=== PATIENT | female | born 1955 | race Caucasian/White ===

== ENCOUNTER 2023-08-09 07:34 | Outpatient (REF) | payer OTHER, SELFPAY ==
--- NOTE | ~2023-08-09 | XR_ITS ---
EXAMINATION: XR HIP, RIGHT CLINICAL INFORMATION: Pain in right hip COMPARISON: None available. TECHNIQUE: AP pelvis and Two views of the right hip. FINDINGS: No fracture. Alignment is anatomic. Hip joint spaces are well maintained. Subchondral sclerosis is seen along the superior-lateral aspect of each acetabulum. The sacroiliac joints and pubic symphysis are normal. Soft tissues are unremarkable. XR/XR hip RT min 2V IMPRESSION: Mild degenerative change of the hips.
== END 2023-08-09 07:35 | disposition home or self-care (01) ==
LOC: HO.HOSX 07:34
PROVIDERS: Visit Provider Physician Assistant
DX: M70.61 Trochanteric bursitis, right hip (principal)
CPT/HCPCS: 20610; 73502; J1010

== ENCOUNTER 2023-08-09 09:36 | Outpatient (AMB) | payer OTHER, SELFPAY ==
--- NOTE | 2023-08-09 09:56 | MHC.OFFVIS ---
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 Patient reports her pain has been present for over a year. She was previously seen at [facility] and had an MRI done of her left pelvis. Currently she is unable to lay on her right side, stating feels like a lump on her hip. Her pain is located in her groin and lower back pain area. States a tenderness on the outside of her hip. No previous tx. Allergies azithromycin Allergy (Unknown, Verified 08/09/23 10:10) redness, sensative clotrimazole Allergy (Unknown, Verified 08/09/23 10:10) sensativity codeine Allergy (Unknown, Verified 08/09/23 10:10) Hives metronidazole Allergy (Unknown, Verified 08/09/23 10:10) sensativity povidone-iodine [Betadine] Allergy (Unknown, Verified 08/09/23 10:10) sensitivity soap [Betadine] Allergy (Unknown, Verified 08/09/23 10:10) sensativity sucralfate [Carafate] Allergy (Unknown, Verified 08/09/23 10:10) sensativity Erythromycin Allergy (Unknown, Uncoded 08/09/23 10:10) Hives sulfa Allergy (Unknown, Uncoded 08/09/23 10:10) Hives HPI HPI 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 She was previously seen at [facility] where an MRI was performed on her left pelvis. She reports she has pain at her groin and lower back region. She also states she has tenderness on the outside of her hip. She notices a lump as well as numbness and tingling with sleeping on her right side. She has not had any physical therapy or treatment for her hip. She does not have a history of diabetes. 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 Review of Systems Const All systems reviewed & are unremarkable except as noted in HPI and below Physical Exam Vital Signs: BMI result Body Mass Index 36.4 Const General: cooperative, healthy appearing, comfortable, no acute distress, well developed and alert Orientation/consciousness: patient oriented x3 HEENT Head: Yes normal to inspection, Yes normocephalic and Yes atraumatic Eyes General: appearance normal, both eyes and all related structures Resp Effort & Inspection: normal respiratory effort and able to speak in complete sentences Cardio Rate: regular rate Peripheral pulses: Peripheral pulses 2+ throughout GI Palpation (GI): Soft to palpation Skin Lesions: no lesions Rashes: no rashes Neuro General: patient oriented x3 Extrem Other: Right hip: Normal to inspection. No pain with ROM of the hip. Pain along the greater trochanter. No pain with hip flexion or abduction. Negative tenderness along the SI joint, Negative SLR. NVI. Office Procedures Joint Injection/Drain Joint Injection/Drain Details: right trochanteric bursa Prep: site was prepped using aseptic technique, ethochloride spray was applied and injection warnings given Injected: 80 mg of, DepoMedrol, with 8 mL of and 1% plain lidocaine Procedure: The patient tolerated the procedure well and there was some relief with the local anesthesia Coding 15243 - Glenohumeral/Tronchanteric Bursa/Intraarticular Procedure code (CPT) selection complete Results Reviewed Results Reviewed: Xrays were obtained in the office today and personally reviewed by me of the right hip show mild oa Assessment & Plan Assessment & Plan (1) Trochanteric bursitis, right hip: Code(s): M70.61 - Trochanteric bursitis, right hip Category: Medical Plan We discussed options today which include steroid injection. They did consent to move forward with the right hip injection, which was tolerated well. I recommended rest, ice and elevation and OTC anti-inflammatories PRN for discomfort. A course of physical therapy was also placed in the office today. If symptoms persist or worsens over the next 6-8 weeks, patient will contact the office, otherwise follow-up as needed. Orders: Orders XR hip RT min 2V Today M25.551 - Pain in right hip PT Evaluation and Treatment Today M70.61 - Trochanteric bursitis, right hip Patient Instructions: Scribed for Ta-Gillian Puente PA-C, by kirti Tam scribe, on 08/09/2023 at 9:45 AM EST.? I, Abena Puente PA-C, have personally reviewed and agree with the information entered by the heather. Coding Level of Care Code New Pt Level 3 (60834) Diagnoses Trochanteric bursitis, right hip M70.61 CPT Codes Coding - Joint 7: 36876 - Glenohumeral/Tronchanteric Bursa/Intraarticular ([id number])
[2023-08-09 10:05] VITALS: BMI 36.4
== END 2023-08-09 10:33 | disposition home or self-care (01) ==
PROVIDERS: PCP Family Medicine; Visit Provider Physician Assistant
DX: M70.61 Trochanteric bursitis, right hip (principal)
CPT/HCPCS: 20610; 99203

== ENCOUNTER 2023-08-27 09:28 | Outpatient (AMB) | payer OTHER, SELFPAY ==
[2023-08-27 09:35] VITALS: BP 113/59; PULSE 73; BMI 36.0
--- NOTE | 2023-08-27 09:35 | A.OFFVIS_ITS ---
Vital Signs 08/27/23 09:35 Height 5 ft 5 in Weight 216 lb 7.903 oz BMI 36.0 BP 113/59 L Blood Pressure Location Lt brachial Position Sitting Pulse 73 Intake Visit Reasons: gastritis Intake Note: Aliyah presents to in office visit as a new patient for gastritis. CC: Per patient she has seen Dr Modi in the past when he use to work at [facility] and underwent colonoscopy with him. Patient c/o a lot of nausea and GERD. Per patient she mostly has mushy stools, c/o LUQ abdominal pain, and LLQ pain. Per patient she can't take PPIs because she is very sensitive to them. 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 Required: No Accompanied by: Self / Same As Patient Allergies erythromycin base Allergy (Severe, Verified 08/27/23 09:43) Hives Sulfa (Sulfonamide Antibiotics) Allergy (Severe, Verified 08/27/23 09:43) Hives azithromycin Allergy (Unknown, Verified 08/27/23 09:35) redness, sensative cephalexin [From Keflex] Allergy (Unknown, Verified 08/27/23 09:35) Unknown clotrimazole Allergy (Unknown, Verified 08/27/23 09:35) sensativity codeine Allergy (Unknown, Verified 08/27/23 09:35) Hives esomeprazole [From Nexium] Allergy (Unknown, Verified 08/27/23 09:35) Unknown levofloxacin [From Levaquin] Allergy (Unknown, Verified 08/27/23 09:35) Unknown metronidazole Allergy (Unknown, Verified 08/27/23 09:35) sensativity omeprazole Allergy (Unknown, Verified 08/27/23 09:35) Unknown povidone-iodine [Betadine] Allergy (Unknown, Verified 08/27/23 09:35) sensitivity rabeprazole [From AcipHex] Allergy (Unknown, Verified 08/27/23 09:35) Unknown soap [Betadine] Allergy (Unknown, Verified 08/27/23 09:35) sensativity sucralfate [Carafate] Allergy (Unknown, Verified 08/27/23 09:35) sensativity tetracycline Allergy (Unknown, Verified 08/27/23 09:35) Unknown HPI HPI gastritis: Details: 67-year-old female here for initial evaluation of ?gastritis. ? she is referred by [facility]. 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 EGD equal focal area of SSBE Cholecystectomy Tubal ligation Tonsillectomy Thyroglossal cyst removal Oophorectomy * ALLERGIES AcipHex - confusion Graham bandage Betadine Keflex - red face Latex Levaquin - night terrors Nexium - depression Septra Zithromax - hives Clotrimazole - hives Codeine - paresthesias Doxycycline - red face Erythromycin - hives Flagyl - neuropathy Omeprazole - arm pain Sulfa - hives Tetracycline - red face * twidox LABS: No labs in our system TODAY'S VISIT She is mostly here just to establish care since her insurance will soon change from [employer] insurance to Medicare. She has GERD and Sjogrens so that makes it worse. She had seen Dr. Modi in the past and she was told there were magnets they could put in my stomach. I advise her that this is a new and specialized procedure that is only done at tertiary centers and she would have to see surgeons at [facility] for this. (she works for [employer]). She says she can not take any H2 or PPI's but she does use TUMS. I suggest that she try baking soda in water. She is trying to eat smaller meals and control her diet. She will get pain in the LUQ and LLQ but she suffers IBS-M. We discuss peppermint tincture or IB Guard. She also will use cheese (WISPS) to bind her up and prunes for loosening my bowels. She admits she does not always drink e nough water. ROV 6 mos. 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 Review of Systems Const Denies fatigue, Denies fever(s), Denies night sweats, Denies poor appetite and Denies weight loss Eyes Details: glasses Reports requires corrective lenses ENT Reports Normal hearing present, Denies dental pain, Denies dysphagia, Denies hearing loss, Denies mouth pain, Denies odynophagia, Denies throat swelling, Denies tongue swelling and Reports other (Dentition adequate) Card Reports no additional complaints Resp Reports no additional complaints GI Details: Denies abdominal pain, Denies melena, Denies bloating, Denies hematochezia, Reports constipation, Denies GI cramping, Denies dysphagia, Denies excessive flatus, Denies early satiety, Reports heartburn, Reports diarrhea, Denies nause a, Denies odynophagia, Denies vomiting and Denies hematemesis Skin/Breast Denies pruritus, Denies lesions, Denies rash and Denies jaundice Neuro Reports Normal hearing present and Denies Abnormal speech present Endo Denies fatigue Aller/Immun Denies throat swelling and Denies tongue swelling Physical Exam Vital Signs: Last Vital Signs Pulse 73 08/27/23 09:35 BP 113/59 L 08/27/23 09:35 BMI result Body Mass Index 36.0 Const General: cooperative, no acute distress, well developed and well groomed Nutritional Appearance: well nourished and obese Orientation/consciousness: oriented to person, oriented to place and oriented to time Limitations: No language barrier HEENT Head: Yes normocephalic and Yes atraumatic Eyes General: appearance normal, both eyes and all related structures Pupils: Equal, round and reactive pupils present Neck Neck: Yes normal visual inspection and Yes no lymphadenopathy Thyroid: Thyroid normal Resp Effort & Inspection: normal respiratory effort and able to speak in complete sentences Auscultation: clear to auscultation bilaterally Cardio Rate: regular rate Rhythm: regular rhythm Heart sounds: Normal, physiologic split S2 sound present Peripheral pulses: radial pulses present and posterior tibial pulses present GI Inspection: No distended, No Abdominal panniculus present and Yes obesity Palpation (GI): Soft to palpation, nontender, no guarding, not rigid and No hepatosplenomegaly present Percussion: Yes normal to percussion Auscultation: normal bowel sounds Rectal Exam - Female: deferred Skin General skin exam: no rashes or lesions noted, turgor normal, skin not dry, no jaundice, No spider nevi and no striae Rashes: no rashes Nails: normal Neuro General: oriented to person, oriented to place and oriented to time Cranial nerves: Yes Equal, round and reactive pupils present and Yes Normal hearing present Speech: No Abnormal speech present Extrem General: Yes normal to inspection, No clubbing, No cyanosis and No edema Psych Appearance: grossly normal and well kempt Mental Status: mental status grossly normal Speech and movement: Normal speech and movement present Affect: normal affect Attitude: cooperative Thought process: Normal thought process present and not confabulating Thought content: Normal thought content present Insight: Good insight present (Psych) Judgement: Good judgement present (Psych) Assessment & Plan Assessment & Plan (1) 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 She has GERD and Sjogrens so that makes it worse. She had seen Dr. Modi in the past and she was told there were magnets they could put in my stomach. I advise her that this is a new and specialized procedure that is only done at tertiary centers and she would have to see surgeons at [facility] for this. (she works for [employer]). She says she can not take any H2 or PPI's but she does use TUMS. I suggest that she try baking soda in water. She is trying to eat smaller meals and control her diet. She will get pain in the LUQ and LLQ but she suffers IBS-M. We discuss peppermint tincture or IB Guard. She also will use cheese (WISPS) to bind her up and prunes for loosening my bowels. She admits she does not always drink en ough water. ROV 6 mos. Coding Level of Care Code New Pt Level 3 (42832) Diagnoses 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 K22.70 Multiple drug allergies Z88.9 GERD (gastroesophageal reflux disease) K21.9
== END 2023-08-27 10:20 | disposition home or self-care (01) ==
PROVIDERS: PCP Family Medicine; Visit Provider Nurse Practitioner
DX: K22.70 Barrett's esophagus without dysplasia (principal); Z88.9 Allergy status to unspecified drugs, medicaments and biological substances; K21.9 Gastro-esophageal reflux disease without esophagitis
CPT/HCPCS: 99203

== ENCOUNTER → 2023-08-27 09:28 | Outpatient (BNVA) | payer OTHER, SELFPAY | PROVIDERS: PCP Family Medicine; Visit Provider Nurse Practitioner ==

== ENCOUNTER 2024-01-20 15:33 | Outpatient (REF) | payer OTHER, SELFPAY | END 2024-01-20 15:34 | disposition home or self-care (01) | LOC: HO.HOSX 15:33 | PROVIDERS: Visit Provider Physician Assistant | DX: Z13.89 Encounter for screening for other disorder (principal) ==

== ENCOUNTER 2024-01-21 09:29 | Outpatient (AMB) | payer OTHER, SELFPAY ==
--- NOTE | 2024-01-21 09:36 | A.OFFVIS_ITS ---
Vital Signs 01/21/24 09:44 Height 5 ft 5 in Weight 216 lb BMI 35.9 Intake Visit Reasons: OV- Right hip pain, last injection 08/09/23 Intake Note: Aliyah a 68 year old female who presents today for a follow up of right hip pain, last injection 08/09/23. Patient reports injection continues to provide her with relief. She has concerns of a lump like feeling on her right hip with laying down. States she does not have much pain. She has concerns of throbbing pain in the posterior aspect of left knee as well as a marble size lump. Her discomfort present over this past weekend. Allergies erythromycin base Allergy (Severe, Verified 01/21/24 09:47) Hives Sulfa (Sulfonamide Antibiotics) Allergy (Severe, Verified 01/21/24 09:47) Hives azithromycin Allergy (Unknown, Verified 01/21/24 09:47) redness, sensative cephalexin [From Keflex] Allergy (Unknown, Verified 01/21/24 09:47) Unknown clotrimazole Allergy (Unknown, Verified 01/21/24 09:47) sensativity codeine Allergy (Unknown, Verified 01/21/24 09:47) Hives esomeprazole [From Nexium] Allergy (Unknown, Verified 01/21/24 09:47) Unknown levofloxacin [From Levaquin] Allergy (Unknown, Verified 01/21/24 09:47) Unknown metronidazole Allergy (Unknown, Verified 01/21/24 09:47) sensativity omeprazole Allergy (Unknown, Verified 01/21/24 09:47) Unknown povidone-iodine [Betadine] Allergy (Unknown, Verified 01/21/24 09:47) sensitivity rabeprazole [From AcipHex] Allergy (Unknown, Verified 01/21/24 09:47) Unknown soap [Betadine] Allergy (Unknown, Verified 01/21/24 09:47) sensativity sucralfate [Carafate] Allergy (Unknown, Verified 01/21/24 09:47) sensativity tetracycline Allergy (Unknown, Verified 01/21/24 09:47) Unknown HPI HPI OV- Right hip pain, last injection 08/09/23: Details: 68-year-old female who returns to the office today for a follow-up of right hip pain. She had her last injection on 08/09/23 that has been providing her relief. She currently states she has mild pain as well as a lump on her right hip with laying down. She also experiences numbness with laying on her right hip. Her pain alleviates with exercising. She also reports she has throbbing pain at the posterior aspect of her left knee as well as a marble sized lump. Her discomfort presented over this past weekend. She also has swelling in her leg. 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 Review of Systems Const All systems reviewed & are unremarkable except as noted in HPI and below Physical Exam Vital Signs: BMI result Body Mass Index 35.9 Const General: cooperative, healthy appearing, comfortable, no acute distress, well developed and alert Orientation/consciousness: patient oriented x3 HEENT Head: Yes normal to inspection, Yes normocephalic and Yes atraumatic Eyes General: appearance normal, both eyes and all related structures Resp Effort & Inspection: normal respiratory effort and able to speak in complete sentences Cardio Rate: regular rate Peripheral pulses: Peripheral pulses 2+ throughout GI Palpation (GI): Soft to palpation Skin Lesions: no lesions Rashes: no rashes Neuro General: patient oriented x3 Extrem Other: Right hip: Normal to inspection. No pain with ROM of the hip. Pain along the greater trochanter. No pain with hip flexion or abduction. Negative tenderness along the SI joint, Negative SLR. NVI. Left knee: Normal to inspection. She does have a marble sized palpable cyst like structure along the posteriomedial aspect of the knee. No tenderness to palpation. This is mobile and reducible___. Calf supple, nontender. NVI. Assessment & Plan Assessment & Plan (1) Trochanteric bursitis, right hip: Code(s): M70.61 - Trochanteric bursitis, right hip Category: Medical Plan She does have physical therapy scheduled for her right hip which she will continue with. I did give her an updated order in the office today. For her left knee, an US of the left knee was ordered to further evaluate the cystic structures. I did explain that this is likely a hardy cyst but we will obtain an US for definitive measures. She is content with this plan and will see me back as needed. Orders: Orders PT Evaluation and Treatment Today M70.61 - Trochanteric bursitis, right hip XR knee RT 3V Today M17.11 - Unilateral primary osteoarthritis, right knee XR knee LT 1V Today M25.562 - Pain in left knee US venous duplex LE LT Today M71.22 - Synovial cyst of popliteal space [Hardy], left knee, R60.9 - Edema, unspecified Patient Instructions: Scribed for Abena Puente PA-C, by Martin Rose nuclear medicine medical director, on 01/21/2024 at 9:30 AM EST.? I, Abena Puente PA-C, have personally reviewed and agree with the information entered by the scribe. Coding Level of Care Code Est Pt Level 3 (80903) Complex EM visit Add On G2211 Diagnoses Trochanteric bursitis, right hip M70.61
[2024-01-21 09:44] VITALS: BMI 35.9
== END 2024-01-21 09:50 | disposition home or self-care (01) ==
PROVIDERS: PCP Family Medicine; Visit Provider Physician Assistant
DX: M70.61 Trochanteric bursitis, right hip (principal)
CPT/HCPCS: 99213

== ENCOUNTER 2024-01-21 12:46 | Outpatient (REF) | payer OTHER, SELFPAY | END 2024-01-21 12:47 | disposition home or self-care (01) | LOC: HO.HOSX 12:46 | PROVIDERS: Visit Provider Physician Assistant | DX: Z13.89 Encounter for screening for other disorder (principal) ==

== ENCOUNTER 2024-02-25 08:48 | Outpatient (AMB) | payer OTHER, SELFPAY ==
[2024-02-25 08:51] VITALS: BP 123/76; PULSE 88; BMI 36.2
--- NOTE | 2024-02-25 08:51 | A.OFFVIS_ITS ---
Vital Signs 02/25/24 08:51 Height 5 ft 5 in Weight 217 lb 13.067 oz BMI 36.2 BP 123/76 Blood Pressure Location Rt brachial Position Sitting Pulse 88 Intake Visit Reasons: 6 month follow up Intake Note: Patient here for 6m follow up Gerd. Reports is due for colonoscopy in 2024. Patient c/o:Had Covid for the first time in January. Reports lt lower abd pain with BM. Would like to know if Benefiber is okay to take. Had EGD at [facility] in December 2022. Was told that no longer has Ventura's. 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 Accompanied by: Self / Same As Patient Allergies erythromycin base Allergy (Severe, Verified 02/25/24 08:59) Hives Sulfa (Sulfonamide Antibiotics) Allergy (Severe, Verified 02/25/24 08:59) Hives azithromycin Allergy (Unknown, Verified 02/25/24 08:59) redness, sensative cephalexin [From Keflex] Allergy (Unknown, Verified 02/25/24 08:59) Unknown clotrimazole Allergy (Unknown, Verified 02/25/24 08:59) sensativity codeine Allergy (Unknown, Verified 02/25/24 08:59) Hives esomeprazole [From Nexium] Allergy (Unknown, Verified 02/25/24 08:59) Unknown levofloxacin [From Levaquin] Allergy (Unknown, Verified 02/25/24 08:59) Unknown metronidazole Allergy (Unknown, Verified 02/25/24 08:59) sensativity omeprazole Allergy (Unknown, Verified 02/25/24 08:59) Unknown povidone-iodine [Betadine] Allergy (Unknown, Verified 02/25/24 08:59) sensitivity rabeprazole [From AcipHex] Allergy (Unknown, Verified 02/25/24 08:59) Unknown soap [Betadine] Allergy (Unknown, Verified 02/25/24 08:59) sensativity sucralfate [Carafate] Allergy (Unknown, Verified 02/25/24 08:59) sensativity tetracycline Allergy (Unknown, Verified 02/25/24 08:59) Unknown HPI HPI 6 month follow up: Details: Assessment & Plan (1) 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 She has GERD and Sjogrens so that makes it worse. She had seen Dr. Modi in the past and she was told there were magnets they could put in my stomach. I advise her that this is a new and specialized procedure that is only done at tertiary centers and she would have to see surgeons at [facility] for this. (she works for [employer]). She says she can not take any H2 or PPI's but she does use TUMS. I suggest that she try baking soda in water. She is trying to eat smaller meals and control her diet. She will get pain in the LUQ and LLQ but she suffers IBS-M. We discuss peppermint tincture or IB Guard. She also will use cheese (WISPS) to bind her up and prunes for loosening my bowels. She admits she does not always drink enough water. ROV 6 mos. TODAY'S VISIT She had COVID for the first time and since her stomach has been generally upset and her bowels very soft and frequent. We discuss a fiber supplement and she is doing pablito. We are limited r/t her multiple medication allergies. She had an EGD in 2022 and she says it was negative for SSBE. I see the report and it is okay. She is due for a colonoscopy. Her last was in 2019 and she has a FHX of crc in her mother and paternal grandfather. Her asthma is well controlled and she denies any cardiac problems. NO prior problems with anesthesia or sedation. No ID problems. She has a FHX of crc as noted and she has had polyps removed. 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 Review of Systems Const Denies fatigue, Denies fever(s), Denies night sweats, Denies poor appetite and Denies weight loss Eyes Details: glasses Reports requires corrective lenses ENT Reports Normal hearing present, Denies dental pain, Denies dysphagia, Denies hearing loss, Denies mouth pain, Denies odynophagia, Denies throat swelling, Denies tongue swelling and Reports other (Dentition adequate) GI Details: Denies abdominal pain, Denies melena, Denies bloating, Denies hematochezia, D enies constipation, Denies GI cramping, Denies dysphagia, Denies excessive flatus, Denies early satiety, Denies heartburn, Denies diarrhea, Denies nausea, Denies odynophagia, Denies vomiting and Denies hematemesis Skin/Breast Denies pruritus, Denies lesions, Denies rash and Denies jaundice Neuro Reports Normal hearing present and Denies Abnormal speech present Endo Denies fatigue Aller/Immun Denies throat swelling and Denies tongue swelling Physical Exam Vital Signs: Last Vital Signs Pulse 88 02/25/24 08:51 BP 123/76 02/25/24 08:51 BMI result Body Mass Index 36.2 Const General: cooperative, no acute distress, well developed and well groomed Nutritional Appearance: well nourished and obese Orientation/consciousness: oriented to person, oriented to place and oriented to time Limitations: No language barrier HEENT Head: Yes normocephalic and Yes atraumatic Eyes General: appearance normal, both eyes and all related structures Pupils: Equal, round and reactive pupils present Neck Neck: Yes normal visual inspection and Yes no lymphadenopathy Thyroid: Thyroid normal Resp Effort & Inspection: normal respiratory effort and able to speak in complete sentences Auscultation: clear to auscultation bilaterally Cardio Rate: regular rate Rhythm: regular rhythm Heart sounds: Normal, physiologic split S2 sound present Peripheral pulses: radial pulses present and posterior tibial pulses present GI Inspection: No distended, Yes Abdominal panniculus present and Yes obesity Palpation (GI): Soft to palpation, nontender, no guarding, not rigid and No hepatosplenomegaly present Percussion: Yes normal to percussion Auscultation: normal bowel sounds Rectal Exam - Female: deferred Skin General skin exam: no rashes or lesions noted, turgor normal, skin not dry, no jaundice, No spider nevi and no striae Rashes: no rashes Nails: normal Neuro General: oriented to person, oriented to place and oriented to time Cranial nerves: Yes Equal, round and reactive pupils present and Yes Normal hearing present Speech: No Abnormal speech present Extrem General: Yes normal to inspection, No clubbing, No cyanosis and No edema Psych Appearance: grossly normal and well kempt Mental Status: mental status grossly normal Speech and movement: Normal speech and movement present Affect: normal affect Attitude: cooperative Thought process: Normal thought process present and not confabulating Thought content: Normal thought content present Insight: Good insight present (Psych) Judgement: Good judgement present (Psych) Assessment & Plan Assessment & Plan (1) 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: Comment: Focal area of 07/2022 scope resolved by 12/2022 scope Code(s): K22.70 - Ventura's esophagus without dysplasia Category: Medical (2) GERD (gastroesophageal reflux disease): Code(s): K21.9 - Gastro-esophageal reflux disease without esophagitis Category: Medical (3) Multiple drug allergies: Code(s): Z88.9 - Allergy status to unspecified drugs, medicaments and biological substances Category: Medical (4) Family history of colon cancer in mother: Code(s): Z80.0 - Family history of malignant neoplasm of digestive organs Category: Medical (5) Pre-op examination: Code(s): Z01.818 - Encounter for other preprocedural examination Category: Medical Plan She had COVID for the first time and since her stomach has been genreally upset and her bowels very soft and frequent. We discuss a fiber supplement and she is doing pablito. We are limited r/t her multiple medication allergies. She had an EGD in 2022 and she says it was negative for SSBE. I see the report and it is okay. She is due for a colonoscopy. Her last was in 2019 and she has a FHX of crc in her mother and paternal grandfather. Her asthma is well controlled and she denies any cardiac problems. NO prior problems with anesthesia or sedation. No ID problems. She has a FHX of crc as noted and she has had polyps removed. 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
--- OUTSIDE RECORDS SUMMARY | 2024-02-25 08:59 | XMS_ITS | Continuity of Care Document ---
Author Organization [facility] Pul[facility] ed[facility] Address [address] [address]- Care Team Providers Care Order Entry Representative Name Role Phone Leonides Lugo MD Primary Care Physician Encounter [facility] Date(s): 01/20/24 - 02/19/24 [facility] [address] [place] [id number] Attending Physician: Gunnar Melgoza Admitting Physician: Gunnar Melgoza Referring Physician: Admtr [id number] Encounter Type: Triage Allergies, Adverse Reactions, Alerts Substance Criticality Severity Reaction Reaction Severity Status codeine crawling feelin g Itching of skin Active tetracycline red face Headache Active sulfa drugs Hives Active Levaquin Night terror 13-MAY-2013 07:24:12<$> Active doxycycline red face Headache Active erythromycin Hives Active azithromycin Vomiting Active omeprazole heart palpitations Active clotrimazole hives Active Keflex Red face 07:18:10<$> Active Septra Red face 07:18:10<$> Active Betadine itch Active Latex unknown Active Other Environmental Allergy 1, 2 Active metroNIDAZOLE neuropathy Motor peripheral neuropathy Active Adhesive Bandage redness to the skin Active NexIUM DEPRESSION Active AcipHex confusion Active SARS-CoV-2 (COVID-19) mRNA-1273 vaccine 3 Moderna Vaccine Rash/Hives Active 1Seasonal allergies 2sensitivity to cleaning supplies 3Moderna Vaccine Immunizations Given and Recorded Vaccine Date Status Refusal Reason influenza virus vaccine, inactivated 12/13/23 Chiki rded influenza virus vaccine, inactivated 12/07/22 Chiki rded influenza virus vaccine, inactivated 12/08/21 Chiki rded influenza virus vaccine, inactivated 01/20/21 Chiki rded influenza virus vaccine, inactivated 12/11/19 Chiki rded influenza virus vaccine, inactivated 1 01/20/18 Re corded influenza virus vaccine, inactivated 12/14/17 Chiki rded influenza virus vaccine, inactivated 2 12/04/16 Gi maia influenza virus vaccine, inactivated 3 12/09/15 Re corded influenza virus vaccine, inactivated 4 12/26/14 Re corded influenza virus vaccine, inactivated 12/22/13 Give n SARS-CoV-2(COVID-19)mRNA-LNP vac([id number]) 12/28/22 Recorded pneumococcal 20-valent conjugate vaccine 5 06/05/22 Given SARS-CoV-2 (COVID-19) mRNA-1273 vaccine 07/04/21 R ecorded SARS-CoV-2 (COVID-19) mRNA-1273 vaccine 01/11/21 R ecorded SARS-CoV-2 (COVID-19) mRNA-1273 vaccine 04/04/20 R ecorded SARS-CoV-2 (COVID-19) mRNA-1273 vaccine 03/07/20 R ecorded SARS-CoV-2 mRNA ([id number]) vax 04/04/20 Recorded Influenza Virus Vaccine (oldterm) 12/06/18 Recorde d tetanus-diphtheria toxoids (Td) 6 10/24/18 Given Zoster Vaccine Live 7 02/08/15 Given tetanus/diphtheria/pertussis, acel(Tdap) 8 03/08/09 Given 1Result Comment: [02/16/2018] done at work 2Result Comment: [12/04/2016] [facility] [id number] 3Result Comment: [04/30/2016] [facility] 4Result Comment: [01/07/2015] Given by employer 5Result Comment: [facility] [id number] 6Result Comment: [facility] [id number] 7Result Comment: [02/08/2015] consent signed. 8Admin Note: done at [facility] services Medications albuterol CFC free 90 mcg/inh inhalation aerosol 2, puffs, Inhalation, 4 times a day, PRN, # 18 Gm, Refills 0, Tot. Refills 0, Maintenance, 07/23/23 7:08:00 AM EDT, Aerosol, Route to Pharmacy Electronically, [id number], [facility], 164, cm, 07/21/23 11:11:00 EDT, Height, 97.7, kg, 12/15/22 14:08:00 EDT, Dry Weight Start Date: 07/23/23 Status: Ordered Quantity: 18.0 Unit: g Repeat number: 1 betamethasone topical dipropionate, augmented 0.05% cream 50 Gm, 0 Refill(s), APPLY A THIN LAYER TO ECZEMA ON TRUNK/EXTREMITIES 2 TIMES A DAY NEEDED. CAN USE FOR 1 TO 2 WEEKS, THEN TAKE 1 WEEK OFF. CAN REPEAT AFTER OFF WEEK., 0 Refills, 01/10/24 1:48:00 PM EST, Partial fill upon patient request if the prescription is for a schedule II opioid drug. Start Date: 01/10/24 Status: Ordered Repeat number: 1 desoximetasone 0.05% topical cream See Instructions, PRN Other, Apply a thin film topically 2 times a day, # 15 Gm, 0 Refills, Maintenance, 10/27/23 1:31:00 PM EDT, Cream, [facility], Partial fill upon patient request if the prescription is for a schedule II opioid drug., Apply a thin film topically 2 times a day,PRN:Other, 164, cm, 10/01/23 8:47:00 EDT, Height, 97.7, kg, 12/15/22 14:08:00 EDT, Dry Weight Start Date: 10/27/23 Status: Ordered Quantity: 15.0 Unit: g Repeat number: 1 Multivitamin 1 tab, By Mouth, Daily in AM, 0 Refills, Maintenance, 05/25/12 9:10:38 AM EDT Start Date: 05/25/12 Status: Ordered Repeat number: 1 mupirocin 2% topical ointment See Instructions, APPLY TOPICALLY TO AFFECTED AREA TWO TIMES A DAY FOR 14 DAYS, # 22 Gm, 0 Refills,Maintenance, 10/28/23 3:21:00 PM EDT, [facility], 14, APPLY TOPICALLY TO AFFECTED AREATWO TIMES A DAY FOR 14 DAYS, 164, cm, 10/01/23 8:47:00 EDT, Height, 97.7, kg, 12/15/22 14:08:00 EDT, Dry Weight Start Date: 10/28/23 Status: Ordered Quantity: 22.0 Unit: g Repeat number: 1 Qvar Redihaler 40 mcg/inh inhalation aerosol 1 puffs, Inhalation, 2 times a day, PRN Wheezing/Shortness of Breath, # 10.6 Gm, 0 Refills, Maintenance, 01/28/24 12:56:00 PM EST, Aerosol, Partial fill upon patient request if the prescription is for a schedule II opioid drug. Start Date: 01/28/24 Status: Ordered Quantity: 10.6 Unit: g Repeat number: 1 sertraline 50 mg oral tablet 1 tablet = 50 mg, By Mouth, Daily, # 90 tablet, 3 Refills, Maintenance, 02/18/24 10:04:00 AM EST, Tablet, [id number], Partial fill upon patient request if the prescription is for a schedule II opioid drug., 164, cm, 02/14/24 13:50:00 EST, Height, 97.7, kg, 12/15/22 14:08:00 EDT, Dry Weight Start Date: 02/18/24 Status: Ordered Quantity: 90.0 Unit: tablet Repeat number: 4 traZODone 100 mg oral tablet 100 mg, 1, tablet, By Mouth, Daily at bedtime, # 90 tablet, Refills 1, Tot. Refills 1, Maintenance,12/13/23 11:14:00 AM EDT, Route to Pharmacy Electronically, [facility], Partial fill upon patient request if the prescription is for a schedule II opioid drug., 164, cm, 12/13/23 10:38:00 EDT, Height, 97.7, kg, 12/15/22 14:08:00 EDT, Dry Weight Start Date: 12/13/23 Status: Ordered Quantity: 90.0 Unit: tablet Repeat number: 2 Vitamin D3 Gummies By Mouth, Daily, 0 Refills, Maintenance, 06/17/23 8:08:00 AM EDT, Partial fill upon patient request if the prescription is for a schedule II opioid drug. Start Date: 06/17/23 Status: Ordered Repeat number: 1 ZyrTEC 10 mg oral tablet 1 tablet = 10 mg, By Mouth, Daily, PRN for allergy symptoms, # 10 tablet, 0 Refills, Maintenance, 01/28/24 12:57:00 PM EST, Tablet, Partial fill upon patient request if the prescription is for a schedule II opioid drug. Start Date: 01/28/24 Status: Ordered Quantity: 10.0 Unit: tablet Repeat number: 1 Problem List Condition Confirmation Course Effective Dates Status Health St atus Informant Ventura's esophagus Confirmed Active Samantha's thyroiditis Confirmed Active Insomnia Confirmed Active Overactive bladder Confirmed Active Severe obesity (BMI 35.0-39.9) with comorbidity Confirmed Active Sjogrens syndrome Confirmed Active Social History Social History Type Response Tobacco Other: quit 1990. To bacco use times per day: Smoked 1 pack per week. Sex Sex Representation Female (finding) Patient Care team information Care Team Personnel Name: Ramya Sweeney NP Position: [facility] PCO Associate Professional Member Role: Lifetime Consulting Provider Address: [address] [place] [address] [address] Telecom: Name: Promise Marcum MD Position: [facility] BRICK BAKER Member Role: Lifetime BRICK BAKER Physician Address: [address] Deportation Officer [place], [place] [address] Telecom: Name: Jeanie Giron MD Position: [facility] BRICK BAKER Member Role: Lifetime BRICK BAKER Physician Address: [address] [facility] Deportation Officer [place] [id number] Telecom: Name: Leonides Lugo MD Position: [facility] Physician - Primary Care Member Role: PCP Address: [address] [place] [address] [address] [place] [address]- Telecom: Care Team Related Persons Name: MARIAM REGAN Insurance Providers Guarantor name: MATIAS REGAN Health Plan Information #: 1 Payer: AMANDA [facility] PPO Member Number: NA Policy Number: NA Group Number: NA
--- OUTSIDE RECORDS SUMMARY | 2024-02-25 08:59 | XMS_ITS | Continuity of Care Document ---
Author Organization [facility] Adult Address [address] [place] [address]- Care Team Providers Care Leather Whitener Name Role Phone Parish HERRERA, Leonieds Primary Care Physician Encounter [facility] Date(s): 12/28/23 - 01/27/[address] [address]- Encounter Type: Triage Allergies, Adverse Reactions, Alerts Substance Criticality Severity Reaction Reaction Severity Status codeine crawling feelin g Itching of skin Active doxycycline red face Headache Active tetracycline red face Headache Active sulfa drugs Hives Active erythromycin Hives Active azithromycin Vomiting Active omeprazole heart palpitations Active clotrimazole hives Active Keflex Red face 07:18:10<$> Active Septra Red face 07:18:10<$> Active Betadine itch Active Levaquin Night terror 13-MAY-2013 07:24:12<$> Active Adhesive Bandage redness to the skin Active Latex unknown Active Other Environmental Allergy 1, 2 Active SARS-CoV-2 (COVID-19) mRNA-1273 vaccine 3 Moderna Vaccine Rash/Hives Active metroNIDAZOLE neuropathy Motor peripheral neuropathy Active NexIUM DEPRESSION Active AcipHex confusion Active 1Seasonal allergies 2sensitivity to cleaning supplies [...] virus vaccine, inactivated 12/22/13 Give n SARS-CoV-2(COVID-19)mRNA-LNP vac(pel653) 12/28/22 Recorded pneumococcal 20-valent conjugate vaccine 5 06/05/22 Given SARS-CoV-2 (COVID-19) mRNA-1273 vaccine 07/04/21 R ecorded SARS-CoV-2 (COVID-19) mRNA-1273 vaccine 01/11/21 R ecorded SARS-CoV-2 (COVID-19) mRNA-1273 vaccine 04/04/20 R ecorded SARS-CoV-2 (COVID-19) mRNA-1273 vaccine 03/07/20 R ecorded SARS-CoV-2 mRNA ([id number]) vax 04/04/20 Recorded Influenza Virus Vaccine (oldterm) 12/06/18 Recorde d tetanus-diphtheria toxoids (Td) 6 10/24/18 Given Zoster Vaccine Live 7 02/08/15 Given tetanus/diphtheria/pertussis, acel(Tdap) 8 03/08/09 Given 1Result Comment: [02/16/2018] done at work 2Result Comment: [12/04/2016] [facility] [id number] 3Result Comment: [04/30/2016] [facility] 4Result Comment: [01/07/2015] Given by employer 5Result Comment: [facility] [id number] 6Result Comment: [facility] [id number] 7Result Comment: [02/08/2015] consent signed. 8Admin Note: done at [facility] services Medications albuterol CFC free 90 mcg/inh inhalation aerosol 2, puffs, Inhalation, 4 times a day, PRN, # 18 Gm, Refills 0, Tot. Refills 0, Maintenance, 07/23/23 7:08:00 AM EDT, Aerosol, Route to Pharmacy Electronically, [id number], [facility], 164, cm, 07/21/23 11:11:00 EDT, [...] Refills, Maintenance, 10/27/23 1:31:00 PM EDT, Cream, [facility], Partial fill upon patient request if [...] Gm, 0 Refills,Maintenance, 10/28/23 3:21:00 PM EDT, [facility], 14, APPLY TOPICALLY TO AFFECTED AREATWO TIMES A DAY FOR 14 DAYS, 164, cm, 10/01/23 8:47:00 EDT, Height, 97.7, kg, 12/15/22 14:08:00 EDT, Dry Weight Start Date: 10/28/23 Status: Ordered Quantity: 22.0 Unit: g Repeat number: 1 traZODone 100 mg oral tablet 100 mg, 1, tablet, By Mouth, Daily at bedtime, # 90 tablet, Refills 1, Tot. Refills 1, Maintenance,12/13/23 11:14:00 AM EDT, Route to Pharmacy Electronically, [facility], Partial fill upon patient request if [...] 06/17/23 Status: Ordered Repeat number: 1 ZyrTEC Hives 1 mg/mL oral syrup 5 mL = 5 mg, By Mouth, Daily in AM, # 450 mL, 0 Refills, Maintenance, 11/21/20 11:12:00 AM EDT, Syrup, Partial fill upon patient request if the prescription is for a schedule II opioid drug. Start Date: 11/21/20 Status: Ordered Quantity: 450.0 Unit: mL Repeat number: 1 Problem List Condition Confirmation [...] Care team information Care Team Personnel Name: Patel BURNETT, Ramya Jensen Position: [facility] PCO Associate Professional Member Role: Lifetime Consulting Provider Address: [address] [place] [id number] Telecom: Name: Promise Marcum MD Position: [facility] TOP INSTALLER MD Member Role: Lifetime TOP INSTALLER Physician Address: [address] [place] [address] [address] [place], [place] [address] Telecom: Name: Mack HERRERA, Jeanie Garcia Position: [facility] TOP INSTALLER MD Member Role: Lifetime TOP INSTALLER Physician Address: [address] [place] [address] [address] [place], [place] [address] Telecom: Name: Leonides Lugo MD Position: [facility] Physician - Primary Care Member Role: PCP Address: [address] [place] [address] Telecom: Care Team Related Persons Name: MARIAM REGAN Insurance Providers Guarantor name: MATIAS REGAN Health Plan Information #: 1 Payer: AMANDA [facility] PPO Member Number: NA Policy Number: NA Group Number: NA
--- OUTSIDE RECORDS SUMMARY | 2024-02-25 09:00 | XMS_ITS | Continuity of Care Document ---
Author Organization [facility] Adult Address [address] [place] [address]- Care Team Providers Care Hotel Houseman Name Role Phone Parish HERRERA, [place]en[place] Primary Care Physician Encounter [facility] Date(s): 01/17/24 - 02/16/[address] [address]- Encounter Type: Triage Allergies, Adverse Reactions, Alerts Substance Criticality Severity Reaction Reaction Severity Status codeine crawling feelin g Itching of skin Active Levaquin Night terror 13-MAY-2013 07:24:12<$> Active doxycycline red face Headache Active tetracycline red face Headache Active sulfa drugs Hives Active erythromycin Hives Active azithromycin Vomiting Active omeprazole heart palpitations Active clotrimazole hives Active Keflex Red face 07:18:10<$> Active Septra Red face 07:18:10<$> Active Betadine itch Active Adhesive Bandage redness to the skin Active Other Environmental Allergy 1, 2 Active Latex unknown Active SARS-CoV-2 (COVID-19) mRNA-1273 vaccine 3 Moderna [...] virus vaccine, inactivated 12/22/13 Give n SARS-CoV-2(COVID-19)mRNA-LNP vac([id number]) 12/28/22 Recorded pneumococcal 20-valent conjugate vaccine 5 06/05/22 Given SARS-CoV-2 (COVID-19) mRNA-1273 vaccine 07/04/21 R ecorded SARS-CoV-2 (COVID-19) mRNA-1273 vaccine 01/11/21 R ecorded SARS-CoV-2 (COVID-19) mRNA-1273 vaccine 04/04/20 R ecorded SARS-CoV-2 (COVID-19) mRNA-1273 vaccine 03/07/20 R ecorded SARS-CoV-2 mRNA (jrkkwrq-zoep-rooka) vax 04/04/20 Recorded Influenza Virus Vaccine (oldterm) 12/06/18 Recorde d tetanus-diphtheria toxoids (Td) 6 10/24/18 Given Zoster Vaccine Live 7 02/08/15 Given tetanus/diphtheria/pertussis, acel(Tdap) 8 03/08/09 Given 1Result Comment: [02/16/2018] done at work 2Result Comment: [12/04/2016] [facility] [id number] 3Result Comment: [04/30/2016] [facility] 4Result Comment: [01/07/2015] Given by employer 5Result Comment: [facility] [id number] 6Result Comment: [facility] [id number] 7Result Comment: [02/08/2015] consent signed. 8Admin Note: done at [facility] services Medications albuterol CFC free 90 mcg/inh inhalation aerosol 2, puffs, Inhalation, 4 times a day, PRN, # 18 Gm, Refills 0, Tot. Refills 0, Maintenance, 07/23/23 7:08:00 AM EDT, Aerosol, Route to Pharmacy Electronically, [id number], [facility], 164, cm, 07/21/23 11:11:00 EDT, [...] Refills, Maintenance, 10/27/23 1:31:00 PM EDT, Cream, [facility], Partial fill upon patient request if [...] Gm, 0 Refills,Maintenance, 10/28/23 3:21:00 PM EDT, [facility], 14, APPLY TOPICALLY TO AFFECTED [...] Quantity: 10.6 Unit: g Repeat number: 1 traZODone 100 mg oral tablet 100 mg, 1, tablet, By Mouth, Daily at bedtime, # 90 tablet, Refills 1, Tot. Refills 1, Maintenance,12/13/23 11:14:00 AM EDT, Route to Pharmacy Electronically, [facility], Partial fill upon patient request [...] Personnel Name: Patel BURNETT, Ramya Jensen Position: [facility] PCO Associate Professional Member Role: [employer] Consult[employer] Provider Address: [address] [place] [address] [place], [place] [address] Telecom: Name: Promise Marcum MD Position: [facility] GEOLOGIC TECHNICIAN MD Member Role: [employer] GEOLOGIC TECHNICIAN Physician Address: [address] [place] [address] Retail Worker [place] [phone] Telecom: Name: Jeanie Giron MD Position: [facility] GEOLOGIC TECHNICIAN MD Member Role: [employer] GEOLOGIC TECHNICIAN Physician Address: [address] [place] [address] [place] [address] [employer] Telecom: Name: Leonides Lugo MD Position: [facility] Physician - Primary Care Member Role: PCP Address: [address] [place] [id number] [place] Telecom: Care Team Related Persons Name: MARIAM REGAN Insurance Providers Guarantor name: MATIAS JASS Health Plan Information #: 1 Payer: AMANDA [facility] PPO Member Number: NA Policy Number: NA Group Number: [id number]
--- OUTSIDE RECORDS SUMMARY | 2024-02-25 09:00 | XMS_ITS | Continuity of Care Document ---
Author Organization [place] - [facility], [facility] Address [address] [place] [address] Care Team Providers Care Livestock Rancher Name Role Phone AMBER DIETRICH Primary Care Provider Assessment Encounter Date Assessment Date Assessment LastModified by Organization Details LastModified Time 01/18/2024 01/18/2024 68-year-old female with a history of Sjogren's presents today for routine assessment. She has a few concerns today. 1. Right-sided ear blockage. Middle ear is well aerated. There is no cerumen. She has had some trouble with her TMJ which can contribute to the sensation of blockage. She reports she had a previous MRI which showed mastoid effusion, but I was able to review the images from 2019 and the mastoid air cells were clear. There was some evidence of fluid in the sphenoid sinus however. She has had regular audiograms. Her last 1 in our office was in 2020 with a high-frequency loss, slightly worse on the left in the high frequencies. She will request that her electric relay tester send her most recent ones here. I did recommend some jaw joint precautions. 2. Salivary swelling. Most recent salivary gland ultrasound was in 2021 and unremarkable. She has since had a thyroid ultrasound which showed stable nodule. The area that she notes along the margin of the mandible on the right is consistent with the margin of the masseter. I do not palpate any abnormal nodule or mass. She should continue dry mouth products. 3. Nasal dryness. There is very mild crusting on exam. I gave her a list of several afkk-nrv-gzjyy er products which she may find helpful. [email or web address] Not available 01/18/2024 12:48:28 Plan of Treatment Reminders Order Date Submit Date Provider Last Modified By Organization Details Last Modified Time Details Appointments Establish ed 15 2024 09:15A M ROSA RODRIGUEZ PA-C Not available Not available Not available Lab None recorded. Referral None recorded. Procedures None recorded. Surgeries None recorded. Imaging None recorded. Medication Orders None recorded. Patient TargetsNo targets recorded. Patient InstructionsNo instructions recorded. Reason for Referral None Reported. Problems Name Problem SNOMED Code Status Onset Date Resolution Date Notes Provider Name and Address Organization Details Recorded Time Otalgia of left ear 0795967840 Active 2016 Otalgia, left ear; Note: Date Diagnosed : 10/15/2016 6:17 PM (H92.02) Not Available [facility] 4 02:35:04 Obstructi ve sleep apnea syndrome 85452183 Active 2016 Obstructi ve sleep apnea (adult) (pediatri c); Note: Date Diagnosed : 10/15/2016 6:08 PM (G47.33) Not Available [facility] 4 02:35:05 Headache 07824201 Active 2018 Facial pain NOS; Note: Date Diagnosed : 10/20/2018 1:50 PM (R51) Not Available [facility] 4 02:35:07 Chronic sialadeni tis 405489863 Active 2015 Chronic sialoaden itis; Note: Date Diagnosed : 08/02/2015 9:06 AM (K11.23) Not Available [facility] 4 02:35:07 Chronic sphenoida l sinusitis 47100111 Active 2019 Chronic sphenoida l sinusitis ; Note: Date Diagnosed : 0 8:39 AM (J32.3) Not Available [facility] 4 02:35:04 Otalgia of right ear 7514301387 Active 2018 Otalgia, right ear; Note: Date Diagnosed : 10/20/2018 1:50 PM (H92.01) Not Available [facility] 4 02:35:14 Bilateral temporoma ndibular joint pain 14934844646 170568 Active 2018 Arthralgi a of bilateral temporoma ndibular joint; Note: Date Diagnosed : 10/20/2018 1:51 PM (M26.623) Not Available [facility] 4 02:35:05 Allergic rhinitis 08662757 Active 2013 Allergic Rhinitis; CMS Risk: moderate risk CMS Treatment : new problem (to examiner) : no additiona l workup planned N ote: Date Diagnosed : 4 10:55 AM (477.9) Not Available [facility] 4 02:35:02 Bilateral tinnitus 40282514163 02 Active 2016 Tinnitus, bilateral ; Note: Date Diagnosed : 10/15/2016 5:23 PM (H93.13) Not Available [facility] 4 02:35:01 Abnormal auditory perceptio n 72379931 Active 2018 Other abnormal auditory perceptio ns, right ear; Note: Date Diagnosed : 10/20/2018 1:51 PM (H93.291) Not Available [facility] 4 02:35:01 Gastroeso phageal reflux disease 194926025 Active 2013 Laryngoph aryngeal reflux; CMS Risk: low risk CMS Treatment : new problem (to examiner) : no additiona l workup planned N ote: Date Diagnosed : 4 10:55 AM (530.81) Not Available [facility] 4 02:35:02 Disturban ce of salivary secretion 83929860 Active 2015 Diseases of the salivary glands: Xerostomi a; Note: Date Diagnosed : 07/06/2014 11:35 AM (527.7) ; Start Date : 5 Disturb ances of salivary secretion ; Note: Date Diagnosed : 08/02/2015 9:06 AM (K11.7) Not Available [facility] 4 02:35:11 Posterior rhinorrhe a 64199007 Active 2018 Postnasal drip; Note: Date Diagnosed : 10/20/2018 1:50 PM (R09.82) Not Available [facility] 4 02:35:09 Disorder of smell 857070260 Active 2017 Other disturban saritha of smell and taste; Note: Date Diagnosed : 12/13/2017 3:41 PM (R43.8) Not Available [facility] 4 02:35:08 Disorder of taste 175051950 Active 2017 Other disturban saritha of smell and taste; Note: Date Diagnosed : 12/13/2017 3:41 PM (R43.8) Not Available [facility] 4 02:35:08 Dizziness and giddiness 885057584 Active 2016 Dizziness and giddiness ; Note: Date Diagnosed : 10/15/2016 3:52 PM (R42) Not Available [facility] 4 02:35:15 Sensorine ural hearing loss of bilateral ears 883201531 Active 2016 Sensorine ural hearing loss, bilateral ; Note: Date Diagnosed : 10/15/2016 6:08 PM (H90.3) Not Available [facility] 4 02:35:02 Dysphonia 48323754 Active 2023 Hoarsenes s; Note: Date Diagnosed : 04/06/2023 12:38 PM (R49.0) Not Available [facility] 4 02:35:02 Disorder of nasal sinus 3529902 Active 2023 Other specified disorders of nose and nasal sinuses; Note: Date Diagnosed : 07/08/2023 3:42 PM (J34.89) Not Available [facility] 4 02:35:13 Disorder of the nose 46634402 Active 2023 Other specified disorders of nose and nasal sinuses; Note: Date Diagnosed : 07/08/2023 3:42 PM (J34.89) Not Available [facility] 4 02:35:13 Chronic perichond ritis of left external ear 87810604898 38896 Active 2023 Chronic perichond ritis of left external ear; Note: Changed from H61.0 to H61.022 ( 4 3:15 PM) , Date Diagnosed : 07/08/2023 3:42 PM (H61.0) Not Available [facility] 4 02:35:14 Problem Notes None recorded. Medical Equipment None Reported. Allergies Allergen ID Allergen Name Allergen Category Reaction Reaction Severity Criticality Documentation Date Start Date Code Code System Note Provider Name and Address Organization Details Recorded Time 02958 codeine phosphate medicatio n other Not available Not available 07/20/2023 2672 RxNorm React ion: unkno wn, unspe cifie d;; Not Available [facility] 4 01:02:07 47440 levofloxa olegario medicatio n other Not available Not available 07/20/2023 77793 RxNorm React ion: unkno wn, unspe cifie d;; Not Available [facility] 4 01:02:09 17810 metronida zole hydrochlo ride medicatio n other Not available Not available 07/20/2023 72291 RxNorm React ion: unkno wn, unspe cifie d;; Not Available [facility] 4 01:02:10 61411 cephalexi n monohydra te medicatio n other Not available Not available 07/20/2023 90663 8 RxNorm React ion: unkno wn, unspe cifie d;; Not Available [facility] 4 01:02:13 99520 erythromy olegario medicatio n other Not available Not available 07/20/2023 4053 RxNorm React ion: unkno wn, unspe cifie d;; Not Available [facility] 4 01:02:14 86526 Medicinal product containin g tetracycl ine structure and acting as antibacte rial agent (product) medicatio n other Not available Not available 07/20/2023 20180 1004 SNOMED React ion: unkno wn, unspe cifie d;; Not Available [facility] 4 01:02:16 48461 Substance with sulfonami de structure and antibacte rial mechanism of action (substanc e) medicatio n other Not available Not available 07/20/2023 67426 8003 SNOMED React ion: unkno wn, unspe cifie d;; Not Available [facility] 4 01:02:18 Medications Name Sig Start Date Stop Date Status Note LastModified by Organization Details LastModified Time quickvue at-home covid-19 t USE DIRECTED active Not Available Not Available No t Available nystatin 100,000 unit/mL oral suspensio n 12/13 completed Medicati on ID: [id number] D uration Value: 14 Brand Name: nystatin Send Method: E-Prescr ibed Sub s Allowed: subs OK Medic ationGen ericName : nystatin Not Available Not Available Not Available desoximet asone 0.25 % topical cream 08/13 completed Medicati on ID: [id number] B rand Name: desoxime tasone S end Method: E-Prescr ibed Sub s Allowed: subs OK Medic ationGen ericName : desoxime tasone Not Available Not Available Not Available desoximet asone 0.05 % topical cream APPLY A THIN FILM TOPICALL Y 2 TIMES A DAY NEEDED active Not Available Not Available No t Available prednison e 20 mg tablet TAKE 1 TABLET BY MOUTH EVERY DAY WITH FOOD OR MILK 01/17 completed Not Available Not Available Not Available betametha sone, augmented 0.05 % topical cream APPLY A THIN LAYER TO ECZEMA ON TRUNK/EX TREMITIE S 2 TIMES A DAY NEEDED. CAN USE FOR 1 TO 2 WEEKS, THEN TAKE 1 WEEK OFF. CAN REPEAT AFTER OFF WEEK. active Not Available Not Available No t Available doxycycli ne monohydra te 100 mg tablet TAKE ONE CAPSULE BY MOUTH TWICE DAILY FOR ONE MONTH. TAKE WITH FOOD AND A FULL GLASS OF WATER. 01/17 completed Not Available Not Available Not Available Prevacid 30 mg capsule,d elayed release 1 capsule by mouth 01/17 completed Medicati on ID: [id number] Du ration Value: 1 Prescri bed By Name: Maude Dubois rd, nd Name: Prevacid Send Method: E-Prescr ibed Sub s Allowed: subs OK Medic ationGen ericName : Prevacid Not Available Not Available Not Available trazodone 100 mg tablet TAKE 1 TABLET BY MOUTH EVERY DAY AT BEDTIME active Not Available Not Available No t Available doxycycli ne monohydra te 100 mg capsule TAKE 1 CAPSULE BY MOUTH TWO TIMES A DAY WITH FOOD AND WATER. (AVOID DAIRY/CA LCIUM/ TAMIN/DO N''T LAY FLAT AFTER TAKING). 01/17 completed Not Available Not Available Not Available metronida zole 0.75 % topical cream APPLY TO WHOLE FACE TWICE DAILY. 01/17 completed Not Available Not Available Not Available mupirocin 2 % topical ointment APPLY TOPICALL Y TO AFFECTED AREA TWO TIMES A DAY FOR 14 DAYS active Not Available Not Available No t Available epinephri ne 0.3 mg/0.3 mL injection , auto-inje ctor active Medicati on ID: [id number] B rand Name: epinephr ine Send Method: E-Prescr ibed Sub s Allowed: subs OK Medic ationGen ericName : epinephr ine Not Available Not Available Not Available estradiol 0.01% (0.1 mg/gram) vaginal cream 08/13 completed Medicati on ID: [id number] B rand Name: estradio l Send Method: E-Prescr ibed Sub s Allowed: subs OK Medic ationGen ericName : estradio l Not Available Not Available Not Available albuterol sulfate HFA 90 mcg/actua tion aerosol inhaler INHALE 2 PUFFS EVERY 4 HOURS NEEDED FOR WHEEZING active Not Available Not Available No t Available Sudafed 01/17 completed Medicati on ID: [id number] B rand Name: sudafed Send Method: E-Prescr ibed Sub s Allowed: subs OK Medic ationGen ericName : sudafed Not Available Not Available Not Available Zyrtec 10 mg capsule 2017 active Medicati on ID: [id number] B rand Name: Zyrtec S end Method: E-Prescr ibed Sub s Allowed: subs OK Medic ationGen ericName : Zyrtec Not Available Not Available Not Available Angely Allergy 60 mg tablet 12/13 completed Medicati on ID: [id number] Br and Name: Angely Allergy Send Method: E-Prescr ibed Sub s Allowed: subs OK Medic ationGen ericName : Angely Allergy Not Available Not Available Not Available ivermecti n 1 % topical cream APPLY ONCE DAILY TO FACE active Not Available Not Available No t Available Qvar RediHaler 80 mcg/actua tion HFA breath activated aerosol INHALE 1 PUFF BY MOUTH TWO TIMES A DAY. RINSE MOUTH AND THROAT AFTER USE. active Not Available Not Available No t Available Vitals Date Recorded Body height Body mass index (BMI) Body weight Provider Name and Address Organization Details Last Updated DateTime 01/18/2024 165.1 cm 35.9 kg/m2 61091.95 g Mary Jane Mccollum [place] - [facility] 01/18/2024 11:03:53 Social History None recorded. Functional Status None recorded. Mental Status None recorded. Family History Nothing Reported Notes:Problems with anesthes ia: Mother. Cancer: Unspecified type of cancer - mother. Ears: Hearing loss after age 20 - sister(s). Cardiovascular: Heart disease in a male, diagnosed at unknown age - father. Heart disease in a female, diagnosed at unknown age - mother. Hypertension - brother(s) and sister(s). Respiratory: Asthma - mother. Neurologic: Stroke - father. Endocrine: Diabetes, age at onset unspecified - brother(s). Medical History No medical history recorded. Gynecological HistoryNo gynecological history recorded. Obstetrics History GPAL:G 0 P 0 0 0 0 Past Encounters Encounter ID Performer Location Encounter Start Date Encounter Closed Date Diagnosis/Indication Diagnosis SNOMED-CT Code Diagnosis ICD10 Code [id number] REGINA BENITEZ MD [facility] on [address] [place] [address] 01/18/2024 10:55:51 01/18/2024 11:21:25 Bilateral temporomandibular joint pain [id number] 5851896 M26.623 Disorder of the nose 894 21513 J34.89 Disturbanc e of salivary secretion 09941585 K11.7 Health Concerns Section Related Observation LastModified by Organization Detai ls LastModified Time None Recorded Concern Status LastModified by Organization Details LastModified Time None Recorded Payers Encounter Date Sequence Insurance Name Policy Number Policy Jenkins Covered Member ID Jenkins Member ID Guarantor Name 01/18/2024 1 [facility] [id number] Aliyah Crenshaw [id number] Aliyah Crenshaw Notes Date Note Type Note Provider Name and Address Organization Details Recorded Time 01/18/2024 text/html 68 yo F presents with the following concerns:1.Some right sided ear blockage, no infection, does have TMJ, needs mouth guard. MRI 2019 with fluid in the sphenoid most recent audio 2020, will request 2. Feels on jaw line a little swelling, seems like enlarging can get jaw pain occasionally Thyroid US in October at [facility]. Stable left lower pole 2.3 cm TI-RADS Category 3 nodule. Follow-up ultrasound in 2 years is recommended per guidelines below.Interval decrease in size of right lower pole 1.0 cm TI-RADS Category 3 nodule versus pseudo-nodule. 3. Chondrodermatitis nodularis helicis, use ergonomic pillow once in awhile PV: 67-year-old female with history of Sjogren's presents today for follow-up. She has a few concerns.Number one. Hoarse voice.Number two. Thyroid nodule. Samantha's. She had a thyroid ultrasound in 2022 showing 2.2 cm her left lower pole nodule which is benign biopsy [id number].Number three. Chronic sialoadenitis. She does feel some swelling of her salivary gland that time. She followed with Dr. Godfrey. Her most recentultrasound in 2021 showed normal submandibular gland. She had a positive biopsy for Sjogren's in 2020. REGINA BENITEZ MD [address] [place] [address], [place], [address], [facility] - [facility] 01/18/2024 12:49:44 OBGyn Episode No OBEpisode recorded.
--- OUTSIDE RECORDS SUMMARY | 2024-02-25 09:00 | XMS_ITS | Continuity of Care Document ---
Author Organization [facility] Address [address] [place] [address]- Care Team Providers Care Hot Sealing Machine Operator Name Role Phone Parish HERRERA, Leonides Primary Care Physician [phone] Encounter [facility] ACCT R [id number] Date(s): 01/28/24 - 02/04/24 [facility] [address], [place] [address] Encounter Diagnosis COVID-19(Discharge Diagnosis) - 01/28/24 Acute sinusitis(Discharge Diagnosis) - 01/28/24 Attending Physician: Liat Baptiste NP Referring Physician: Leonides Lugo MD Encounter Type: Office Visit Allergies, Adverse Reactions, Alerts Substance Criticality Severity [...] Active Levaquin Night terror 13-MAY-2013 07:24:12<$> Active Other Environmental Allergy 1, 2 Active metroNIDAZOLE neuropathy Motor peripheral neuropathy Active Adhesive Bandage redness to the skin Active Latex unknown Active SARS-CoV-2 (COVID-19) mRNA-1273 vaccine 3 Moderna Vaccine Rash/Hives Active NexIUM DEPRESSION Active AcipHex confusion Active [...] virus vaccine, inactivated 12/22/13 Give n SARS-CoV-2(COVID-19)mRNA-LNP vac([id number]) 12/28/22 Recorded pneumococcal 20-valent conjugate vaccine 5 06/05/22 Given SARS-CoV-2 (COVID-19) mRNA-1273 vaccine 07/04/21 R ecorded SARS-CoV-2 (COVID-19) mRNA-1273 vaccine 01/11/21 R ecorded SARS-CoV-2 (COVID-19) mRNA-1273 vaccine 04/04/20 R ecorded SARS-CoV-2 (COVID-19) mRNA-1273 vaccine 03/07/20 R ecorded SARS-CoV-2 mRNA ([id number]-jocgb) vax 04/04/20 Recorded Influenza Virus Vaccine (oldterm) 12/06/18 Recorde d tetanus-diphtheria toxoids (Td) 6 10/24/18 Given Zoster Vaccine Live 7 02/08/15 Given tetanus/diphtheria/pertussis, acel(Tdap) 8 03/08/09 Given 1Result Comment: [02/16/2018] done at work 2Result Comment: [12/04/2016] [facility] [id number] 3Result Comment: [04/30/2016] [facility] 4Result Comment: [01/07/2015] Given by employer 5Result Comment: [facility] [id number] 6Result Comment: [facility] [id number] 7Result Comment: [02/08/2015] consent signed. 8Admin Note: done at [facility] Medications albuterol CFC free 90 mcg/inh inhalation aerosol 2, puffs, Inhalation, 4 times a day, PRN, # 18 Gm, Refills 0, Tot. Refills 0, Maintenance, 07/23/23 7:08:00 AM EDT, Aerosol, Route to Pharmacy Electronically, [id number], [facility], 164, cm, 07/21/23 11:11:00 EDT, [...] Refills, Maintenance, 10/27/23 1:31:00 PM EDT, Cream, [facility], Partial fill upon patient request [...] Gm, 0 Refills,Maintenance, 10/28/23 3:21:00 PM EDT, [facility], 14, APPLY TOPICALLY TO AFFECTED [...] 11:14:00 AM EDT, Route to Pharmacy Electronically, [facility], Partial fill upon patient request [...] comorbidity Confirmed Active Sjogrens syndrome Confirmed Active Diagnosis Diagnosis Type Effective Dates Health Status Cl inical Service Informant COVID-19 Discharge Diagnosis 01/28/24 Acute sinusitis Discharge Diagnosis 01/28/24 Vital Signs Most recent to oldest [Reference Range]: 1 Height 164 cm (01/28/24 12:58 PM) Social History Social History Type Response Tobacco Other: quit 1990. To bacco use times per day: Smoked 1 pack per week. Sex Sex Representation Female (finding) Patient Care team information Care Team Personnel Name: Patel BURNETT, Ramya Jensen Position: [facility] PCO Associate Professional Member Role: Lifetime Consulting Provider Address: [address] [place] [address] [place] [address]- XG Telecom: Name: Promise Marcum MD Position: [facility] YARDER OPERATOR Member Role: Lifetime YARDER OPERATOR Physician Address: [address] [place] [address] Food Storeroom Clerk [place], [place] [address] Telecom: Name: Jeanie Giron MD Position: [facility] YARDER OPERATOR MD Member Role: Lifetime YARDER OPERATOR Physician Address: [address] [facility] [place] [address] MJ Telecom: Name: Leonides Lugo MD Position: [facility] Physician - Primary Care Member Role: PCP Address: [address] [place] [address] 3rd Floor [place], [place] [address] Telecom: Care Team Related Persons Name: MARIAM REGAN Insurance Providers Guarantor name: MATIAS REGAN [facility] Care Information #: 1 Payer: [facility] PPO Member Number: [id number] Policy Number: NA Group Number: [id number] Health Plan Information #: 2 Payer: [facility] PPO Member Number: [id number] Policy Number: NA Group Number: [id number]
--- OUTSIDE RECORDS SUMMARY | 2024-02-25 09:00 | XMS_ITS | Continuity of Care Document ---
Author Organization [facility] Adult Address [address] [place] [address]- Care Team Providers Care Warp Doffer Name Role Phone Leonides Lugo MD Primary Care Physician Encounter [facility] Date(s): 01/18/24 - 01/25/[address] [address]- Encounter Diagnosis Knee mass(Discharge Diagnosis) - 01/18/24 Attending Physician: Leonides Lugo MD Encounter Type: Office [...] virus vaccine, inactivated 12/22/13 Give n SARS-CoV-2(COVID-19)mRNA-LNP vac([id number]) 12/28/22 Recorded pneumococcal 20-valent conjugate vaccine 5 06/05/22 Given SARS-CoV-2 (COVID-19) mRNA-1273 vaccine 07/04/21 R ecorded SARS-CoV-2 (COVID-19) mRNA-1273 vaccine 01/11/21 R ecorded SARS-CoV-2 (COVID-19) mRNA-1273 vaccine 04/04/20 R ecorded SARS-CoV-2 (COVID-19) mRNA-1273 vaccine 03/07/20 R ecorded SARS-CoV-2 mRNA (hhaoqfr-cibk-abniz) vax 04/04/20 Recorded Influenza Virus Vaccine (oldterm) 12/06/18 Recorde d tetanus-diphtheria toxoids (Td) 6 10/24/18 Given Zoster Vaccine Live 7 02/08/15 Given tetanus/diphtheria/pertussis, acel(Tdap) 8 03/08/09 Given 1Result Comment: [02/16/2018] done at work 2Result Comment: [12/04/2016] [facility] [id number] 3Result Comment: [04/30/2016] [facility] 4Result Comment: [01/07/2015] Given by employer 5Result Comment: [facility] [id number] 6Result Comment: [facility] [id number] 7Result Comment: [02/08/2015] consent signed. 8Admin Note: done at [facility] services Medications albuterol CFC free 90 mcg/inh inhalation aerosol 2, puffs, Inhalation, 4 times a day, PRN, # 18 Gm, Refills 0, Tot. Refills 0, Maintenance, 07/23/23 7:08:00 AM EDT, Aerosol, Route to Pharmacy Electronically, [id number], [facility], 164, cm, 07/21/23 11:11:00 EDT, Height, [...] Refills, Maintenance, 10/27/23 1:31:00 PM EDT, Cream, [facility], Partial fill upon patient request if [...] Gm, 0 Refills,Maintenance, 10/28/23 3:21:00 PM EDT, [facility], 14, APPLY TOPICALLY TO [...] 11:14:00 AM EDT, Route to Pharmacy Electronically, [facility], Partial fill upon patient [...] Diagnosis Diagnosis Type Effective Dates Health Status Clini yang Service Informant Knee mass Discharge Diagnosis 01/18/24 Vital Signs Most recent to oldest [Reference Range]: 1 Height 164 cm (01/18/24 3:03 PM) Weight 101 kg (01/18/24 3:03 PM) Oxygen Saturation [94-100 %] 97 % (01/18/24 3:03 PM) Pulse Rate [55-90 bpm] 79 bpm (01/18/24 3:03 PM) Body Mass Index [18.5-24.99 kg/m2] 37.55 kg/m2 *>HHI* (01/18/24 3:03 PM) Blood Pressure [90-138/55-84 mm Hg] 105/ 70mm Hg (01/18/24 3:03 PM) Temperature [96.8-100.4 DegF] 99.1 DegF (01/18/24 3:03 PM) Mode of Delivery (Oxygen) Room air (01/18/24 3:03 PM) Blood pressure sites Arm, left (01/18/24 3:03 PM) Temperature Route Oral (01/18/24 3:03 PM) Weight Obtained Via Standing scale (01/18/24 3:03 PM) Social History Social History Type Response Tobacco Other: quit 1990. To bacco use times per day: Smoked 1 pack per week. Sex Sex Representation Female (finding) Note * Mikaela Raymundo: PERFORM Event Display: Patient Education/Instruction Authored Date: Ambulatory Adult Visit Summary [facility] [address] [place] [address] Name: MATIAS REGAN : 1955?? Visit: 01/18/2024 14:43?? Ambulatory Visit Instructions ?? Your Care Team Primary Care Provider Leonides Lugo MD? This Visit Provider Leonides Lugo MD Vitals Signs Temperature: 99.1 DegF Height: 164 cm Pulse Rate: 79 bpm Weight: 101 kg Systolic Blood Pressure: 105 mm Hg Body Mass Index:??37.55 kg/m2??Critical Diastolic Blood Pressure: 70 mm Hg Body surface area: 2.15 Oxygen Saturation: 97 % ?? What to do next Scheduled Follow-Up Appointments 2023 8:30 AM EST ?? With: Lee Ann BURNETT, Rossy Mancilla Where: [facility] [address] [place] [address]- Status: Pending Wednesday 8:30 AM EST ?? With: Terry Rodriguez Where: [facility] [address] [place] [address]- Status: Pending Wednesday 10:40 AM EST ?? With: Erasmo HERRERA, Foreign Aguilar Where: [facility] [address] [facility] [address] [place] [address]- Status: Pending Wednesday 1:00 PM EST ?? With: Pepper Gupta Where: [facility] Status: Pending Wednesday 9:00 AM EDT ?? Where: [facility] [address] [place] [address]- Status: Pending Medications The list below reflects the information in our records and provided by you today along with any changes made during this visit. Please continue your medications until treatment is completed or stopped by your provider. If this is different from the information you have or there are other questions,please contact the prescribing provider. What How Much When Instructions Unchanged Albuterol (albuterol CFC free 90 mcg/ inh inhalation aerosol) 2 puff(s) Inhalation 4 times a day as needed for as needed for wheezing Unchanged Betamethasone Topical (betamethasone topical dipropionate, augmented 0.05% cream) 50 Gm, 0 Refill(s), APPLY A THIN LAYER TO ECZEMA ON TRUNK/ EXTREMITIES 2 TIMES A DAY NEEDED. CANUSE FOR 1 TO 2 WEEKS, THEN TAKE 1 WEEK OFF. CAN REPEAT AFTER OFF WEEK. ?? Unchanged Cetirizine (ZyrTEC Hives 1 mg/ mL oral syrup) 5 Milliliter Oral Daily in the morning Unchanged Cholecalciferol (Vitamin D3 Gummies) Oral Daily Unchanged Desoximetasone Topical (desoximetasone 0.05% topical cream) See instructions Apply a thin film topically 2 times a day, As needed for Other ?? Unchanged Multivitamin 1 tab Oral Daily in the morning Unchanged Mupirocin Topical (mupirocin 2% topical ointment) See instructions APPLY TOPICALLY TO AFFECTED AREA TWO TIMES A DAY FOR 14 DAYS ?? Unchanged Trazodone (traZODone 100 mg oral tablet) 1 tab(s) Oral Daily at Bedtime Medications and Immunizations Administered Medications Given During Visit No medications given during this visit.?? Allergies (NKA means No Known Allergies) AcipHex??(confusion) Adhesive Bandage??(redness to the skin) Betadine??(itch) Keflex??(Red face 13-MAY-2013 07:18:10<$>) Latex??(unknown) Levaquin??(Night terror 13-MAY-2013 07:24:12<$>) NexIUM??(DEPRESSION) Other Environmental Allergy SARS-CoV-2 (COVID-19) mRNA-1273 vaccine??(Moderna Vaccine, Rash/Hives) Septra??(Red face 13-MAY-2013 07:18:10<$>) azithromycin??(Vomiting) clotrimazole??(hives) codeine??(crawling feeling, Itching of skin) doxycycline??(red face, Headache) erythromycin??(Hives) metroNIDAZOLE??(neuropathy, Motor peripheral neuropathy) omeprazole??(heart palpitations) sulfa drugs??(Hives) tetracycline??(red face, Headache) Common Emergency Awareness Tips IS IT A STROKE? Act FAST and Check for these signs: FACE Does the face look uneven? ARM Does one arm drift down? SPEECH Does their speech sound strange? TIME Call at any sign of stroke ?? Heart Attack Signs Chest discomfort: Most heart attacks involve discomfort in the center of the chest and lasts more than a few minutes, or goes away and comes back. It can feel like uncomfortable pressure, squeezing, fullness or pain. Discomfort in upper body: Symptoms can include pain or discomfort in one or both arms, back, neck, jaw or stomach. Shortness of breath: With or without discomfort. Other signs: Breaking out in a cold sweat, nausea, or lightheaded. Remember, MINUTES DO MATTER. If you experience any of these heart attack warning signs, call to get immediate medical attention! ?? Smoking can increase your chances of developing chronic health problems and can cause harmful effects to other family members in your house. If you smoke, you are strongly encouraged to quit. Please call [facility] at [phone] or [phone] ([phone]) or log in to [email or web address] for referrals to smoking cessation programs. ?? The National Suicide Prevention Hotline is available 28/09 if you or someone you know needs to find a reason to keep living. By calling 9-394-799-KaritKarma (6451) you'll be connected to a skilled, trained counselor at a crisis center in your area. [facility] You can view and manage your care through the patient portal or by using a health care yeni of your choosing. [employer] is a website that allows you to securely view your medical information including your hospital discharge summary, office visit summaries, medications and follow-up visits. You can also request appointments, renew medications, and request access to your medical information using a health care yeni of your choosing, or just ask a question. You can enroll at [email or web address] or register during your next office visit. [facility], in keeping with [facility] guidance, no longer requires face masks for staff, patientsor visitors in most situations. Similiar to time spent indoors at other locations, there is the chance that you were exposed to repiratory viruses during your time with us (such as flu or COVID-19). If you develop symptoms concerning for a viral respiratory infection, please seek testing (and treatment if indicated) from your medical provider or home test kit. ?? Disclaimer: The information provided is of a general nature and is intended to be used in conjunction with the recommendations and advice of your health care practitioner. Every effort has been made to ensure that the information provided is accurate and complete at the time it is provided to you however, as your needs change, or, as new information becomes available, different or additional instructions may be required. ?? If you have questions, please consult with your primary care provider or pharmacist, as appropriate. This information is not intended to serve as substitution for assessment and evaluation by a qualified health care provider. If you do not have a primary care provider, you may find a [facility] provider by calling [facility] at [phone]. Patient Care team information Care Team Personnel Name: Patel BURNETT, Ramya Jensen Position: [facility] PCO Associate Professional Member Role: Lifetime Consulting Provider Address: [address] [place] [address]- [place] Telecom: Name: Promise Marcum MD Position: [facility] METER MECHANIC MD Member Role: Lifetime METER MECHANIC Physician Address: [address] [place] [address]- Telecom: Name: Mack HERRERA, Jeanie Garcia Position: [facility] METER MECHANIC MD Member Role: Lifetime METER MECHANIC Physician Address: [address] [place] [address]- [place] Telecom: Name: Leonides Lugo MD Position: [facility] Physician - Primary Care Member Role: PCP Address: [address] [place] [address]- XN Telecom: Care Team Related Persons Name: MARIAM REGAN Insurance Providers Guarantor name: MATIAS REGAN Health Plan Information #: 1 Payer: [employer] [facility] PPO Member Number: [id number] Policy Number: NA Group Number: [id number] Health Plan Information #: 2 Payer: [employer] [facility] PPO Member Number: [id number] Policy Number: NA Group Number: [id number]
--- OUTSIDE RECORDS SUMMARY | 2024-02-25 09:00 | XMS_ITS | Continuity of Care Document ---
Author Organization [facility] Address [address] [place] [address]- Care Team Providers Care Fitness Assistant Name Role Phone Leonides Lugo MD Primary Care Physician Encounter [facility] Date(s): 01/10/24 - 02/09/24 [facility] [address] [place], [place] [address] Attending Physician: Gunnar Melgoza Admitting Physician: Gunnar Melgoza Referring Physician: Admtr ArRosmery Encounter Type: Triage Allergies, Adverse Reactions, Alerts [...] virus vaccine, inactivated 12/22/13 Give n SARS-CoV-2(COVID-19)mRNA-LNP vac([id number]) 12/28/22 Recorded pneumococcal 20-valent conjugate vaccine 5 06/05/22 Given SARS-CoV-2 (COVID-19) mRNA-1273 vaccine 07/04/21 R ecorded SARS-CoV-2 (COVID-19) mRNA-1273 vaccine 01/11/21 R ecorded SARS-CoV-2 (COVID-19) mRNA-1273 vaccine 04/04/20 R ecorded SARS-CoV-2 (COVID-19) mRNA-1273 vaccine 03/07/20 R ecorded SARS-CoV-2 mRNA ([id number]-tbct-vzfog) vax 04/04/20 Recorded Influenza Virus Vaccine (oldterm) 12/06/18 Recorde d tetanus-diphtheria toxoids (Td) 6 10/24/18 Given Zoster Vaccine Live 7 02/08/15 Given tetanus/diphtheria/pertussis, acel(Tdap) 8 03/08/09 Given 1Result Comment: [02/16/2018] done at work 2Result Comment: [12/04/2016] [facility] [id number] 3Result Comment: [04/30/2016] [facility] 4Result Comment: [01/07/2015] Given by employer 5Result Comment: [facility] [id number] 6Result Comment: [facility] [id number] 7Result Comment: [02/08/2015] consent signed. 8Admin Note: done at [facility] services Medications albuterol CFC free 90 mcg/inh inhalation aerosol 2, puffs, Inhalation, 4 times a day, PRN, # 18 Gm, Refills 0, Tot. Refills 0, Maintenance, 07/23/23 7:08:00 AM EDT, Aerosol, Route to Pharmacy Electronically, [id number], [facility], 164, cm, 07/21/23 11:11:00 EDT, [...] Refills, Maintenance, 10/27/23 1:31:00 PM EDT, Cream, [facility], Partial fill upon patient request [...] Gm, 0 Refills,Maintenance, 10/28/23 3:21:00 PM EDT, [facility], 14, APPLY TOPICALLY TO [...] 11:14:00 AM EDT, Route to Pharmacy Electronically, [facility] [address] [facility], Partial fill upon patient request [...] per week. Sex Sex Representation Female (finding) Laboratory * Event Display: Non BH Lab Results Authored Date: * Event Display: Non BH Lab Results Authored Date: * Event Display: Non BH Lab Results Authored Date: * Event Display: Non BH Lab Results Authored Date: MG Breast Views * Event Display: MM Mammogram, Non- BH Authored Date: Radiology * Event Display: Non BH Radiology Results Authored Date: * Event Display: Non BH Radiology Results Authored Date: * Event Display: Non BH Radiology Results Authored Date: * Event Display: Non BH Radiology Results Authored Date: * Event Display: Non BH Radiology Results Authored Date: * Event Display: Non BH Radiology Results Authored Date: Patient Care team information Care Team Personnel Name: Patel BURNETT, Ramya Jensen Position: [facility] PCO Associate Professional Member Role: Lifetime Consulting Provider Address: [address] [place] [address]- [place] Telecom: Name: Promise Marcum MD Position: [facility] MOUNTED POLICE OFFICER Member Role: Lifetime MOUNTED POLICE OFFICER Physician Address: [address] [place] [address] [facility] [place] [address]- Telecom: Name: Jeanie Giron MD Position: [facility] MOUNTED POLICE OFFICER MD Member Role: Lifetime MOUNTED POLICE OFFICER Physician Address: [address] [place] [address] [facility] [place] [address]- [place] Telecom: Name: Leonides Lugo MD Position: [facility] Physician - Primary Care Member Role: PCP Address: [address] [place] [address]- [place] Telecom: Care Team Related Persons Name: MARIAM REGAN Insurance Providers Guarantor name: MATIAS REGAN Health Plan Information #: 1 Payer: [employer] [facility] PPO Member Number: NA Policy Number: NA Group Number: NA
--- OUTSIDE RECORDS SUMMARY | 2024-02-25 09:00 | XMS_ITS ---
Author Organization [facility] Address [address] [place] [address] Care Team Providers Care Rainbow [employer] Farm Manager Name Role Phone Parish HERRERA, [facility] Primary Care Provider Kyleigh Jerry Strickland Unavailable [phone] Allergies Allergen (clinical drug ingredient) Drug/Non Drug Allergy documented on EMR Reaction Allergy Type Onset Date Status sulfamethoxazole / trimethoprim Bactrim hives Drug Allergy Active sucralfate Carafate Unknown Drug Allergy Active clotrimazole Clotrimazole Unknown Drug Allergy A ctive erythromycin Erythromycin hives Drug Allergy A ctive Keflex Unknown Drug Allergy Active Levaquin Unknown Drug Allergy Active tetracycline Tetracycline HCl Unknown Drug Allergy Active codeine Codeine itchy Drug Allergy Active REASON FOR VISIT Heel pain Medications Medication SIG (Take, Route, Fr equency, Duration) Notes Start Date End Date Status Tylenol 325 MG 1 tablet as needed O rally every 6 hrs Not-Taking Benadryl 25 MG 1 capsule as needed Orally every 6 hrs Not-Taking Apple Cider Vinegar Not-Taking Turmeric Not-Taking Lutein Not-Taking Betamethasone prn Active ZyrTEC 1 tsp Active Soolantra Active Multivitamin Active Mupirocin Active Magnesium Active Probiotic Active Social History Tobacco Use: Social History Observation Description Date Details (start date - stop date) Former Smoker NA - NA Tobacco Use/Smoking Question Answer Notes Are you a: former smoker When did you start smoking? 15 years of age When did you stop smoking? 1990 Alcohol Screen Question Answer Notes Did you have a drink containing alcohol in the p ast year? No Points 0 Interpretation Negative Tobacco use other than smoking: Question Answer Notes Are you an other tobacco user? No Problems Problem Type SNOMED Code ICD Code Onset Dates Problem Status W/U Status Risk Notes Problem Interstitial myositis (98402745) Interstitial myositis of right foot (M60.171) Active confirmed Vital Signs Height 5ft 5in in 10/14/2022 Weight 216 lbs 10/14/2022 BMI 35.94 kg/m2 10/14/2022 Encounters Encounter Location Date Provider Diagnosis [facility] [place] [address] [address] 10/14/2022 Jerry Murillo Pain in right foot M79.671 ; Plantar fasciitis of right foot M72.2 ; Calcaneal spur, right foot M77.31 ; Interstitial myositis of right foot M60.171 and Bursitis of right foot M77.51 Assessments Encounter Date Diagnosis (ICD Code) Assessment Notes Treatment Notes Treatment Clinical Notes Section Notes 10/14/2022 Pain in right foot (ICD-10 - M79.671) 10/14/2022 Plantar fasciitis of right foot (ICD-10 - M72.2) Dx New problem, Prognosis Uncertain (4) Patient Educated with: HEEL CORD STRETCHES.pdf (HEEL CORD STRETCHES.pdf) Patient Educated with: RICE THERAPY.pdf (RICE THERAPY.pdf) 10/14/2022 Calcaneal spur, right foot (ICD-10 - M77.31) 10/14/2022 Interstitial myositis of right foot (ICD-10 - M60.171) 10/14/2022 Bursitis of right foot (ICD-10 - M77.51) Plan Of Treatment Treatment Notes Assessment Notes Plantar fasciitis of right foot Patient Educated with: HEEL CORD STRETCHES.pdf (HEEL CORD STRETCHES.pdf) Patient Educated with: RICE THERAPY.pdf (RICE THERAPY.pdf) Pending Test Test Name Order Date X ray : Foot, right 3V 10/14/2022 Next Appt Details Follow Up: prn, Reason: Progress Notes * Aliyah REGAN ADOB:[birth year] (66 yo F)Acc No.[id number]:10/14/2022 Progress Note Patient:?Aliyah Regan A Provider:?Jerry Murillo DPM :1955???Age:66 Y???Sex:Female D ate:10/14/2022 Address:[address] [place], [place] [id number] Pcp:Leonides uLgo MD Subjective: * Chief Complaints: * ???Heel pain * HPI: ???Heel pain:?Location:?Proximal plantar aspect of Heel, RIGHT.?Duration:?several days.?Course:?worse.?Aggrevated:?standing, walking, walking first thing in the morning/after rest.?Treatments:?rest.? * ROS:?General/Constitutional:?Nausea?denies.?Vomiting?denies.?Hunger Thirst?denies.?Loss appetite?denies.?Chills?denies.?Fatigue?denies.?Fever?denies.?Night Sweats?denies.?Unexplained weight loss?denies.?Unexplained weight gain?denies.?HEENTM:?Dentures?denies.?Dizziness?admits.?Glasses/contacts?admits.?Retinopathy?de nies.?Blurred/double vision?denies.?TMJ?admits.?Discharge/drainage?denies.?Implants?denies.?Sore throat?denies.?Dental implants?denies.?Hard of hearing ?denies.?Difficulty chewing/swallowing/speaking?denies.?Nose bleeds?denies.?Sore mouth?denies.?Respiratory:?On Oxygen?denies.?Pneumonia/pleurisy?denies.?Bronchitis?denies.?Emphysema?denies.?C oughing?denies.?Cough blood?denies.?Shortness of breath?admits.?Wheezing?admits.?Cardiovascular:?Pacemaker?denies.?MVP?denies.?WPW?denies.?CHF?denies.?Heart attack?denies.?Septal defect?denies.?Rapid beat?denies.?Chest pain ?denies.?Atrial Fib.?denies.?Murmur/Palpitations?denies.?Gastrointestinal:?Hemorrhoids?denies.?Stomach/Abdominal pain?admits.?Dark blood stool?denies.?Irritable bowel ?denies.?Constipation?admits.?Diarrhea?admits.?Hematology:?Swelling?denies.?Clots?denies.?Varicose Veins?denies.?Bruising?denies.?Bleeding problem?denies.?Genitourinary:?Blood urine?denies.?Frequent/Painfu/urination/bladder control?denies.?Kidney stones?denies.?Infection (UTI)?denies.?Nephropathy?denies.?sex trans dis (STD)?denies.?Prostate?denies.?Musculoskeletal:?Hammertoes?denies.?Bunions?denies.?Back Pain?admits.?Muscle Cramps/ Resting?admits.?Muscle cramps / walking?admits.?Generalized aches and pains?admits.?Weakness?denies.?Integ.:?Chin?denies.?Scars?denies.?Corns/calluses?admits.?Ingrown nails?denies.?Painful nails?denies.?Open Sores?denies.?Rashes?admits.?Neurologic:?Difficulty sleeping?denies.?Brain disorder?denies.?Numbness?admits.?Balance trouble?denies.?Confusion?denies.?Fainting/blackouts?denies.?Tingling?admits.?Tr emors?denies.? * Medical History:? * Surgical History:?tonsillect fatuma and adenoidectomy 1967tubal ligation gall bladder 2010vaginal ablation cystedenoma 2013Thyroglossal cys 1957hysterectomy 07/26/2018bladder ladder 2020 * Hospitalization/Major Diagno stic Procedure:?No Hospitalization History. * Family History:?Mother: rufino amaral, foot problems, heart attack, poor circulation, stroke, diagnosed with Family history of arthritis, Other malignant neoplasm of unspecified site.?Father: , arthritis, cancer, diabetes, diagnosed with Family history of arthritis, Unspecified cerebral artery occlusion with cerebral infarction.?Maternal aunt: kidney/liver disease.?Siblings: brother heart attack, sisiter cancer, diagnosed with Other malignant neoplasm of unspecified site, Unspecified essential hypertension, Unspecified heart disease.?Paternal Grand Father: diagnosed with Other malignant neoplasm of unspecified site.?Maternal Grand Mother: diagnosed with Diabetic - NIDDM.? * Social History:?Tobacco Use:?Tobacco Use/Smoking?Are you a:?former smoker ?When did you start smoking??15 years of age ?When did you stop smoking??1990 ?Tobacco use other than smoking?Are you an other tobacco user??No ???Drugs/Alcohol:?Drugs?Have you used drugs other than those for medical reasons in the past 12 months??No ?Alcohol Screen?Did you have a drink containing alcohol in the past year??No ?Points?0 ?Interpretation?Negative ???Miscellaneous:?Caffeine: yes, soda. ?Children: yes. ?no Exercise. ?Marital status: . 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 * Medications:?TakingMagnesium Probiotic ZyrTEC 1 tsp Betamethasone prnMultivitamin Soolantra Mupirocin Taking Magnesium Taking Probiotic Taking ZyrTEC 1 tsp Taking Betamethasone prnTaking Multivitamin Taking Soolantra Taking Mupirocin Not-Taking/PRNApple Cider Vinegar Lutein Turmeric Benadryl 25 MG Capsule 1 capsule as needed Orally every 6 hrsTylenol 325 MG Tablet 1 tablet as needed Orally every 6 hrsMedication List reviewed and reconciled with the patientNot-Taking/PRN Apple Cider Vinegar Not-Taking/PRN Lutein Not-Taking/PRN Turmeric Not-Taking/PRN Benadryl 25 MG Capsule 1 capsule as needed Orally every 6 hrsNot-Taking/PRN Tylenol 325 MG Tablet 1 tablet as needed Orally every 6 hrsMedication List reviewed and reconciled with the patient * Allergies:?Erythromycin: hiv esLevaquinTetracycline HClCarafateClotrimazoleBactrim: hivesCodeine: itchyKeflexyes[Allergies Verified] Objective: * Vitals:?Ht: 5ft 5in, Wt:216, BMI:35.94, Shoe size: 8, Ht-cm: 165.1 cm, Wt-k.98 kg. * Examination: ???Heel Pain: ?INSPECTION:? Pain on Palpation to Plantar Fascia med. and central bands, intrinsic musc., infra-calcaneal bursa, and med calc tubercle , RIGHT foot, No pain: posterior/superior heel, achilles bursa/tendon, sinus tarsi, peroneals, or with lateral heel compression; no limited STJ ROM, calor, or ecchymosis.?X-Rays: ?Views:? 3 views of Foot, LAT, LO, MO, RIGHT.?Findings:? normal bone and soft tissue density consistent for patients age and sex, navicular/cuneiform plantar subluxation with anterior cyma line, positive infra-calcaneal exostosis.?Fracture:?Negative fractures identified.?Orthopedic: ?MUSCLE STRENGTH:?5/5 all groups in a symmetrical fashion , B/L.?GAIT ABNORMALITY:?antalgic.?FOOT MORPHOLOGY:?Pes Cavus structure, Decreased Ankle joint dorsiflexion ROM, knee extended.?Neurological: ?SENSORY:?Neurological exam reveals intact sensorium, pain sensation normal, vibration sensation intact, pinprick sensation is normal in the lower extremities, Pt denies, anesthesia, burning, paresthesia, tingling, B/L.?TINEL'S COMPRESSION:?Negative tarsal tunnel, lavonne pedis, and medial calcaneal nerves.?DEEP TENDON REFLEXES:?Achilles, 2/4, B/L.?General Examination: ?GENERAL APPEARANCE:?Reveals a pleasant, alert, well-nourished, well- developed, well hydrated individual, who demonstrates proper attention to hygiene/body habitus, and is in no acute distress, Pt serves as own?historian for office visit today.?ORIENTED:?person, place, and time.?Vascular: ?DP PULSES:?3/4, B/L.?PT PULSES:?3/4, B/L.?CAPILLARY FILL TIME:?immediate, all digits, B/L.?SKIN TEMPERTURE GRADIENT OF THE LOWER EXTERMITIES:?warm to cool, proximal to distal, B/L.?HAIR GROWTH/TEXTURE/ELASTICITY/TURGOR:?normal, B/L.?PIGMENTATION:?normal, B/L.?EDEMA:?absent, B/L.?Dermatologic: ?SKIN FINDINGS:?Skin exam reveals normal texture, elasticity, and turgor. There are no masses. The interspaces are clear.? Assessment: * Assessment: 1.?Pain in right foot - M79. 671?2.?Plantar fasciitis of right foot - M72.2, Acute problem, Complicated w/ Multiple Tx Options(4), Dx New problem, Prognosis Uncertain (4)?3.?Calcaneal spur, right foot - M77.31?4.?Interstitial myositis of right foot - M60.171?5.?Bursitis of right foot - M77.51? Plan: * Treatment: 2.?Plantar fasciitis of righ t foot? Notes: Patient Educated with: HEEL CORD STRETCHES.pdf (HEEL CORD STRETCHES.pdf) Patient Educated with: RICE THERAPY.pdf (RICE THERAPY.pdf).?? * Procedure Codes:?93952 X-RAY EXAM OF RIGHT FOOT 3V, Modifiers: 26 , RT * Preventive Medicine:? ??Counseling:?Discussion:?-14: Office or other outpatient visit for the evaluation and management of an established patient, which required a medically appropriate history and/or examination and MODERATE level of DECISION MAKING for: 1 OR MORE CHRONIC PROBLEM(S) THATS WORSENING, 2 STABLE CHRONIC PROBLEMS, A NEWLY DIAGNOSED PROBLEM WITH UNCERTAIN PROGNOSIS, AN ACUTE COMPLICATED INJURY WITH MULTIPLE TREATMENT OPTIONS, OR AN ACUTE PROBLEM WITH ACCOMPANYING SYSTEMIC SYMPTOMS, THAT POSE(S) A MODERATE RISK OF MORBIDITY. THIS CONDITION MAY ALSO INCLUDE RX DRUG MANAGEMENT, OR A DECISON FOR MINOR SURGERY. The visit on the day of the encounter encompassed interpreting the data and educating the patient as to the nature of their condition, treatment options available according to their individual PMH, meds, allergies, and overall health/living conditions, as well as any potential risks or complications that may occur from a failure to adhere to, and participate in, the recommended course of therapy. The discussion included a complete verbal, and/or written explanation of the examination results, any x-rays taken, the proposed diagnosis, and outline of the treatment plan. A schedule for future care needs was also explained. The patient verbalized an understanding of the instructions at this time and agreed to be an active participant in their treatment. If the patient should think of any questions or concerns after the visit, I have encouraged the patient to call the office.?Heel pain:?FASCIITIS: I explained to the patient the possible etiologies of Plantar Fasciitis including foot type/shoegear/activity level/exercise routine and the risks/benefits of all the different treatment options for heel pain including: No treatment at all, Rest, Ice, NSAIDs(only if well tolerated after meals), New/supportive Shoegear, Strappings and Tapings, Stretching exercises, Deep Tissue Massage, Heel cups/cushions, Arch support/shoe inserts, Custom orthoses, Topical analgesics including Aspercream/Voltaren gel, Night splint AFO for am stiffness, Cortisone injection therapy, Cast boot with crutches/cane/or walker for assisted ambulation, Physical Therapy, EPAT/ESWT, Interfil injection therapy, as well as surgical Barney/Endoscopic Fasciitomy surgical procedures if needed. Recommendations were made to limit barefoot walking, eliminate wearing nonsupportive shoegear (i.e. flip-flops or sandals, or a shoe with an easily bendable, foldable, or twistable sole) and wear shoegear with a good solid sole, a supportive arch, and plenty of room for an insert/orthotic if necessary. If wearing sandals was required by the patient, we recommended orthopedic sandals such as Orthoheel or Birkenstock even while in the home. If the patient wore heels in the past, we recommended they continue, but eliminate the use of flats. The advantages and disadvantages of each option were discussed and the patients questions re: types of shoegear, custom vs prefabricated inserts, activity level, PO vs Topical medications (and their respective potential complications/drug interactions/side effects), and consistency in home treatment regimens for optimal success were answered to their satisfaction. Literature detailing plantar fasciitis and the various treatment options were dispensed and reviewed.?Orthotics:?I explained to the patient the benefits of OT use. I explained that orthoses are medically necessary to decrease the foot pain through proper mechanical control, support of their foot , decrease stretch/strain on the plantar fascia , Prefabricated orthothes were dispensed. The inserts were comfortably fit to the patients feet in both weight-bearing and non-weight bearing attitudes. 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 They were asked to call the office if any signs of irritation were noted such as redness, blistering or callous formation. Instuctions were given for their usage and proper break- in/wear/care.?P.R.I.C.E.:?The patient was counseled on the use of P.R.I.C.E. and NSAIDS (if well tolerated) to aid in the recovery from their painful condition.?Shoe Gear Counseling:?The patient and I reviewed the types of shoes they should be wearing. My recommendation included obtaining a well-fitted shoe with a good supportive, non-foldable nor twistable sole, plenty of toe/room for the forefoot, and proper arch support. Based on todays examination, I recommended the patient look for new shoes, by having their feet professionally measured. We discussed that generally the best time of the day for a shoe fitting is the afternoon. Different shoes types and brands to best match the patients occupation and vocation were discussed. Specific brand selection will be up to the patient, their individual foot condition/deformities, and fit. The patient and I reviewed the standard new shoe break in period by wearing them for a few hours a day while checking for redness or sores as wear time is increased. The patient verbally confirmed to understanding the information discussed.?Stretching Exercises:?Stretching and deep tissue massage exercises for the patients injury/diagnosis were discussed and demonstrated, handouts were dispensed.? * Follow Up:?prn * Images: * Sign off status: Completed true * Provider:?Jerry Murillo DPM Date:?2022 Generated for Oli blanco/Gurwinder/Celso on:?02/25/2024 09:00 AM EST History and Physical Notes * HPI (History of Present Illness) Category Sub-Category Detail Notes Category Not es Heel pain Duration: several days Location: Proximal plantar asp ect of Heel, RIGHT Aggravated: standing, walking, w alking first thing in the morning/after rest Course: worse Treatments: rest Examination Category Sub-Category Detail Notes Category Not es Neurological SENSORY: Neurological exa m reveals intact sensorium, pain sensation normal, vibration sensation intact, pinprick sensation is normal in the lower extremities, Pt denies, anesthesia, burning, paresthesia, tingling, B/L TINEL'S COMPRESSION: Negative tarsal flakita yoli, lavonne pedis, and medial calcaneal nerves DEEP TENDON REFLEXES: Achilles, 2/4, B/L Dermatologic SKIN FINDINGS: Skin exam reveal s normal texture, elasticity, and turgor. There are no masses. The interspaces are clear Orthopedic GAIT ABNORMALITY: antalgic FOOT MORPHOLOGY: Pes Cavus structure, Decreased Ankle joint dorsiflexion ROM, knee extended MUSCLE STRENGTH: 5/5 all groups in a symmetrical fashion , B/L General Examination GENERAL APPEARANCE: Reveals a pleasant, alert, well- nourished, well-developed, well hydrated individual, who demonstrates proper attention to hygiene/body habitus, and is in no acute distress, Pt serves as own historian for office visit today ORIENTED: person, place, and t casi Vascular DP PULSES (B): 3, B/L PT PULSES (B): 3/4, B/L CAPILLARY FILL TIME: immediate, all digi ts, B/L TEMPERTURE GRADIENT (C): warm to cool, p roximal to distal, B/L TROPHIC CONDITION-TEXTURE/ELASTICITY/TURGOR/HAIR GROWTH (B): normal, B/L EDEMA (C): absent, B/L PIGMENTATION: normal, B/L X-Rays - IMAGING REPORT Findings: normal b one and soft tissue density consistent for patients age and sex, navicular/cuneiform plantar subluxation with anterior cyma line, positive infra-calcaneal exostosis Fracture: Negative fractures i dentified Views: 3 views of Foot, LAT , LO, MO, RIGHT Heel Pain INSPECTION: Pain on Palpatio n to Plantar Fascia med. and central bands, intrinsic musc., infra-calcaneal bursa, and med calc tubercle , RIGHT foot, No pain: posterior/superior heel, achilles bursa/tendon, sinus tarsi, peroneals, or with lateral heel compression; no limited STJ ROM, calor, or ecchymosis
--- OUTSIDE RECORDS SUMMARY | 2024-02-25 09:00 | XMS_ITS | Continuity of Care Document ---
Author Organization [facility] Address [address] [place] [address]- Care Team Providers Care Staff Anesthetist Name Role Phone Parish HERRERA, Mikejoe Primary Care Physician [phone] Encounter [facility] Date(s): 01/18/24 - 02/17/[address] [address]- Attending Physician: Gunnar Melgoza Admitting Physician: AdmGunnar oro Referring Physician: Admtr Ar8 Encounter Type: Triage Allergies, Adverse Reactions, Alerts Substance Criticality Severity Reaction Reaction Severity Status codeine crawling feelin g Itching of skin Active doxycycline red face Headache Active tetracycline red face Headache Active erythromycin Hives Active azithromycin Vomiting Active omeprazole heart palpitations Active clotrimazole hives Active sulfa drugs Hives Active Keflex Red face 07:18:10<$> Active Septra [...] virus vaccine, inactivated 12/22/13 Give n SARS-CoV-2(COVID-19)mRNA-LNP vac([id number]) 12/28/22 Recorded pneumococcal 20-valent conjugate vaccine 5 06/05/22 Given SARS-CoV-2 (COVID-19) mRNA-1273 vaccine 07/04/21 R ecorded SARS-CoV-2 (COVID-19) mRNA-1273 vaccine 01/11/21 R ecorded SARS-CoV-2 (COVID-19) mRNA-1273 vaccine 04/04/20 R ecorded SARS-CoV-2 (COVID-19) mRNA-1273 vaccine 03/07/20 R ecorded SARS-CoV-2 mRNA ([id number]) vax 04/04/20 Recorded Influenza Virus Vaccine (oldterm) 12/06/18 Recorde d tetanus-diphtheria toxoids (Td) 6 10/24/18 Given Zoster Vaccine Live 7 02/08/15 Given tetanus/diphtheria/pertussis, acel(Tdap) 8 03/08/09 Given 1Result Comment: [02/16/2018] done at work 2Result Comment: [12/04/2016] [facility] [id number] 3Result Comment: [04/30/2016] [facility] 4Result Comment: [01/07/2015] Given by employer 5Result Comment: [facility] [id number] 6Result Comment: [facility] [phone] 7Result Comment: [02/08/2015] consent signed. 8Admin Note: done at [facility] services Medications albuterol CFC free 90 mcg/inh inhalation aerosol 2, puffs, Inhalation, 4 times a day, PRN, # 18 Gm, Refills 0, Tot. Refills 0, Maintenance, 07/23/23 7:08:00 AM EDT, Aerosol, Route to Pharmacy Electronically, [id number], [facility] 3, 164, cm, 07/21/23 11:11:00 EDT, Height, [...] Refills, Maintenance, 10/27/23 1:31:00 PM EDT, Cream, [facility] 3, Partial fill upon patient [...] Gm, 0 Refills,Maintenance, 10/28/23 3:21:00 PM EDT, [facility], 14, APPLY TOPICALLY TO [...] 11:14:00 AM EDT, Route to Pharmacy Electronically, [facility] 3, Partial fill upon patient [...] Female (finding) Laboratory * Event Display: Non Lab Results Authored Date: * Event Display: Non Lab Results Authored Date: * Event Display: Non Lab Results Authored Date: Patient Care team information Care Team Personnel Name: Patel BURNETT, Ramya Jensen Position: [facility] PCO Associate Professional Member Role: [employer] Provider Address: [address] [place] [phone]- Tele[employer]: Name: Promise Marcum MD Position: [facility] OFFICE AUTOMATION CLERK Member Role: [employer] OFFICE AUTOMATION CLERK Physician Address: [address] [place] [address] [employer]aking [employer] [place], [place] [address] Telecom: Name: Jeanie Giron MD Position: [facility] OFFICE AUTOMATION CLERK MD Member Role: [employer] OFFICE AUTOMATION CLERK Physician Address: [address] [place] [address] [employer]aking [employer] Work[employer] [place], [place] [address] Telecom: Name: Leonides Lugo MD Position: [facility] Physician - Primary Care Member Role: PCP Address: [address] [place] [phone] Tele[employer]: Care Team Related Persons Name: MARIAM REGAN Insurance Providers Guarantor name: MATIAS JASS Health Plan Information #: 1 Payer: [employer] [facility] PPO Member Number: NA Policy Number: NA Group Number: NA
--- OUTSIDE RECORDS SUMMARY | 2024-02-25 09:00 | XMS_ITS | Continuity of Care Document ---
Author Organization [facility] Address [address] [place] [address] [address] [place] [address]- Care Team Providers Care Transportation Supervisor Name Role Phone Parihs HERRERA, Leonides Primary Care Physician Encounter [facility] [id number] Date(s): 02/14/24 - 02/21/24 [facility] [address] [place] [address] Attending Physician: Foreign Zimmerman MD Referring Physician: Leonides Lugo MD Encounter Type: [...] virus vaccine, inactivated 12/22/13 Give n SARS-CoV-2(COVID-19)mRNA-LNP vac([id number]) 12/28/22 Recorded pneumococcal 20-valent conjugate vaccine 5 06/05/22 Given SARS-CoV-2 (COVID-19) mRNA-1273 vaccine 07/04/21 R ecorded SARS-CoV-2 (COVID-19) mRNA-1273 vaccine 01/11/21 R ecorded SARS-CoV-2 (COVID-19) mRNA-1273 vaccine 04/04/20 R ecorded SARS-CoV-2 (COVID-19) mRNA-1273 vaccine 03/07/20 R ecorded SARS-CoV-2 mRNA ([id number]-epas-qdacx) vax 04/04/20 Recorded Influenza Virus Vaccine (oldterm) 12/06/18 Recorde d tetanus-diphtheria toxoids (Td) 6 10/24/18 Given Zoster Vaccine Live 7 02/08/15 Given tetanus/diphtheria/pertussis, acel(Tdap) 8 03/08/09 Given 1Result Comment: [02/16/2018] done at work 2Result Comment: [12/04/2016] [facility] [phone] 3Result Comment: [04/30/2016] [facility] 4Result Comment: [01/07/2015] Given by employer 5Result Comment: [facility] [phone] 6Result Comment: [facility] [phone] 7Result Comment: [02/08/2015] consent signed. 8Admin Note: done at [facility] services Medications albuterol CFC free 90 mcg/inh inhalation aerosol 2, puffs, Inhalation, 4 times a day, PRN, # 18 Gm, Refills 0, Tot. Refills 0, Maintenance, 07/23/23 7:08:00 AM EDT, Aerosol, Route to Pharmacy Electronically, [id number], [facility], 164, cm, 07/21/23 11:11:00 EDT, [...] Refills, Maintenance, 10/27/23 1:31:00 PM EDT, Cream, [facility], Partial fill upon patient request [...] Gm, 0 Refills,Maintenance, 10/28/23 3:21:00 PM EDT, [facility], 14, APPLY TOPICALLY TO AFFECTED [...] Refills, Maintenance, 02/18/24 10:04:00 AM EST, Tablet, [facility] #[id number], Partial fill upon patient request if [...] 11:14:00 AM EDT, Route to Pharmacy Electronically, [facility], Partial fill upon patient request [...] comorbidity Confirmed Active Sjogrens syndrome Confirmed Active Vital Signs Most recent to oldest [Reference Range]: 1 Height 164 cm (02/14/24 1:50 PM) Weight 98 kg (02/14/24 1:50 PM) Body Mass Index [18.5-24.99 kg/m2] 36.44 kg/m2 *>HHI* (02/14/24 1:50 PM) Social History Social History Type Response Tobacco Other: quit 1990. To bacco use times per day: Smoked 1 pack per week. Sex Sex Representation Female (finding) Patient Care team information Care Team Personnel Name: Patel BURNETT, Ramya Jensen Position: [facility] PCO Associate Professional Member Role: Lifetime Consulting Provider Address: [address] [place] [address] [place] [address]- Telecom: Name: Promise Marcum MD Position: [facility] AGENCY RECRUITER Member Role: Lifetime AGENCY RECRUITER Physician Address: [address] [place] [address] [facility] [employer] [place], [place] [address] Telecom: Name: Jeanie Giron MD Position: [facility] AGENCY RECRUITER Member Role: Lifetime AGENCY RECRUITER Physician Address: [address] [facility] [place] [address]- [place] Telecom: Name: Leonides Lugo MD Position: [facility] Physician - Primary Care Member Role: PCP Address: [address] [place] [address]- [place] Telecom: Care Team Related Persons Name: MARIAM REGAN Insurance Providers Guarantor name: MATIAS REGAN Health Plan Information #: 1 Payer: [facility] PPO Member Number: [id number] Policy Number: NA Group Number: [id number] Health Plan Information #: 2 Payer: [facility] PPO Member Number: [id number] Policy Number: NA Group Number: [id number]
--- OUTSIDE RECORDS SUMMARY | 2024-02-25 09:00 | XMS_ITS | Data Portability ---
Author Organization [place] [facility] Address [address] [place] [phone] Care Team Providers Care Coffee Roaster Helper Name Role Phone AMBER DIETRICH Primary Care [...] high frequencies. She will request that her personal financial representative send her most recent ones here. I [...] I gave her a list of several xxdi-nsk-rifpt er products which she may find helpful. [...] Details Recorded Time Otalgia of left ear 4219025199 Active 2016 Otalgia, left ear; Note: Date Diagnosed : 10/15/2016 6:17 PM (H92.02) Not Available [facility] 4 02:35:04 Obstructi ve sleep apnea syndrome 23846815 Active 2016 Obstructi ve sleep apnea (adult) (pediatri c); Note: Date Diagnosed : 10/15/2016 6:08 PM (G47.33) Not Available [facility] 4 02:35:05 Headache 05793593 Active 2018 Facial pain NOS; Note: Date Diagnosed : 10/20/2018 1:50 PM (R51) Not Available [facility] 4 02:35:07 Chronic sialadeni tis 587233639 Active 2015 Chronic sialoaden itis; Note: Date Diagnosed : 08/02/2015 9:06 AM (K11.23) Not Available [facility] 4 02:35:07 Chronic sphenoida l sinusitis 49139440 Active 2019 Chronic sphenoida l sinusitis ; Note: Date Diagnosed : 0 8:39 AM (J32.3) Not Available [facility] 4 02:35:04 Otalgia of right ear 6480231151 Active 2018 Otalgia, right ear; Note: Date Diagnosed : 10/20/2018 1:50 PM (H92.01) Not Available [facility] 4 02:35:14 Bilateral temporoma ndibular joint pain 91371381414 184934 Active 2018 Arthralgi a of bilateral temporoma ndibular joint; Note: Date Diagnosed : 10/20/2018 1:51 PM (M26.623) Not Available [facility] 4 02:35:05 Allergic rhinitis 16998512 Active 2013 Allergic Rhinitis; CMS Risk: moderate risk CMS Treatment : new problem (to examiner) : no additiona l workup planned N ote: Date Diagnosed : 4 10:55 AM (477.9) Not Available [facility] 4 02:35:02 Bilateral tinnitus 06427497233 02 Active 2016 Tinnitus, bilateral ; Note: Date Diagnosed : 10/15/2016 5:23 PM (H93.13) Not Available [facility] 4 02:35:01 Abnormal auditory perceptio n 72121330 Active 2018 Other abnormal auditory perceptio ns, right ear; Note: Date Diagnosed : 10/20/2018 1:51 PM (H93.291) Not Available [facility] 4 02:35:01 Gastroeso phageal reflux disease 285685104 Active 2013 Laryngoph aryngeal reflux; CMS Risk: low risk CMS Treatment : new problem (to examiner) : no additiona l workup planned N ote: Date Diagnosed : 4 10:55 AM (530.81) Not Available [facility] 4 02:35:02 Disturban ce of salivary secretion 71909706 Active 2015 Diseases of the salivary glands: Xerostomi a; Note: Date Diagnosed : 07/06/2014 11:35 AM (527.7) ; Start Date : 5 Disturb ances of salivary secretion ; Note: Date Diagnosed : 08/02/2015 9:06 AM (K11.7) Not Available [facility] 4 02:35:11 Posterior rhinorrhe a 22526180 Active 2018 Postnasal drip; Note: Date Diagnosed : 10/20/2018 1:50 PM (R09.82) Not Available [facility] 4 02:35:09 Disorder of smell 956441912 Active 2017 Other disturban saritha of smell and taste; Note: Date Diagnosed : 12/13/2017 3:41 PM (R43.8) Not Available [facility] 4 02:35:08 Disorder of taste 959533808 Active 2017 Other disturban saritha of smell and taste; Note: Date Diagnosed : 12/13/2017 3:41 PM (R43.8) Not Available [facility] 4 02:35:08 Dizziness and giddiness 636542964 Active 2016 Dizziness and giddiness ; Note: Date Diagnosed : 10/15/2016 3:52 PM (R42) Not Available [facility] 4 02:35:15 Sensorine ural hearing loss of bilateral ears 556014564 Active 2016 Sensorine ural hearing loss, bilateral ; Note: Date Diagnosed : 10/15/2016 6:08 PM (H90.3) Not Available [facility] 4 02:35:02 Dysphonia 50726503 Active 2023 Hoarsenes s; Note: Date Diagnosed : 04/06/2023 12:38 PM (R49.0) Not Available [facility] 4 02:35:02 Disorder of nasal sinus 1922501 Active 2023 Other specified disorders of nose and nasal sinuses; Note: Date Diagnosed : 07/08/2023 3:42 PM (J34.89) Not Available [facility] 4 02:35:13 Disorder of the nose 39455306 Active 2023 Other specified disorders of nose and nasal sinuses; Note: Date Diagnosed : 07/08/2023 3:42 PM (J34.89) Not Available [facility] 4 02:35:13 Chronic perichond ritis of left external ear 32397020526 26780 Active 2023 Chronic perichond ritis of left external ear; Note: Changed from H61.0 to H61.022 ( 4 3:15 PM) , Date Diagnosed : 07/08/2023 3:42 PM (H61.0) Not Available [facility] 4 02:35:14 Problem Notes None recorded. Medical Equipment None Reported. Allergies Allergen ID Allergen Name Allergen Category Reaction Reaction Severity Criticality Documentation Date Start Date Code Code System Note Provider Name and Address Organization Details Recorded Time 50306 codeine phosphate medicatio n other Not available Not available 07/20/2023 2672 RxNorm React ion: unkno wn, unspe cifie d;; Not Available [facility] 4 01:02:07 40365 levofloxa olegario medicatio n other Not available Not available 07/20/2023 76600 RxNorm React ion: unkno wn, unspe cifie d;; Not Available [facility] 4 01:02:09 43091 metronida zole hydrochlo ride medicatio n other Not available Not available 07/20/2023 06298 RxNorm React ion: unkno wn, unspe cifie d;; Not Available [facility] 4 01:02:10 00014 cephalexi n monohydra te medicatio n other Not available Not available 07/20/2023 32933 8 RxNorm React ion: unkno wn, unspe cifie d;; Not Available [facility] 4 01:02:13 10266 erythromy olegario medicatio n other Not available Not available 07/20/2023 4053 RxNorm React ion: unkno wn, unspe cifie d;; Not Available [facility] 4 01:02:14 16870 Medicinal product containin g tetracycl ine structure and acting as antibacte rial agent (product) medicatio n other Not available Not available 07/20/2023 66818 1004 SNOMED React ion: unkno wn, unspe cifie d;; Not Available [facility] 4 01:02:16 47647 Substance with sulfonami de structure and antibacte rial mechanism of action (substanc e) medicatio n other Not available Not available 07/20/2023 09153 8003 SNOMED React ion: unkno wn, unspe cifie d;; Not Available [facility] 4 01:02:18 Medications Name Sig Start Date Stop Date Status Note LastModified by Organization Details LastModified Time quickvue at-home covid-19 t USE DIRECTED active Not Available Not Available No t Available nystatin 100,000 unit/mL oral suspensio n 12/13 completed Medicati on ID: [id number] D uration Value: 14 Brand Name: nystatin Send Method: E-Prescr ibed Sub s Allowed: subs OK Medic ationGen ericName : nystatin Not Available Not Available Not Available desoximet asone 0.25 % topical cream 08/13 completed Medicati on ID: [id number] B rand Name: desoxime tasone S end [...] by mouth 01/17 completed Medicati on ID: 85398 Du ration Value: 1 Prescri bed By [...] , auto-inje ctor active Medicati on ID: [id number] B rand Name: epinephr ine Send Method: E-Prescr ibed Sub s Allowed: subs OK Medic ationGen ericName : epinephr ine Not Available Not Available Not Available estradiol 0.01% (0.1 mg/gram) vaginal cream 08/13 completed Medicati on ID: 338156 B rand Name: estradio l Send Method: E-Prescr ibed Sub s Allowed: subs OK Medic ationGen ericName : estradio l Not Available Not Available Not Available albuterol sulfate HFA 90 mcg/actua tion aerosol inhaler INHALE 2 PUFFS EVERY 4 HOURS NEEDED FOR WHEEZING active Not Available Not Available No t Available Sudafed 01/17 completed Medicati on ID: [id number] B rand Name: sudafed Send Method: E-Prescr ibed Sub s Allowed: subs OK Medic ationGen ericName : sudafed Not Available Not Available Not Available Zyrtec 10 mg capsule 2017 active Medicati on ID: [id number] B rand Name: Zyrtec S end Method: E-Prescr ibed Sub s Allowed: subs OK Medic ationGen ericName : Zyrtec Not Available Not Available Not Available [facility] 60 mg tablet 12/13 completed Medicati on ID: [id number] Br and Name: [facility] All[facility] Send Method: [...] Updated DateTime 01/18/2024 165.1 cm 35.9 kg/m2 14661.95 g Mary Jane Mccollum [place] - [facility] 01/18/2024 11:03:53 Social History None recorded. Functional [...] Diagnosis/Indication Diagnosis SNOMED-CT Code Diagnosis ICD10 Code 00106 REGINA BENITEZ MD [facility] on [address] [place] [phone] 01/18/2024 10:55:51 01/18/2024 11:21:25 Bilateral temporomandibular joint pain 4315062240 5107699 M26.623 Disorder of the nose 894 87298 J34.89 Disturbanc e of salivary secretion 72715598 K11.7 Health Concerns Section Related Observation LastModified by Organization Detai ls LastModified Time None Recorded Concern Status LastModified by Organization Details LastModified Time None Recorded Advance Directives Directive None Recorded Payers Encounter Date Sequence Insurance Name Policy Number Policy Jenkins Covered Member ID Jenkins Member ID Guarantor Name 01/18/2024 1 [facility] [id number] Aliyah Crenshaw [id number] Aliyah Crenshaw Notes Date Note Type Note [...] pain occasionally Thyroid US in October at [facility]. Stable left lower pole 2.3 cm [...] lower pole nodule which is benign biopsy go8056.Number three. Chronic sialoadenitis. She does feel some swelling of her salivary gland that time. She followed with Dr. Godfrey. Her most recentultrasound in 2021 showed normal submandibular gland. She had a positive biopsy for Sjogren's in 2020. REGINA BENITEZ MD [address] [place] [address], [place], [address], [facility] - [facility] 01/18/2024 12:49:44 OBGyn Episode No OBEpisode recorded.
--- OUTSIDE RECORDS SUMMARY | 2024-02-25 09:00 | XMS_ITS | Continuity of Care Document ---
Author Organization [facility] Address [address] [place] [address]- Care Team Providers Care Slip Injector And Applicator Name Role Phone Parish [facility] Primary Care Physician Encounter [facility] Date(s): 12/29/23 - 01/28/24 [facility] [address] [place] [address]- Attending Physician: Gunnar Melgoza Admitting Physician: Gunnar [...] mRNA-1273 vaccine 3 Moderna Vaccine Rash/Hives Active Latex unknown Active 1Seasonal allergies 2sensitivity to cleaning supplies [...] virus vaccine, inactivated 12/22/13 Give n SARS-CoV-2(COVID-19)mRNA-LNP vac(ajw754) 12/28/22 Recorded pneumococcal 20-valent conjugate vaccine 5 06/05/22 Given SARS-CoV-2 (COVID-19) mRNA-1273 vaccine 07/04/21 R ecorded SARS-CoV-2 (COVID-19) mRNA-1273 vaccine 01/11/21 R ecorded SARS-CoV-2 (COVID-19) mRNA-1273 vaccine 04/04/20 R ecorded SARS-CoV-2 (COVID-19) mRNA-1273 vaccine 03/07/20 R ecorded SARS-CoV-2 mRNA (tqwuzec-htvx-vxvwj) vax 04/04/20 Recorded Influenza Virus Vaccine (oldterm) 12/06/18 Recorde d tetanus-diphtheria toxoids (Td) 6 10/24/18 Given Zoster Vaccine Live 7 02/08/15 Given tetanus/diphtheria/pertussis, acel(Tdap) 8 03/08/09 Given 1Result Comment: [02/16/2018] done at work 2Result Comment: [12/04/2016] [facility] [phone] 3Result Comment: [04/30/2016] [facility] 4Result Comment: [01/07/2015] Given by employer 5Result Comment: [facility] [phone] 6Result Comment: [facility] [phone] 7Result Comment: [02/08/2015] consent signed. 8Admin Note: done at [facility] Problem List Condition Confirmation Course Effective Dates [...] Personnel Name: Patel BURNETT, Ramya Jensen Position: [facility] PCO Associate Professional Member Role: Lifetime Consulting Provider Address: [address] [place] [address] Urgogynecology [place], [place] [address] Telecom: Name: Promise Marcum MD Position: [facility] MANAGER FIELD MD Member Role: Lifetime MANAGER FIELD Physician Address: [address] [place] [address] Title Investigator [address] Telecom: Name: Jeanie Giron MD Position: [facility] MANAGER FIELD MD Member Role: Lifetime MANAGER FIELD Physician Address: [address] [place] [address] Title Investigator [place] [phone] Telecom: Name: Leonides Lugo MD Position: [facility] Physician - Primary Care Member Role: PCP Address: [address] [place] [address] [place] Telecom: Care Team Related Persons Name: MARIAM REGAN Insurance Providers Guarantor name: MATIAS REGAN Health Plan Information #: 1 Payer: AMANDA [facility] PPO Member Number: NA Policy Number: NA Group Number: NA
--- OUTSIDE RECORDS SUMMARY | 2024-02-25 09:00 | XMS_ITS ---
[facility] Name [facility] Unknown History of Medication Use Medication Directions Dispensed Refills Start Date End Date Stat albuterol sulfate HFA 90 mcg/actuation aerosol inhaler INHALE 2 PUFFS BY MOUTH EVERY 4 HOURS NEEDED FOR WHEEZING 09/21/2022 active Kenalog 40 mg/mL suspension for injection Take 1 mL by injection route. 09/21/2022 active nystatin 100,000 unit/mL oral suspension TAKE 5 ML BY MOUTH THREE TIMES A DAY FOR 7 DAYS; RETAIN IN MOUTH LONG POSSIBLE BEFORE SWALLOWING 09/21/2022 completed mupirocin 2 % topical ointment APPLY TOPICALLY TO AFFECTED AREA TWO TIMES A DAY FOR 14 DAYS 09/21/2022 completed desoximetasone 0.25 % topical cream APPLY TOPICALLY TO AFFECTED ECZEMA AREAS TWICE DAILY FOR TWO WEEKS ON, THEN TAKE ONE WEEK BREAK. REPEAT NEEDED. 09/21/2022 completed fluconazole 150 mg tablet 09/21/2022 completed amoxicillin 875 mg-potassium clavulanate 125 mg tablet TAKE 1 TABLET BY MOUTH EVERY 12 HOURS FOR 7 DAYS 09/21/2022 active econazole 1 % topical cream APPLY TOPICALLY TO AFFECTED AREAS ON FEET AND TOES TWO TIMES A DAY FOR 4 WEEKS OR NEEDED 09/21/2022 completed lidocaine (PF) 10 mg/mL (1 %) injection solution Take 1 mL by injection route. 09/21/2022 active BinaxNOW COVID-19 Ag Self Test kit TEST DIRECTED TODAY 09/21/2022 completed betamethasone, augmented 0.05 % topical cream APPLY TOPICALLY TWO TIMES A DAY TO BACK AND LEGS. ALTERNATE APPLYING FOR 2 WEEKS, THEN STOPPING FOR 1 WEEK. DO NOT APPLY TO FACE OR BODY FOLDS 09/21/2022 completed Allergies Allergen Reaction Severity Comment Documented Date Source Statu s ESOMEPRAZOLE ENS_AONECT SEPTRA ENS_AONECT CARAFATE ENS_AONECT METRONIDAZOLE ENS_AONECT POVIDONE-IODINE ENS_AONECT KEFLEX ENS_AONECT OMEPRAZOLE ENS_AONECT ERYTHROMYCIN BASE ENS_AONECT TETRACYCLINE ENS_AONECT CLOTRIMAZOLE ENS_AONECT LEVAQUIN ENS_AONECT COVID-19 VACCINE, MRNA, [id number], LNP-S (MODERNA) ENS_AONECT CODEINE ENS_AONECT RABEPRAZOLE ENS_AONECT Problems Problem Status Onset Date Problem Type Date of Resoluti on Source Osteoarthritis of right knee joint active 2022-06-18 ProblemAct ENS_AONECT Impingement syndrome of left shoulder region active 2022-09-17 ProblemAct ENS_AON ECT
--- OUTSIDE RECORDS SUMMARY | 2024-02-25 09:00 | XMS_ITS ---
Author Organization [facility] Address [address] [facility] [place] [address] Care Team Providers Care Spacer Type Bar And Segment Name Role Phone Parish HERRERA, Leonides Primary Care Provider Kyleigh vailable Jerry Murillo Unavailable [phone] REASON FOR VISIT [employer] OT W8-8.5 Encounters Encounter Location Date Provider [facility] [address] [place] [address] [place] [phone] 10/14/2022 Jerry Murillo Plan Of Treatment No Information Progress Notes * Aliyah REGAN ADOB:[birth year] (66 yo F)Acc No.[id number]:10/14/2022 Patient:?Cecilia Reganclint Pitts :1955???Age:66 Y???Sex:Female Address:[address] [place] [address] [place] [address] * true * Date:? Generated for Printi bella/Gurwinder/eTransmitting on:?02/25/2024 08:59 AM EST
--- OUTSIDE RECORDS SUMMARY | 2024-02-25 09:00 | XMS_ITS | Data Portability ---
Author Organization [place] [facility] [place] Address [address] [place] [address] Care Team Providers Care Airways Operations Specialist Name Role Phone AMBER DIETRICH Primary Care Provider Assessment Encounter Date Assessment Date Assessment LastModified by Organization Details LastModified Time 06/18/2022 06/18/2022 This is a pleasant 66-year-old female with bilateral knee pain right worse than left she states she is overall asymptomatic on her left knee. She states she notes an angulation she has catching at times. She is trying to stave off surgery as long as possible. I did review her radiographs with her in detail. She is opting for a cortisone injection of the right knee joint at today's visit. After verbal consent was obtained by the patient. The procedure was carried out the right knee. The patient tolerated the procedure well aftercare instructions were discussed in detail. Follow-up visit 3 weeks time for repeat clinical exam. Should her symptoms not improve or worsen she should contact my office. She agrees with the above-noted plan. Indirect care and treatment in conjunction with Dr. Sarmiento Additional treatment plan discussed with the patient in detail included the following; - Provider focused nonsteroidal anti-inflammator y regimen (discussed were the pros, cons, benefits and risks as well as any black box warnings) - Analgesic pain medication for pain suppression (discussed were the pros, cons, benefits and risks as well as any black box warnings) - The use of topical pain relieving medication were discussed - The use of ice to decrease inflammation and pain - The use of assistive ambulatory devices for ambulation and fall prevention - Formal specific guided physical therapy program I reviewed my findings at length with the patient today. ??We discussed the nature and etiology of this problem along with current treatment options. We discussed the expected course and outcomes and what to expect. We also discussed risks and benefits. ??All of their questions were answered today, and there was exhibited understanding and comprehension of all that was discussed. 10 minutes were spent reviewing previous imaging and charting. ??10 minutes were spent obtaining patient history. ??5 minutes were spent on physical exam. ??5??minutes were spent explaining diagnosis and assessment. Today's documentation was made using voice recognition software. This note may contain grammatical errors secondary to the software. 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 She states her symptoms typically go away when she goes on vacation and has decreased use. She does have clinical evidence of impingement syndrome. I did have a discussion with the patient regarding management. She wishes to hold off on any further advanced imaging work-up/PT however she is amenable to a cortisone injection. After verbal consent was obtained. The procedure was carried out on the left shoulder she tolerated the procedure well aftercare instructions were discussed in detail. I would like to reevaluate her in 3 months time for repeat clinical exam should her symptoms not improve or worsen she should contact my office. She agrees with the above-noted plan. Indirect care and treatment in conjunction with Dr. Sarmiento Additional treatment plan discussed with the patient in detail included the following; - Provider focused nonsteroidal anti-inflammator y regimen (discussed were the pros, cons, benefits and risks as well as any black box warnings) in patients over 60 years old they should be very cautious in taking these medications due to potential decreased kidney function and or elevated blood pressure. - Analgesic pain medication for pain suppression (discussed were the pros, cons, benefits and risks as well as any black box warnings) - The use of topical pain relieving medication were discussed - The use of ice to decrease inflammation and pain - The use of assistive ambulatory devices for ambulation and fall prevention - Formal specific guided physical therapy program I reviewed my findings at length with the patient today. ??We discussed the nature and etiology of this problem along with current treatment options. We discussed the expected course and outcomes and what to expect. We also discussed risks and benefits. ?? All of their questions were answered today, and there was exhibited understanding and comprehension of all that was discussed. Time Spent: 10 minutes were spent reviewing previous imaging and charting. ??10 minutes were spent obtaining patient history. ??5 minutes were spent on physical exam. ??5??minutes were spent explaining diagnosis and assessment. Today's documentation was made using voice recognition software. This note may contain grammatical errors secondary to the software. [email or web address] Not available 09/17/2022 14:05:35 Plan of Treatment Reminders Order Date Submit Date Provider Last Modified By Organization Details Last Modified Time Details Appointments None recorded. Lab None recorded. Referral None recorded. Procedures None recorded. Surgeries None recorded. Imaging XR, knee, 1 or 2 view - Left Knee Pain [email or web address] [place] [address] [facility], [address], [address], [place], [address], 3 13:02:37 XR, knee, 1 or 2 view - Right Knee Pain 2022 023 atz [facility], [address], [address], [place], [address], 3 13:02:37 XR, knee, weightbeari ng - Bilateral Knee Pain 2022 023 [email or web address] [facility], [address], [address], [place], [address], 3 13:02:37 XR, shoulder, 2 or more view 2022 023 atz [facility], [address], [address], [place], [address], 3 15:22:14 Medication Orders Kenalog 40 mg/mL suspension for injection [address], [address] [place], [address], 3 10:01:25 lidocaine (PF) 10 mg/mL (1 %) injection solution 2022 023 [facility] 3, [address] [place], [address], 10:01:24 Kenalog 40 mg/mL suspension for injection 2022 023 [email or web address] Not available 13:57:06 lidocaine (PF) 10 mg/mL (1 %) injection solution 2022 023 [email or web address] Not available 13:57:06 Patient TargetsNo targets recorded. Patient Instructions Encounter Date Encounter Id Patient Instructions Last Modified By Organization Details Last Modified Time 06/18/2022 [id number] You have been provided with a cortisone injection in order to reduce the pain and inflammation that you are experiencing. The injection consists of two medications. Cortisone (an anti-inflammatory that will take 48-72 hours to take effect) and Lidocaine (a numbing agent that will last 2-3 hours). Please note that not everyone will have a lasting response following the injection. PATIENT INSTRUCTIONS Once the Lidocaine wears off, you may have an increase in your pain. I recommend icing the affected area for 20 minutes 3-4 times per day. It is recommended that you refrain from any high level activities using the joint or limb that was injected for approximately 24-48 hours. Normal day-to-day activities are generally not a problem. POSSIBLE SIDE EFFECTS Individuals with dark complexions may experience some skin discoloration locally at the site of the injection. There is the possibility of an increase in discomfort within 48 hours following the injection. This is called a ? flare? . To help minimize the chances of this, please see the post-injection instructions above. There is a less than 1% chance of an infection. If you notice any signs of infection (redness, warmth, drainage, fever greater than 100 degrees) please call our office or contact us through the portal PEDRO PABLO. Not available 06/18/2022 09:59:11 AP, Guzman, lateral and sunrise view reveals the following; Right knee grade 4 lateral compartment degenerative arthritis with osteophyte formation subchondral sclerosis best visualized Guzman view, lateral view with moderate patellofemoral joint space narrowing as well as narrowing on sunrise view no acute bony abnormality no obvious fracture or dislocation. Left knee x-ray reveals overall well-maintained joint space on AP and Guzman view with mild subchondral sclerosis however she does have moderately severe patellofemoral joint space narrowing best visualized on lateral and sunrise view with osteophyte formation and subchondral sclerosis without acute bony abnormality Not available 06/18/2022 10:01:18 09/17/2022 [id number] You have been provided with a cortisone injection in order to reduce the pain and inflammation that you are experiencing. The injection consists of two medications. Cortisone (an anti-inflammatory that will take 48-72 hours to take effect) and Lidocaine (a numbing agent that will last 2-3 hours). Please note that not everyone will have a lasting response following the injection. PATIENT INSTRUCTIONS Once the Lidocaine wears off, you may have an increase in your pain. I recommend icing the affected area for 20 minutes 3-4 times per day. It is recommended that you refrain from any high level activities using the joint or limb that was injected for approximately 24-48 hours. Normal day-to-day activities are generally not a problem. POSSIBLE SIDE EFFECTS Individuals with dark complexions may experience some skin discoloration locally at the site of the injection. There is the possibility of an increase in discomfort within 48 hours following the injection. This is called a ? flare? . To help minimize the chances of this, please see the post-injection instructions above. There is a less than 1% chance of an infection. If you notice any signs of infection (redness, warmth, drainage, fever greater than 100 degrees) please call our office or contact us through the portal PEDRO PABLO. Not available 09/17/2022 14:05:45 Three-view x-ray of the left shoulder AP, Grashey and outlet view reveal AC joint space narrowing consistent with arthritis, glenohumeral joint space narrowing and subchondral sclerosis of the glenoid, type II acromion without acute bony abnormality. Not available 09/17/2022 13:46:09 Reason for Referral None Reported. Problems Name Problem SNOMED Code Status Onset Date Resolution Date Notes Provider Name and Address Organization Details Recorded Time Impingement syndrome of left shoulder region 5389508790028 04 Active 2022 STORM GOODWIN PA-C [address], [place], [address], [place] [facility] 3 13:46:25 Osteoarthri tis of right knee joint [id number] 00 Active 2022 STORM GOODWIN PA-C [address], [place], [address], [place] [facility], [facility] 3 09:58:36 Problem Notes None recorded. Procedures Surgical History Date Name Laterality Status Provider Name and Address Organization Details Recorded Time 09/18/19 23 Shoulder Joint/Bursa Asp & Inj completed STORM GOODWIN PA-C [address], [place], [address], [place] [facility], [facility] 09/17/2022 14:04:09 06/19/19 23 Knee Joint/Bursa Asp & Inj completed STORM GOODWIN PA-C [address], [place], [address], [place] [facility], [facility] 06/18/2022 09:58:04 cholecystectomy completed Jessica Pettit [place] [facility], P 06/18/2022 09:51:11 Hysterectomy completed Jessica Pettit [place] [facility], P 06/18/2022 09:51:19 Tonsillectomy/Adeno idectomy completed Jessica Pettit [place] [facility], [facility] 06/18/2022 09:51:37 Imaging Results None recorded. Procedure Notes None recorded. Medical Equipment None Reported. Allergies Allergen ID Allergen Name Allergen Category Reaction Reaction Severity Criticality Documentation Date Start Date Code Code System Note Provider Name and Address Organization Details Recorded Time 2174 Carafate medicatio n Not available Not available Not available 06/18/2022 95920 3 RxNorm Jessica [place], [place] [facility], P 09:47:09 2176 clotrimaz ole medicatio n Not available Not available Not available 06/18/2022 2623 RxNorm Jessica Hodan null, [place] [facility], [facility] 3 09:47:17 2177 codeine medicatio n Not available Not available Not available 06/18/2022 2670 RxNorm Jessica Pettit null, [place] [facility], [facility] 3 09:47:27 2178 SARS-CoV- 2 (COVID-19 ) vaccine, mRNA-1273 medicatio n Not available Not available Not available 06/18/2022 42211 32 RxNorm Jessica Pettit null, [place] [facility], [facility] 3 09:47:43 2179 erythromy olegario medicatio n Not available Not available Not available 06/18/2022 4053 RxNorm Jessica Ingramlie null, [place] [facility] 3 09:47:55 2180 esomepraz ole Not available Not available Not available Not available 06/18/2022 42810 2 RxNorm Jessica Ingramlie null, [place] [facility] 3 09:48:05 2181 Keflex medicatio n Not available Not available Not available 06/18/2022 67950 7 RxNorm Jessica Pettit null, [place] [facility] 3 09:48:13 2182 metronida zole medicatio n Not available Not available Not available 06/18/2022 6922 RxNorm Jessica Ingramlie null, [place] [facility] 3 09:48:23 2185 omeprazol e medicatio n Not available Not available Not available 06/18/2022 7646 RxNorm Jessica Ingramlie null, [place] [facility] 3 09:48:29 2186 povidone- iodine medicatio n Not available Not available Not available 06/18/2022 8611 RxNorm Jessica Ingramlie null, [place] [facility] 3 09:48:39 2187 rabeprazo le medicatio n Not available Not available Not available 06/18/2022 82133 9 RxNorm Jessica Pettit null, [place] [facility] 3 09:48:47 2189 sulfameth oxazole / trimethop rim medicatio n Not available Not available Not available 06/18/2022 65434 RxNorm Jessica stuart, [place] [facility] 3 09:49:04 2190 Levaquin medicatio n Not available Not available Not available 06/18/2022 26635 2 RxNorm Jessica [place], [place] [facility], [facility] 3 09:49:21 2192 tetracycl ine medicatio n Not available Not available Not available 06/18/2022 11772 RxNochiquita stuart, [place] - [facility], [facility] 3 09:49:33 Medications Name Sig Start Date Stop Date Status Note LastModified by Organization Details LastModified Time nystatin 100,000 unit/mL oral suspension TAKE 5 ML BY MOUTH THREE TIMES A DAY FOR 7 DAYS; RETAIN IN MOUTH LONG POSSIBLE BEFORE SWALLOWIN G 08/25 completed Not Available Not Available Not Available desoximetas one 0.25 % topical cream APPLY TOPICALLY TO AFFECTED ECZEMA AREAS TWICE DAILY FOR TWO WEEKS ON, THEN TAKE ONE WEEK BREAK. REPEAT NEEDED. 08/25 completed Not Available Not Available Not Available fluconazole 150 mg tablet 08/25 completed Not Available Not Available Not Available betamethaso ne, augmented 0.05 % topical cream APPLY TOPICALLY TWO TIMES A DAY TO BACK AND LEGS. ALTERNATE APPLYING FOR 2 WEEKS, THEN STOPPING FOR 1 WEEK. DO NOT APPLY TO FACE OR BODY FOLDS 08/25 completed Not Available Not Available Not Available Kenalog 40 mg/mL suspension for injection Take 1 mL by injection route. 2022 active Not Available Not Available Not Avai lable econazole 1 % topical cream APPLY TOPICALLY TO AFFECTED AREAS ON FEET AND TOES TWO TIMES A DAY FOR 4 WEEKS OR NEEDED 08/25 completed Not Available Not Available Not Available mupirocin 2 % topical ointment APPLY TOPICALLY TO AFFECTED AREA TWO TIMES A DAY FOR 14 DAYS 08/25 completed Not Available Not Available Not Available albuterol sulfate HFA 90 mcg/actuati on aerosol inhaler INHALE 2 PUFFS BY MOUTH EVERY 4 HOURS NEEDED FOR WHEEZING active Not Available Not Available No t Available amoxicillin 875 mg-potassiu m clavulanate 125 mg tablet TAKE 1 TABLET BY MOUTH EVERY 12 HOURS FOR 7 DAYS active Not Available Not Available No t Available lidocaine (PF) 10 mg/mL (1 %) injection solution Take 2 mL by injection route. 2022 active Not Available Not Available Not [facility] Ag Self Test kit TEST DIRECTED TODAY 08/25 completed Not Available Not Available Not Available Vitals None Recorded Social History None recorded. Functional Status None recorded. Mental Status None recorded. Family History Relationship Description Onset Age of this Age Resolved Age Notes LastModified by Organization Details LastModified Time Mother Family history of malignant neoplasm [email or web address] Not available 2022 09:50:08 Mother Heart disease [email or web address] Not available 2022 09:50:30 Sister Family history of malignant neoplasm Not available 2022 09:50:08 Father Heart disease [email or web address] Not available 2022 09:50:30 Brother Heart disease [email or web address] Not available 2022 09:50:30 Brother Diabetes mellitus [email or web address] Not available 2022 09:50:46 Brother Hypertensive disorder [email or web address] Not available 2022 09:50:59 Medical History No medical history recorded. Gynecological HistoryNo gynecological history recorded. Obstetrics History GPAL:G 0 P 0 0 0 0 Past Encounters Encounter ID Performer Location Encounter Start Date Encounter Closed Date Diagnosis/Indication Diagnosis SNOMED-CT Code Diagnosis ICD10 Code [id number] MD [facility] [address] [place] [address] 06/18/2022 09:10:50 06/18/2022 09:59:35 Pain of left knee joint [id number] 81927 M25.562 Pain of bi lateral knee joints 0334036825 01221 M25.561 Pain of ri ght knee joint 3550338951 92483 M25.561 Osteoarthr itis of right knee joint 4609131972 32213 M17.[id number] [facility] [address] [facility] [address] [place] [address] 09/17/2022 13:27:55 09/17/2022 14:02:18 Pain of left shoulder joint 2105448327 1629613 M25.512 Impingemen t syndrome of left shoulder region 2648110322 04548 M75.42 Health Concerns Section Related Observation LastModified by Organization Detai ls LastModified Time None Recorded Concern Status LastModified by Organization Details LastModified Time None Recorded Advance Directives Directive None Recorded Payers Encounter Date Sequence Insurance Name Policy Number Policy Jenkins Covered Member ID Jenkins Member ID Guarantor Name 06/18/2022 1 [facility] [id number] 3 Aliyah Crenshaw [id number] Aliyah Crenshaw 09/17/2022 1 [facility] [id number] Aliyah Rodriguezand [id number] Aliyah Crenshaw Notes Date Note Type Note Provider Name and Address Organization Details Recorded Time 06/18/2022 text/html This is a very pleasant 66-year-old female with chief complaint of bilateral knee pain right worse than left. She states some mechanical symptoms as well as angulation to her right knee. She states going up and down stairs makes her symptoms worse. She states she does get satisfactory relief with cortisone injections. It has been greater than 3 months since her last injection. Pain is described as medial in nature especially with weightbearing and going up and down stairs. She denies any trauma denies any warmth overlying the knee joint denies any fevers or chills. SOTRM GOODWIN PA-C [address], [address], [place] [facility] 06/18/2022 10:02:36 09/17/2022 text/html Very pleasant 66-year-old female drwqu-xgbo-sqtcxvwk chief complaint left shoulder pain at today's visit she describes it is generalized in nature overlying her deltoid with some radiation down the lateral aspect. She denies any injury here for evaluation and treatment. She does states she has a longstanding history of what she describes as polyarthralgia she is seeing another provider for her neck symptoms. STORM GOODWIN PA-C [address] [facility],[address] [address], [place], [address], [place] [facility] 09/17/2022 14:06:16 OBGyn Episode No OBEpisode recorded.
--- OUTSIDE RECORDS SUMMARY | 2024-02-25 09:00 | XMS_ITS | Patient Health Record ---
Author Organization [facility] [place] Address [address] [place] [address] Care Team Providers Care Power System Engineer Name Role Phone Parish HERRERA, [facility] Primary Care Provider Kyleigh Jerry Strickland Unavailable [phone] Allergies Allergen (clinical drug ingredient) Drug/Non Drug [...] Active codeine Codeine itchy Drug Allergy Active Reason For Referral No Information Medications Medication SIG (Take, Route, Fr equency, Duration) Notes Start Date End Date Status Betamethasone prn Active ZyrTEC 1 tsp Active Soolantra Active Multivitamin Active Magnesium Active Tylenol 325 MG 1 tablet as needed O rally every 6 hrs Not-Taking Benadryl 25 MG 1 capsule as needed Orally every 6 hrs Not-Taking Probiotic Active Apple Cider Vinegar Not-Taking Mupirocin Active Turmeric Not-Taking Lutein Not-Taking Immunizations Vaccine Route Administration Date Status Comme nts COVID-19 Moderna Vaccine Unknown 04/04/2020 Administered First Dose: 02/07 Social History Tobacco Use: Social History Observation [...] W/U Status Risk Notes Problem Interstitial myositis (17914902) Interstitial myositis of right foot (M60.171) Active confirmed Plan Of Treatment Pending Test Test Name Order Date X ray : Foot, right 3V 01/02/2020 X ray : Foot, right 3V 11/22/2020 X ray : Foot, right 3V 10/14/2022 Insurance Providers Payer Name Payer Address Payer Phone Subscriber Number Group Number Insured Name Patient Relationship to Insured Coverage Start Date Coverage End Date [employer] [facility] [address] [facility] [place] [phone] [phone] [id number] Aliyah Crenshaw Self - patient is the insured Medical (General) History Medical History History ICD Code anemia reflux psoriasis/eczema neuropathy chicken pox measles mumps hernia gall bladder problems Anxiety Arthritis asthma Back,Hip,and Knee pain osteoarthritis Surgical History Surgery Date(Month/Year) tonsillectomy and adenoidectomy 1967 tubal ligation gall bladder 2010 vaginal ablation cystedenoma 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
== END 2024-02-25 09:28 | disposition home or self-care (01) ==
PROVIDERS: PCP Internal Medicine; Visit Provider Nurse Practitioner
DX: K21.9 Gastro-esophageal reflux disease without esophagitis (principal); K22.70 Barrett's esophagus without dysplasia; Z88.9 Allergy status to unspecified drugs, medicaments and biological substances; Z80.0 Family history of malignant neoplasm of digestive organs
CPT/HCPCS: 99214

== ENCOUNTER → 2024-02-25 08:48 | Outpatient (BNVA) | payer OTHER, SELFPAY | PROVIDERS: PCP Internal Medicine; Visit Provider Nurse Practitioner ==

== ENCOUNTER 2024-07-18 08:23 | Day surgery (SDC) | payer OTHER, SELFPAY ==
--- OUTSIDE RECORDS SUMMARY | 2024-06-22 16:33 | XMS_ITS | Continuity of Care Document ---
Author Organization [facility] Adult Address [address] [place] [address]- Care Team Providers Care Business Performance Specialist Name Role Phone Parish HERRERA, Mikejoe Primary Care Physician Encounter [facility] Date(s): 05/17/24 - 06/16/[address] [address]- Encounter Type: Triage Allergies, Adverse Reactions, Alerts Substance Criticality Severity Reaction Reaction Severity Status codeine crawling feelin g Itching of skin Active doxycycline red face Headache Active tetracycline red face Headache Active erythromycin Hives Active azithromycin Vomiting Active omeprazole heart palpitations Active clotrimazole hives Active sulfa drugs Hives Active Keflex Red face 13-MAY-2013 07:18:10<$> Active Septra Red face 13-MAY-2013 07:18:10<$> Active Betadine itch Active Levaquin Night [...] virus vaccine, inactivated 12/22/13 Give n SARS-CoV-2(COVID-19)mRNA-LNP vac([id number]) 12/28/22 Recorded pneumococcal 20-valent conjugate vaccine 5 06/05/22 Given SARS-CoV-2 (COVID-19) mRNA-1273 vaccine 07/04/21 R ecorded SARS-CoV-2 (COVID-19) mRNA-1273 vaccine 01/11/21 R ecorded SARS-CoV-2 (COVID-19) mRNA-1273 vaccine 04/04/20 R ecorded SARS-CoV-2 (COVID-19) mRNA-1273 vaccine 03/07/20 R ecorded SARS-CoV-2 mRNA (amzgbsb-jyih-ednea) vax 04/04/20 Recorded Influenza Virus Vaccine (oldterm) 12/06/18 Recorde d tetanus-diphtheria toxoids (Td) 6 10/24/18 Given Zoster Vaccine Live 7 02/08/15 Given tetanus/diphtheria/pertussis, acel(Tdap) 8 03/08/09 Given 1Result Comment: [02/16/2018] done at work 2Result Comment: [12/04/2016] [facility] [id number] 3Result Comment: [04/30/2016] [facility] 4Result Comment: [01/07/2015] Given by employer 5Result Comment: [facility] [id number] 6Result Comment: [facility] [id number] 7Result Comment: [02/08/2015] consent signed. 8Admin Note: done at [facility] services Medications albuterol CFC free 90 mcg/inh inhalation aerosol 2, puffs, Inhalation, 4 times a day, PRN, # 18 Gm, Refills 0, Tot. Refills 0, Maintenance, 06/13/24 10:09:00 AM EDT, Aerosol, Route to Pharmacy Electronically, [id number], [facility], 164, cm, 06/13/24 9:50:00 EDT, Height, 97.7, kg, 12/15/22 14:08:00 EDT, Dry Weight Start Date: 06/13/24 Status: Ordered Quantity: 18.0 Unit: g Repeat [...] Refills, Maintenance, 10/27/23 1:31:00 PM EDT, Cream, [facility], Partial fill upon patient [...] 14 DAYS, # 22 Gm, 0 Refills,Maintenance, 06/13/24 10:09:00 AM EDT, [facility], APPLY TOPICALLY TO AFFECTED AREA TWOTIMES A DAY FOR 14 DAYS, 164, cm, 06/13/24 9:50:00 EDT, Height, 97.7, kg, 12/15/22 14:08:00 EDT, Dry Weight Start Date: 06/13/24 Status: Ordered Quantity: 22.0 Unit: g Repeat [...] Refills, Maintenance, 02/18/24 10:04:00 AM EST, Tablet, [id number], Partial fill upon patient request [...] 11:14:00 AM EDT, Route to Pharmacy Electronically, [facility], Partial fill upon patient request if [...] Insomnia Confirmed Active Overactive bladder Confirmed Active Persistent depressive disorder with anxious distress, currently moderate Confirmed Active Severe obesity (BMI 35.0-39.9) with comorbidity Confirmed Active Sjogrens syndrome Confirmed Active Social History Social History Type Response Tobacco Other: quit 1990. To bacco use times per day: Smoked 1 pack per week. Sex Sex Representation Female (finding) Patient Care team information Care Team Personnel Name: Patel BURNETT, Ramya Jensen Position: [facility] PCO Associate Professional Member Role: Lifetime Consulting Provider Address: [address] [place] [address] [place] [address]- [place] Tele[employer]: Name: Promise Marcum MD Position: [facility] TRADE SALES ASSISTANT Member Role: [employer] TRADE SALES ASSISTANT Physician Address: [address] [facility] [place] [address] [place] Telecom: Name: Jeanie Giron MD Position: [facility] TRADE SALES ASSISTANT Member Role: [employer]etime TRADE SALES ASSISTANT Physician Address: [address] [facility] [place] [address] [place] Telecom: Name: Leonides Lugo MD Position: [facility] Physician - Primary Care Member Role: PCP Address: [address] [place] [address] [address] [place] [address] [employer] Telecom: Care Team Related Persons Name: MARIAM REGAN Insurance Providers Guarantor name: MATIAS REGAN Health Plan Information #: 1 Payer: [employer] [facility] PPO Member Number: NA Policy Number: NA Group Number: [id number]
--- OUTSIDE RECORDS SUMMARY | 2024-06-22 16:33 | XMS_ITS | Data Portability ---
Author Organization [place] [facility] [place] Address [address] [place] [address] Care Team Providers Care Metal Furnace Operator Name Role Phone AMBER DIETRICH Primary Care [...] findings at length with the patient today. ? ? ?We discussed the nature and etiology of this problem along with current treatment options. We discussed the expected course and outcomes and what to expect. We also discussed risks and benefits. ? ? ?All of their questions were answered today, and there was exhibited understanding and comprehension of all that was discussed. 10 minutes were spent reviewing previous imaging and charting. ? ? ?10 minutes were spent obtaining patient history. ? ? ?5 minutes were spent on physical exam. ? ? ?5? ? ?minutes were spent explaining diagnosis and assessment. Today's documentation was made using voice recognition software. This note may contain grammatical errors secondary to the software. Not available 06/18/2022 10:00:05 09/17/2022 09/17/2022 Pleasant 66-year-old female hirye-fshp-[id number] ant chief complaint left shoulder pain overuse [...] findings at length with the patient today. ? ? ?We discussed the nature and etiology of this problem along with current treatment options. We discussed the expected course and outcomes and what to expect. We also discussed risks and benefits. ? ? ? All of their questions were answered today, and there was exhibited understanding and comprehension of all that was discussed. Time Spent: 10 minutes were spent reviewing previous imaging and charting. ? ? ?10 minutes were spent obtaining patient history. ? ? ?5 minutes were spent on physical exam. ? ? ?5? ? ?minutes were spent explaining diagnosis and assessment. Today's [...] None recorded. Surgeries None recorded. Imaging XR, shoulder, 2 or more view 2022 023 [facility], [address], [place], [address], 3 15:22:14 XR, knee, 1 or 2 view - Left Knee Pain 2022 023 [facility], [address], [place], [address], 3 13:02:37 XR, knee, 1 or 2 view - Right Knee Pain 2022 023 [facility], [address], [place], [address], 3 13:02:37 XR, knee, weightbeari ng - Bilateral Knee Pain 2022 023 [facility], [address], [place], [address], 3 13:02:37 Medication Orders Kenalog 40 mg/mL suspension for injection 2022 023 [email or web address] Not available 3 13:57:06 lidocaine (PF) 10 mg/mL (1 %) injection solution 2022 023 [email or web address] Not available 13:57:06 Kenalog 40 mg/mL suspension for injection 2022 023 [facility] 3, [address] [place], [address], 10:01:25 lidocaine (PF) 10 mg/mL (1 %) injection solution 2022 023 [facility] 3, [address] [place], [address], 10:01:24 Patient TargetsNo targets recorded. Patient Instructions Encounter Date Encounter Id Patient Instructions Last Modified By Organization Details Last Modified Time 06/18/2022 [id number] You have been provided with a cortisone [...] the injection. This is called a ? f lare? . To help minimize the chances of this, please see the post-injection instructions above. There is a less than 1% chance of an infection. If you notice any signs of infection (redness, warmth, drainage, fever greater than 100 degrees) please call our office or contact us through the portal Not available 06/18/2022 09:59:11 AP, Guzman, lateral and sunrise view reveals the following; Right knee grade 4 lateral compartment degenerative arthritis with osteophyte formation subchondral sclerosis best visualized Gumzan view, lateral view with moderate patellofemoral joint [...] bony abnormality Not available 06/18/2022 10:01:18 09/17/2022 [id number] You have been provided with a cortisone [...] the injection. This is called a ? f lare? . To help minimize the chances of [...] Time Impingement syndrome of left shoulder region [id number] 04 Active 2022 STORM GOODWIN PA-C [address], [place], [address], [place] [facility], P 13:46:25 Osteoarthri tis of right knee joint [id number] 00 Active 2022 STORM GOODWIN PA-C [address], [place], [address], [place] [facility], P 09:58:36 Problem Notes None recorded. Procedures Surgical History Date Name Laterality Status Provider Name and Address Organization Details Recorded Time 09/18/19 23 Shoulder Joint/Bursa Asp & Inj completed STORM GOODWIN PA-C [address], [place], [address], [place] [facility] 09/17/2022 14:04:09 06/19/19 23 Knee Joint/Bursa Asp & Inj completed STORM GOODWIN PA-C [address], [place], [address], [place] [facility] P 06/18/2022 09:58:04 cholecystectomy completed Jessica Pettit [place] [facility], P 06/18/2022 09:51:11 Hysterectomy completed Jessica Pettit [place] [facility], P 06/18/2022 09:51:19 Tonsillectomy/Adeno idectomy completed Jessica Pettit [facility], P 06/18/2022 09:51:37 Imaging Results None recorded. Procedure Notes None recorded. Medical Equipment None Reported. Allergies Allergen ID Allergen Name Allergen Category Reaction Reaction Severity Criticality Documentation Date Start Date Code Code System Note Provider Name and Address Organization Details Recorded Time 2174 Carafate medicatio n Not available Not available Not available 06/18/2022 91130 3 RxNorm Jessica stuart, [place] [facility], P 09:47:09 2176 clotrimaz ole medicatio n Not available Not available Not available 06/18/2022 2623 RxNorm Jessica Hodan null, [place] [facility] 3 09:47:17 2177 codeine medicatio n Not available Not available Not available 06/18/2022 2670 RxNorm Jessica Hodan null, [place] [facility] 3 09:47:27 2178 SARS-CoV- 2 (COVID-19 ) vaccine, mRNA-1273 medicatio n Not available Not available Not available 06/18/2022 07588 32 RxNorm Jessicajeanie Bridgese null, [place] [facility] 3 09:47:43 2179 erythromy olegario medicatio n Not available Not available Not available 06/18/2022 4053 RxNorm Jessicajeanie Bridgese null, [place] [facility], [facility] 3 09:47:55 2180 esomepraz ole Not available Not available Not available Not available 06/18/2022 26520 2 RxNorm Jessicajeanie Bridgese null, [place] [facility] 3 09:48:05 2181 Keflex medicatio n Not available Not available Not available 06/18/2022 70083 7 RxNorm Jessica Hodan null, [place] [facility] 3 09:48:13 2182 metronida zole medicatio n Not available Not available Not available 06/18/2022 6922 RxNorm Jessica Bridgese null, [place] [facility] 3 09:48:23 2185 omeprazol e medicatio n Not available Not available Not available 06/18/2022 7646 RxNorm Jessica Ingramlie null, [place] [facility] 3 09:48:29 2186 povidone- iodine medicatio n Not available Not available Not available 06/18/2022 8611 RxNorm Jessica Bridgese null, [place] [facility] 3 09:48:39 2187 rabeprazo le medicatio n Not available Not available Not available 06/18/2022 77906 9 RxNorm Jessica stuart, [place] [facility] 3 09:48:47 2189 sulfameth oxazole / trimethop rim medicatio n Not available Not available Not available 06/18/2022 02379 RxNorm Jessica stuart, [place] [facility] 3 09:49:04 2190 Levaquin medicatio n Not available Not available Not available 06/18/2022 01408 2 RxNorm Jessica stuart, [place] [facility] 3 09:49:21 2192 tetracycl ine medicatio n Not available Not available Not available 06/18/2022 88046 RxNorm Jessica stuart, [place] [facility] 3 09:49:33 Medications Name Sig Start [...] Available Not Available Not Avai lable econazole nitrate 1 % topical cream APPLY TOPICALLY TO [...] Not Available No t Available amoxicillin 875 mg-potvanessau m clavulanate 125 mg tablet TAKE 1 TABLET BY MOUTH EVERY 12 HOURS FOR 7 DAYS active Not Available Not Available No t Available lidocaine (PF) 10 mg/mL (1 %) injection solution Take 2 mL by injection route. 2022 active Not Available Not Available Not Avai lable BinaxNOW COVID-19 Ag Self Test kit TEST DIRECTED TODAY 08/25 completed Not Available Not Available Not Available Vitals None Recorded Social History None recorded. Functional Status None recorded. Mental Status None recorded. Family History Relationship Description Onset Age of this Age Resolved Age Notes LastModified by Organization Details LastModified Time Mother Family history of malignant neoplasm [email or web address] Not available 2022 09:50:08 Mother Heart disease [email or web address] Not available 2022 09:50:30 Sister Family history of malignant neoplasm [email or web address] Not available 2022 09:50:08 Father Heart disease [email or web address] Not available 2022 09:50:30 Brother Heart disease [email or web address] Not available 2022 09:50:30 Brother Diabetes mellitus [email or web address] Not available 2022 09:50:46 Brother Hypertensive disorder [email or web address] Not available 2022 09:50:59 Medical History No medical history recorded. Gynecological HistoryNo gynecological history recorded. Obstetrics History GPAL:G 0 P 0 0 0 0 Past Encounters Encounter ID Performer Location Encounter Start Date Encounter Closed Date Diagnosis/Indication Diagnosis SNOMED-CT Code Diagnosis ICD10 Code Diagnosis Note [id number] MD SPIKE [place] [address] [address] 06/18/2022 09:10:50 06/18/2022 09:59:35 Pain of left knee joint 3835280181 05539 M25.562 Pain of bi lateral knee joints 6414962695 23027 M25.561 Pain of ri ght knee joint 7004456016 07388 M25.561 Osteoarthr itis of right knee joint 4695860125 92559 M17.11 [id number] MD SPIKE Hays [facility] [address] [facility] [address] [place] [address] 09/17/2022 13:27:55 09/17/2022 14:02:18 Pain of left shoulder joint 7635916151 7241587 M25.512 Impingemen t syndrome of left shoulder region 5611014751 61175 M75.42 Health Concerns Section Related Observation LastModified by Organization Detai ls LastModified Time None Recorded Concern Status LastModified by Organization Details LastModified Time None Recorded Advance Directives Directive None Recorded Payers Encounter Date Sequence Insurance Name Policy Number Policy Jenkins Covered Member ID Jenkins Member ID Guarantor Name 06/18/2022 1 [facility] [id number] Aliyah Crenshaw [id number] Aliyah Crenshaw 09/17/2022 1 [facility] [id number] [id number] [facility] Notes Date Note Type Note Provider Name [...] knee joint denies any fevers or chills. STORM GOODWIN PA-C [address] [facility] [address], [place], [address], [place] [facility] 06/18/2022 10:02:36 09/17/2022 text/html Very pleasant 66-year-old female nlbgj-eriu-viddejcj chief complaint left shoulder pain at today's visit she describes it is generalized in nature overlying her deltoid with some radiation down the lateral aspect. She denies any injury here for evaluation and treatment. She does states she has a longstanding history of what she describes as polyarthralgia she is seeing another provider for her neck symptoms. STORM GOODWIN PA-C [address] [place] [address], [place], [address], [place] [facility] 09/17/2022 14:06:16 OBGyn Episode No OBEpisode recorded.
--- OUTSIDE RECORDS SUMMARY | 2024-06-22 16:33 | XMS_ITS | Clinical Summary ---
Author Organization [facility] Address [address] [place] [address] Care Team Providers Care Residential Monitor Name Role Phone Leonides Lugo MD Primary Care Provider [phone] Allergies Active Allergy Reactions Criticality Noted Date Comments Sucralfate 10/27/2018 Clotrimazole 10/27/2018 Codeine 10/27/2018 Covid-19 (Mrna) Vaccine Other (See Comments) Moderna Vaccine Erythromycin 10/27/2018 Esomeprazole Other (See Comments) 07/31/2021 Cephalexin 10/27/2018 Levofloxacin Low 10/27/2018 Metronidazole Other (See Comments) 10/27/2018 Omeprazole Other (See Comments) 07/31/2021 Povidone Iodine Other (See Comments) 07/31/2021 Rabeprazole Other (See Comments) 07/31/2021 Seasonal Other (See Comments) 07/31/2021 Sulfamethoxazole-Trimeth oprim 10/27/2018 Tetracycline Other (See Comments) Low 10/27/2018 Medications Medication Sig Dispensed Refills Start Date End Date Status PAIN RELIEF EXTRA STRENGTH 500 MG tablet TAKE 1 TABLET BY MOUTH EVERY 4 HOURS NEEDED FOR PAIN FOR 10 DAYS 1 07/27/2018 Active cholecalciferol (VITAMIN D3) 1000 units tablet Take 1,000 Units by mouth daily. 0 Active Multiple Vitamin (MULTI-VITAMIN DAILY PO) Take by mouth. 0 Active cetirizine (ZyrTEC) 10 MG tablet Take 10 mg by mouth daily. 0 Active albuterol (PROVENTIL HFA;VENTOLIN HFA) 108 (90 Base) MCG/ACT inhaler 0 03/06/2019 Active diazePAM (VALIUM) tablet 5 mg Take 1 tab 60 minutes prior to MRI study. Have somebody drive you to and from study. 1 tablet 0 03/21/2020 Active EPINEPHrine 0.3 MG/0.3ML SOAJ 0 10/18/2020 Active Active Problems Problem Noted Date Diagnosed Date Patellofemoral arthritis of left knee 07/26/2020 Impingement syndrome of right shoulder region Knee stiffness, right 03/17/2019 Right groin pain 12/20/2018 Arthritis of knee, right 10/27/2018 Family History Medical History Relation Name Comments Diabetes Brother Heart disease Brother Hypertension Brother Heart disease Father Cancer Mother Heart disease Mother Cancer Sister Relation Name Status Comments Brother Father Mother Sister Social History Tobacco Use Types Packs/Day Years Used Date Smoking Tobacco: Never Assessed Sex and Gender Information Value Date Recorded Sex Assigned at Not on file Gender Identity Not on file Sexual Orientation Not on file Job Start Date Occupation Industry Not on file Not on file Not on file Last Filed Vital Signs Vital Sign Reading Time Taken Comments Blood Pressure - - Pulse - - Temperature - - Respiratory Rate - - Oxygen Saturation - - Inhaled Oxygen Concentration - - Weight 102.1 kg (225 lb) 07/26/2020 9:19 AM EDT Height 165.1 cm (5' 5 ) 07/26/2020 9:19 AM EDT Body Mass Index 37.44 07/26/2020 9:19 AM EDT Plan of Treatment Health Maintenance Due Date Last Done Comments Hepatitis C Screening 1955 COVID-19 Vaccine (#1) [birth year]1957 Depression Screening 1968 BMI Counseling 1974 Preventative Health Evaluation 1974 Colon Cancer Screening (Colonoscopy) 2001 Breast Cancer Screening (Mammogram) 2006 Shingrix-Zoster Vaccine (1 of 2) 2006 DTap / Tdap / Td (1 - Tdap) 10/25/2018 10/24/2018 Fall Risk Assessment 2021 Osteoporosis Screening (DEXA Scan) 2021 Pneumococcal Vaccine (1 of 1 - PCV) 2021 Influenza Vaccine (#1) 2023 , 12/11/2019, 01/20/2018, Additional history exists RSV Adult > 60+ Yrs or (1 - 1-dose 75+ series) 10/23/2031 Hepatitis B Vaccines Aged Out No long er eligible based on patient's age to complete this topic RSV Ped < 20 months Aged Out No longe r eligible based on patient's age to complete this topic Care Teams Residential Monitor Relationship Specialty Start Date End Date Leonides Lugo MD [address] [place] [address] PCP - General Internal Medicine 01/06/22
--- OUTSIDE RECORDS SUMMARY | 2024-06-22 16:34 | XMS_ITS | Data Portability ---
Author Organization [facility], , [facility] Address [address] [place] [address] Assessment No assessment recorded. Plan of Treatment Reminders Order Date Submit Date Provider Last Modified By Organization Details Last Modified Time Details Appointments None record ed. Lab None record ed. Referral None record ed. Procedures None record ed. Surgeries None record ed. Imaging None record ed. Medication Orders None record ed. Patient TargetsNo targets recorded. Patient InstructionsNo instructions recorded. Reason for Referral None Reported. Results Created Date Observation Date Name Description Value Unit Range Abnormal Flag Note LastModifiedBy Organization Detail LastModifiedTime Result Notes None recorded. Procedures Surgical History Date Name Laterality Status Provider Name and Address Organization Details Recorded Time Jaja Navarro - Colonoscopy completed Slim Navarro MD [address] [place] [address], [phone], [facility] 01/11/2015 12:18:58 Jaja Navarro - EGD completed Slim Navarro MD [address] [place] [address], [phone], [facility] 01/11/2015 12:18:58 Imaging Results None recorded. Procedure Notes None recorded. Medical Equipment None Reported. Medications Name Sig Start Date Stop Date Status Note LastModified by Organization Details LastModified Time cpd-salacid/ta c0.1%/vanicr active Not Available Not Available Not Available clotrimazole 10 mg rajni active Not Available Not Available Not Available nystatin 100,000 unit/mL oral suspension active Not Available Not Available N ot Available prochlorperazi ne maleate 10 mg tablet active Not Available Not Available No t Available lidocaine-pril ocaine 2.5 %-2.5 % topical cream active Not Available Not Availabl e Not Available lorazepam 0.5 mg tablet active Not Available Not Available No t Available hydrocortisone -acetic acid 1 %-2 % ear drops active Not Available Not Available Not Available lansoprazole 30 mg capsule,delaye d release active Not Available Not Available No t Available mupirocin calcium 2 % topical cream active Not Available Not Availabl e Not Available betamethasone dipropionate 0.05 % topical cream active Not Available Not Available Not Available bisacodyl 5 mg tablet,delayed release active Not Available Not Available Not Available mupirocin 2 % topical ointment APPLY TO AFFECTED AREA 3 TIMES A DAY FOR 7 DAYS active Not Available Not Available No t Available fluticasone propionate 50 mcg/actuation nasal spray,suspensi on active Not Available Not Available Not Available Finacea 15 % topical gel active Not Available Not Available Not Available peg 3350-electroly dario 236 gram-22.74 gram-6.74 gram-5.86 gram solution active Not Available Not Available Not Available desoximetasone 0.05 % topical ointment active Not Available Not Available Not Available Soolantra 1 % topical cream active Not Available Not Availabl e Not Available Vitals None Recorded Social History None recorded. Functional Status None recorded. Mental Status None recorded. Family History Nothing Reported. Medical History No medical history recorded. Gynecological HistoryNo gynecological history recorded. Obstetrics History GPAL:G 0 P 0 0 0 0 Past Encounters Encounter ID Performer Location Encounter Start Date Encounter Closed Date Diagnosis/Indication Diagnosis SNOMED-CT Code Diagnosis ICD10 Code Diagnosis Note [id number] Pauline Morse [facility], [address] [address] 01/11/2015 10:07:57 01/11/2015 13:27:25 Health Concerns Section Related Observation LastModified by Organization Detai ls LastModified Time None Recorded Concern Status LastModified by Organization Details LastModified Time None Recorded Advance Directives Directive None Recorded Payers Encounter Date Sequence Insurance Name Policy Number Policy Jenkins Covered Member ID Jenkins Member ID Guarantor Name 01/11/2015 1 [facility] ([facility] [id number] Aliyah Crenshaw [id number] Aliyah Crenshaw OBGyn Episode No OBEpisode recorded.
--- OUTSIDE RECORDS SUMMARY | 2024-06-22 16:34 | XMS_ITS | Continuity of Care Document ---
Author Organization [facility] Address [address] [place] [address]- Care Team Providers Care Metal Finisher Name Role Phone Leonides Lugo MD Primary Care Physician [phone] Encounter [facility] Date(s): 05/20/24 - 06/19/24 [facility] [address] [place] [address]- Attending Physician: Gunnar Melgoza Admitting Physician: Admtr, Ar8 Referring Physician: Admtr, Ar8 Encounter Type: Triage Allergies, Adverse Reactions, Alerts Substance Criticality Severity Reaction Reaction Severity Status codeine crawling feelin g Itching of skin Active azithromycin Vomiting Active doxycycline red face Headache Active tetracycline red face Headache Active sulfa drugs Hives Active erythromycin Hives Active omeprazole heart palpitations Active clotrimazole hives Active Keflex Red face 13-MAY-2013 07:18:10<$> Active [...] virus vaccine, inactivated 12/22/13 Give n SARS-CoV-2(COVID-19)mRNA-LNP vac(cgw207) 12/28/22 Recorded pneumococcal 20-valent conjugate vaccine 5 06/05/22 Given SARS-CoV-2 (COVID-19) mRNA-1273 vaccine 07/04/21 R ecorded SARS-CoV-2 (COVID-19) mRNA-1273 vaccine 01/11/21 R ecorded SARS-CoV-2 (COVID-19) mRNA-1273 vaccine 04/04/20 R ecorded SARS-CoV-2 (COVID-19) mRNA-1273 vaccine 03/07/20 R ecorded SARS-CoV-2 mRNA (hxaetdv-ptex-qfbyi) vax 04/04/20 Recorded Influenza Virus Vaccine (oldterm) 12/06/18 Recorde d tetanus-diphtheria toxoids (Td) 6 10/24/18 Given Zoster Vaccine Live 7 02/08/15 Given tetanus/diphtheria/pertussis, acel(Tdap) 8 03/08/09 Given 1Result Comment: [02/16/2018] done at work 2Result Comment: [12/04/2016] [facility] [phone] 3Result Comment: [04/30/2016] [facility] 4Result Comment: [01/07/2015] Given by employer 5Result Comment: [facility] [id number] 6Result Comment: [facility] [phone] 7Result Comment: [02/08/2015] consent signed. 8Admin Note: done at [facility] services Medications albuterol CFC free 90 mcg/inh inhalation aerosol 2, puffs, Inhalation, 4 times a day, PRN, # 18 Gm, Refills 0, Tot. Refills 0, Maintenance, 06/13/24 10:09:00 AM EDT, Aerosol, Route to Pharmacy Electronically, [id number], [facility], 164, cm, 06/13/24 9:50:00 EDT, Height, [...] Refills, Maintenance, 10/27/23 1:31:00 PM EDT, Cream, [facility], Partial fill upon patient request [...] Gm, 0 Refills,Maintenance, 06/13/24 10:09:00 AM EDT, [facility], APPLY TOPICALLY TO AFFECTED [...] Refills, Maintenance, 02/18/24 10:04:00 AM EST, Tablet, [id number], Partial fill upon patient request if [...] AM EDT, Route to Pharmacy Electronically, [facility], Partial fill upon patient [...] Team Personnel Name: Ramya Sweeney NP Position: [facility] PCO Associate Professional Member Role: Lifetime Consulting Provider Address: [address] [place] [address] [facility] [address] Telecom: Name: Promise Marcum MD Position: [facility] PROCESS SERVER Member Role: Lifetime PROCESS SERVER Physician Address: [address] [facility] [address] [place], [place] [address] Telecom: Name: Jeanie Giron MD Position: [facility] PROCESS SERVER Member Role: Lifetime PROCESS SERVER Physician Address: [address] [facility] [address] [place], [place] [address] Telecom: Name: Leonides Lugo MD Position: [facility] Physician - Primary Care Member Role: PCP Address: [address] [place] [address] [address] [place] [address]- Telecom: Care Team Related Persons Name: MARIAM REGAN Insurance Providers Guarantor name: MATIAS REGAN Health Plan Information #: 1 Payer: AMANDA [facility] PPO Member Number: NA Policy Number: NA Group Number: [id number]
--- OUTSIDE RECORDS SUMMARY | 2024-06-22 16:34 | XMS_ITS | Data Portability ---
Author Organization [facility] Luis Enrique Méndez Nhsara [facility] Address [address] [place] [address] Care Team Providers Care Rubber Press Operator Name Role Phone IGOR DIETRICHSARAHICHELLE Primary Care Provider Assessment No assessment recorded. Plan of Treatment Reminders Order Date Submit Date Provider Last Modified By Organization Details Last Modified Time Details Appointments None record ed. Lab None record ed. Referral None record ed. Procedures None record ed. Surgeries None record ed. Imaging XR, knee, 4 or more view - room 218 lt knee 4v rena 025 06/10/19 25 [email or web address] [facility], [address], [place], [address], 5 14:36:16 Medication Orders None record ed. Patient TargetsNo targets recorded. Patient InstructionsNo instructions recorded. Reason for Referral None Reported. Results Created Date Observation Date Name Description Value Unit Range Abnormal Flag Note LastModifiedBy Organization Detail LastModifiedTime 06/10/19 25 06/09/2024 XR, knee, 4 or more view http:/ [email or web address] ?Encry pted=s hAaTro YD8dLq bEUv6g %2BXZw aYqtaq 0bqfl% 2Fg9IQ a4ajBk vP9nXo QUaueC m3YtLR FvZlgJ JJ8mAn HZtai3 5n8428 AC0KqY 3%2BGW aSiKiQ trMwF INTERFACE [facility] [address], [place], [address], 06/09/2024 13:28:46 06/10/1906/09/2024 XR, knee, 4 or more view [email or web address] ?Encry pted=s Ronnie YD8dLq bEUv6g %2BXZw aYqtaq 0bqfl% 2Fg9IQ a4ajBk vP9nXo QUaueC m3YtLR FvZlgJ JJ8mAn HZtai3 6m2324 AC0KqY 3%2BGW aSiKiQ trMwF INTERFACE [facility] [address], [place], [address], 06/09/2024 13:28:48 Result Notes None recorded. Problems Name Problem SNOMED Code Status Onset Date Resolution Date Notes Provider Name and Address Organization Details Recorded Time No complaints 479507445 Active Status : 'A'; Not Available [facility] 4 09:18:51 Pain of right knee joint 0709781200207 00 Active 2024 madison heydi [facility] 5 13:17:36 Pain of knee region 8904595365 Active 2024 [facility] 5 13:18:24 Problem Notes None recorded. Procedures Surgical History Date Name Laterality Status Provider Name and Address Organization Details Recorded Time 06/09/2024 Sports Knee 4&1 completed Osmar Manzanares PA-C [address], [place], [address], [facility] 06/09/2024 14:34:32 Imaging Results Imaging Date Name Status LastModified by Organiz ation Details LastModified Time 06/09/2024 XR, knee, 4 or more view completed INTERFACE [facility] [address], [place], [address], 06/09/2024 13:28:46 06/09/2024 XR, knee, 4 or more view completed INTERFACE [facility] [address], [place], [address], 06/09/2024 13:28:48 Procedure Notes None recorded. Medical Equipment None Reported. Allergies Allergen ID Allergen Name Allergen Category Reaction Reaction Severity Criticality Documentation Date Start Date Code Code System Note Provider Name and Address Organization Details Recorded Time 644859 codeine medicatio n Not available Not available Not available 06/09/2024 2670 RxNorm [place] heydi stuart [place] [facility] 5 13:16:44 64269 tetracycl ine hydrochlo ride medicatio n Not available Not available Not available 05/10/20232004 50630 6 RxNorm Aller gyRea ction : 'Skin React ion'; Not Available [facility] 14:47:31 64957 Substance with sulfonami de structure and antibacte rial mechanism of action (substanc e) medicatio n Not available Not available Not available 05/10/20232004 93918 8003 SNOMED Aller gyRea ction : 'Skin React ion'; Not Available [facility] 4 14:47:31 86518 erythromy olegario medicatio n Not available Not available Not available 05/10/20232004 4053 RxNorm Aller gyRea ction : 'Skin React ion'; Not Available [facility] 4 14:47:31 15962 Keflex medicatio n Not available Not available Not available 05/10/20232004 55059 7 RxNorm Aller gyRea ction : 'Skin React ion'; Not Available [facility] 4 14:47:31 30163 Medicinal product acting as adhesive (product) environme nt,medica tion Not available Not available Not available 05/10/20232014 73793 2009 SNOMED Not Available [facility] 4 14:47:31 54877 doxycycli ne hyclate medicatio n Not available Not available Not available 05/10/20232014 78620 RxNorm Not Available [facility] 14:47:31 Medications Name Sig Start Date Stop Date Status Note LastModified by Organization Details LastModified Time nystatin 100,000 unit/mL oral suspension TAKE 1 TEASPOONF UL BY MOUTH 4 TO 5 TIMES PER DAY, RINSE FOR 2 MINUTES AND SPIT OUT active Not Available Not Available No t Available desoximetas one 0.05 % topical cream APPLY A THIN FILM TOPICALLY 2 TIMES A DAY NEEDED 06/09 completed Not Available Not Available Not Available Lidocaine Viscous 2 % mucosal solution GARGLE WITH 10 TO 15ML UP TO EVERY 3 HOURS NEEDED FOR SORE THROAT PAIN active Not Available Not Available No t Available ofloxacin 0.3 % eye drops INSTILL 1 DROP INTO THE LEFT EYE 4 TIMES A DAY FOR 7 DAYS 06/09 completed Not Available Not Available Not Available prednisone 20 mg tablet TAKE 1 TABLET BY MOUTH EVERY DAY WITH FOOD OR MILK 06/09 completed Not Available Not Available Not Available betamethaso ne, augmented 0.05 % topical cream APPLY A THIN LAYER TO ECZEMA ON TRUNK/EXT REMITIES 2 TIMES A DAY NEEDED. CAN USE FOR 1 TO 2 WEEKS, THEN TAKE 1 WEEK OFF. CAN REPEAT AFTER OFF WEEK. 06/09 completed Not Available Not Available Not Available Zyrtec 10 mg tablet Take 1 tablet every day by oral route. active Not Available Not Available No t Available amoxicillin 875 mg tablet TAKE 1 TABLET BY MOUTH EVERY 12 HOURS FOR 5 DAYS 06/09 completed Not Available Not Available Not Available trazodone 100 mg tablet TAKE 1 TABLET BY MOUTH EVERY DAY AT BEDTIME active Not Available Not Available No t Available doxycycline monohydrate 100 mg capsule TAKE 1 CAPSULE BY MOUTH TWO TIMES A DAY WITH FOOD AND WATER. (AVOID DAIRY/FANTASMA CIUM/LISA MIN/DON'' T LAY FLAT AFTER TAKING). 06/09 completed Not Available Not Available Not Available mupirocin 2 % topical ointment APPLY TOPICALLY TO AFFECTED AREA TWO TIMES A DAY FOR 14 DAYS 06/09 completed Not Available Not Available Not Available albuterol sulfate HFA 90 mcg/actuati on aerosol inhaler INHALE 2 PUFFS EVERY 4 HOURS NEEDED FOR WHEEZING 06/09 completed Not Available Not Available Not Available sertraline 50 mg tablet TAKE 1 TABLET BY MOUTH EVERY DAY active Not Available Not Available No t Available amoxicillin 875 mg-potassiu m clavulanate 125 mg tablet TAKE 1 TABLET BY MOUTH EVERY 12 HOURS FOR 7 DAYS 06/09 completed Not Available Not Available Not Available Multivitami n 50 Plus tablet Take by oral route. active Not Available Not Available No t Available Tums Tums 500MG Tablet Chewable 05/23 completed Statu s: 'Disc ontin ued'; Not Available Not Available Not Available Vitamin D3 active Not Available Not Av ailable Not Available sodium,pota ssium,mag sulfates 17.5 gram-3.13 gram-1.6 gram oral soln TAKE 354 ML BY MOUTH FOR COLONOSCO PY PREP active Not Available Not Available No t Available ivermectin 1 % topical cream APPLY ONCE DAILY TO FACE 06/09 completed Not Available Not Available Not Available Qvar RediHaler 80 mcg/actuati on HFA breath activated aerosol INHALE 1 PUFF BY MOUTH TWO TIMES A DAY. RINSE MOUTH AND THROAT AFTER USE. 06/09 completed Not Available Not Available Not Available Vitals Date Recorded Body height Body mass index (BMI) Body weight Provider Name and Address Organization Details Last Updated DateTime 06/09/2024 165.1 cm 34.8 kg/m2 82709.81 g [facility] 06/09/2024 13:16:15 Social History None recorded. Functional Status None recorded. Mental Status None recorded. Family History Nothing Reported. Medical History No medical history recorded. Gynecological HistoryNo gynecological history recorded. Obstetrics History GPAL:G 0 P 0 0 0 0 Past Encounters Encounter ID Performer Location Encounter Start Date Encounter Closed Date Diagnosis/Indication Diagnosis SNOMED-CT Code Diagnosis ICD10 Code Diagnosis Note [id number] BERNARDO [facility] [address] [place] [address] 06/09/2024 13:01:16 06/09/2024 14:35:08 Pain of knee region 4845561820 M25.562 Osteoarthr itis of left knee joint 6152659434 98810 M17.12 Synovial p opliteal cyst of left knee 0135493748 M71.22 Health Concerns Section Related Observation LastModified by Organization Detai ls LastModified Time None Recorded Concern Status LastModified by Organization Details LastModified Time None Recorded Advance Directives Directive None Recorded Payers Encounter Date Sequence Insurance Name Policy Number Policy Jenkins Covered Member ID Jenkins Member ID Guarantor Name 06/09/[address] [facility] [id number] Aliyah Crenshaw [id number] Aliyah Crenshaw Notes Date Note Type Note Provider Name and Address Organization Details Recorded Time 06/09/2024 text/html I am seeing the patient today under the supervision of Dr. Alarcon who was available but who did not see the patient. HPI:Patient is a 68-year-old female who presents to the office today with complaint of left knee pain as well as posterior knee swelling. This has been going on for years in terms of her pain but the swelling has been present over the last couple of months. No specific inciting events or injuries. Only has real increased pain with going up and down stairs. Has tried multiple cortisone injections in the past with most recent one being in 2022. Does utilize ibuprofen on an as needed basis. Did have a recent ultrasound done which was negative for DVT. Did show Hardy's cyst. Past family, medical, social history and review of systems has been reviewed, updated and is located in the patient? s chart. Examination: Well-appearing 68-year-old female in no acute distress. She is alert and oriented x 3. Ambulates with an antalgic gait. Left knee reveals no erythema, warmth, ecchymosis, swelling. There is fullness in the posterior aspect of the knee. There is some tenderness over the medial joint line as well as the lateral joint line. There is patellar crepitance. Range of motion from 0-125 degrees. There is laxity of the lateral ligament. No medial sided laxity. Knee strength 5/5 against resistance with flexion and extension. Negative Radha test. Negative Neha's maneuver. Calf is soft and nontender. 4 views of the left knee obtained and independently reviewed in the office today reveals joint space narrowing of both medial and lateral joint compartments. There is evidence of subchondral sclerosis as well as osteophyte affirmation. Severe degenerative changes noted of the patellofemoral joint especially the lateral patellar facet with lateral patellar tilt. Impression:{{Left* R ight Bi-lateral}} Knee osteoarthritis with Hardy's cyst Plan:In regards to her Hardy's cyst discussed with the patient that it is usually a result of the arthritic changes that she has present in her knee. In regards to her regular arthritis has not had conservative management with a cortisone in the last couple of years. She is interested in trying another injection today. Please see procedure note for injection. Encourage the patient to continue with home exercise program, ibuprofen as needed for pain relief as well as icing and elevating both the anterior and posterior aspects of the knee. Follow-up as needed. All patient questions and concerns were answered today. injection today. Osmar Manzanares PA-C [address] [facility] [address], [place], [address], [facility] 06/09/2024 14:35:05 OBGyn Episode No OBEpisode recorded.
--- OUTSIDE RECORDS SUMMARY | 2024-06-22 16:34 | XMS_ITS | Patient Health Record ---
Author Organization [facility] Address [address] [facility] [place] [address] Care Team Providers Care Development Assistant Name Role Phone Parish H[facility], [facility] Primary Care Provider Kyleigh Jerry Strickland Unavailable [phone] Allergies Allergen (clinical drug ingredient) Drug/Non Drug [...] W/U Status Risk Notes Problem Interstitial myositis (04369177) Interstitial myositis of right foot (M60.171) Active confirmed Plan Of Treatment Pending Test Test Name Order Date X ray : Foot, right 3V 01/02/2020 X ray : Foot, right 3V 11/22/2020 X ray : Foot, right 3V 10/14/2022 Insurance Providers Payer Name Payer Address Payer Phone Subscriber Number Group Number Insured Name Patient Relationship to Insured Coverage Start Date Coverage End Date [facility] [address] [facility] [place] [phone] [id number] Aliyah Crenshaw Self - patient is [...]
--- OUTSIDE RECORDS SUMMARY | 2024-06-22 16:34 | XMS_ITS | Continuity of Care Document ---
Author Organization [facility] Adult Address [address] [place] [address]- Care Team Providers Care Aircraft Parts Assembler Name Role Phone Leonides Lugo MD Primary Care Physician Encounter [facility] [place](s): 06/13/24 - 06/20/[address] [address]- Encounter Diagnosis RLQ abdominal pain(Discharge Diagnosis) - 06/13/24 Attending Physician: Leonides Lugo MD Encounter Type: [...] virus vaccine, inactivated 12/22/13 Give n SARS-CoV-2(COVID-19)mRNA-LNP vac([id number]) 12/28/22 Recorded pneumococcal 20-valent conjugate vaccine 5 06/05/22 Given SARS-CoV-2 (COVID-19) mRNA-1273 vaccine 07/04/21 R ecorded SARS-CoV-2 (COVID-19) mRNA-1273 vaccine 01/11/21 R ecorded SARS-CoV-2 (COVID-19) mRNA-1273 vaccine 04/04/20 R ecorded SARS-CoV-2 (COVID-19) mRNA-1273 vaccine 03/07/20 R ecorded SARS-CoV-2 mRNA (oesbgrw-cgyf-celoo) vax 04/04/20 Recorded Influenza Virus Vaccine (oldterm) 12/06/18 Recorde d tetanus-diphtheria toxoids (Td) 6 10/24/18 Given Zoster Vaccine Live 7 02/08/15 Given tetanus/diphtheria/pertussis, acel(Tdap) 8 03/08/09 Given 1Result Comment: [02/16/2018] done at work 2Result Comment: [12/04/2016] [facility] [id number] 3Result Comment: [04/30/2016] [facility] 4Result Comment: [01/07/2015] Given by employer 5Result Comment: [facility] [id number] 6Result Comment: [facility] [id number] 7Result Comment: [02/08/2015] consent signed. 8Admin Note: done at [facility] services Medications albuterol CFC free 90 mcg/inh inhalation aerosol 2, puffs, Inhalation, 4 times a day, PRN, # 18 Gm, Refills 0, Tot. Refills 0, Maintenance, 06/13/24 10:09:00 AM EDT, Aerosol, Route to Pharmacy Electronically, [id number], [facility], 164, cm, 06/13/24 9:50:00 [...] Refills, Maintenance, 10/27/23 1:31:00 PM EDT, Cream, [facility], Partial fill upon patient [...] Gm, 0 Refills,Maintenance, 06/13/24 10:09:00 AM EDT, [facility], APPLY TOPICALLY TO AFFECTED [...] Refills, Maintenance, 02/18/24 10:04:00 AM EST, Tablet, [id number], Partial fill upon patient request [...] 11:14:00 AM EDT, Route to Pharmacy Electronically, [facility], Partial fill upon patient [...] Condition Confirmation Course Effective Dates Status Health atus Informant Ventura's esophagus Confirmed Active Samantha's thyroiditis Confirmed Active Insomnia Confirmed Active Overactive bladder Confirmed Active Persistent depressive disorder with anxious distress, currently moderate Confirmed Active Severe obesity (BMI 35.0-39.9) with comorbidity Confirmed Active Sjogrens syndrome Confirmed Active Diagnosis Diagnosis Type Effective Dates Health Status inical Service Informant RLQ abdominal pain Discharge Diagnosis 06/13/24 Vital Signs Most recent to oldest [Reference Range]: 1 Height 164 cm (06/13/24 9:50 AM) Weight 98.2 kg (06/13/24 9:50 AM) Oxygen Saturation [94-100 %] 97 % (06/13/24 9:50 AM) Pulse Rate [55-90 bpm] 76 bpm (06/13/24 9:50 AM) Body Mass Index [18.5-24.99 kg/m2] 36.51 kg/m2 *>HHI* (06/13/24 9:50 AM) Blood Pressure [90-138/55-84 mm Hg] 113/ 73mm Hg (06/13/24 9:50 AM) Mode of Delivery (Oxygen) Room air (06/13/24 9:50 AM) Blood pressure sites Arm, left (06/13/24 9:50 AM) Weight Obtained Via Standing scale (06/13/24 9:50 AM) Social History Social History Type Response Tobacco Other: quit 1990. To bacco use times per day: Smoked 1 pack per week. Sex Sex Representation Female (finding) Note * Burinskas , Junaid: PERFORM Event Display: Patient Education/Instruction Authored Date: [id number] Ambulatory Adult Visit Summary [facility] [address] [place] [address] Name: MATIAS REGAN : 1955?? Visit: 06/13/2024 09:48?? Ambulatory Visit Instructions ?? Your Care Team Primary Care Provider Leonides Lugo MD? This Visit Provider Leonides Lugo MD Vitals Signs Pulse Rate: 76 bpm Height: 164 cm Systolic Blood Pressure: 113 mm Hg Weight: 98.2 kg Diastolic Blood Pressure: 73 mm Hg Body Mass Index:??36.51 kg/m2??Critical Oxygen Saturation: 97 % Body surface area: 2.12 What to do next Scheduled Follow-Up Appointments 2024 9:00 AM EDT ?? With: Pepper Gupta [facility]: [facility] Status: Pending 2024 10:45 AM EDT ?? With: Leonides Lugo MD Where: [facility] [address] [place] [address]- Status: Pending Wednesday 8:30 AM EDT ?? With: Dora Kwon MD Where: [facility] [address], [address] [place] [address]- Status: Pending Wednesday 7:30 AM EDT ?? Where: [facility] Endoscopy Center Status: Pending Wednesday 9:00 AM EDT ?? Where: [facility] Radiology [facility] [address] [place] [address]- Status: Pending Medications The list below reflects [...] as needed for as needed for wheezing Pickup at [facility] 3 Unchanged Beclomethasone (Qvar Redihaler 40 mcg/ inh inhalation aerosol) 1 puff(s) Inhalation Twice a day as needed for Wheezing/Shortness of Breath Unchanged Betamethasone Topical (betamethasone topical dipropionate, augmented 0.05% cream) 50 Gm, 0 Refill(s), APPLY A THIN LAYER TO ECZEMA ON TRUNK/ EXTREMITIES 2 TIMES A DAY NEEDED. CANUSE FOR 1 TO 2 WEEKS, THEN TAKE 1 WEEK OFF. CAN REPEAT AFTER OFF WEEK. ?? Unchanged Cetirizine (ZyrTEC 10 mg oral tablet) 1 tab(s) Oral Daily as needed for for allergy symptoms Unchanged Cholecalciferol (Vitamin D3 Gummies) Oral Daily Unchanged Desoximetasone Topical (desoximetasone 0.05% topical cream) See instructions Apply a thin film topically 2 times a day, As needed for Other ?? Unchanged Multivitamin 1 tab Oral Daily in the morning Unchanged Mupirocin Topical (mupirocin 2% topical ointment) See instructions APPLY TOPICALLY TO AFFECTED AREA TWO TIMES A DAY FOR 14 DAYS ?? Pickup at [facility] 3 Unchanged Sertraline (sertraline 50 mg oral tablet) 1 tab(s) Oral Daily Unchanged Trazodone (traZODone 100 mg oral tablet) 1 tab(s) Oral Daily at Bedtime Pharmacy Information [facility] 3: [address], [place] [id number] [phone] Medications and Immunizations Administered Medications Given During [...] are strongly encouraged to quit. Please call [facility] at [phone] or [phone]) or log in to [email or web address] for referrals to smoking cessation programs. ?? The National Suicide Prevention Hotline is available 28/09 if you or someone you know needs to find a reason to keep living. By calling 7-253-404-[facility] (7370) you'll be connected to a skilled, trained counselor at a crisis center in your area. [facility] Portal You can view and manage your care through the patient portal or by using a health care yeni of your choosing. [employer] is a website that allows you to securely view your medical information including your hospital discharge summary, office visit summaries, medications and follow-up visits. You can also request appointments, renew medications, and request access to your medical information using a health care yeni of your choosing, or just ask a question. You can enroll at [email or web address] or register during your next office visit. [facility], in keeping with [facility] guidance, no longer requires face masks [...] primary care provider, you may find a [facility] provider by calling [facility] Link at [phone]. Patient Care team information Care Team Personnel Name: Ramya Sweeney NP Position: [facility] PCO Associate Professional Member Role: Lifetime Consulting Provider Address: [address] [place] [address] [place] [address]- [employer]: Name: Promise Marcum MD Position: [facility] OFFICE COMMUNICATION PROFESSOR MD Member Role: [employer] OFFICE COMMUNICATION PROFESSOR Physician Address: [address] [place] [address] [place] [address] [employer]: Name: Jeanie Giron MD Position: [facility] OFFICE COMMUNICATION PROFESSOR Member Role: [employer] OFFICE COMMUNICATION PROFESSOR Physician Address: [address] [place] [address] [place] [address] [employer]: Name: Leonides Lugo MD Position: [facility] Physician - Primary Care Member Role: PCP Address: [address] [place] [address]- Telecom: Care Team Related Persons Name: MARIAM REGAN Insurance Providers Guarantor name: MATIAS JASS Health Plan Information #: 1 Payer: [facility] PPO Member Number: [id number] Policy Number: NA Group Number: [id number] Health Plan Information #: 2 Payer: [facility] PPO Member Number: [id number] Policy Number: NA Group Number: [id number]
[2024-07-14 14:09] VITALS: BMI 36.3
--- NOTE | 2024-07-17 14:05 | P.CONAN_ITS ---
Documented by User: Tracie Rod NP 07/17/24 14:05 HPI - Anesthesia Eval Consult details Narrative: 68yo F for Upper Endoscopy and Colonoscopy PMFSH Active Problems Active Problems: All Active Problems Pre-op examination (Acute) Family history of colon cancer in mother (Acute) Localized swelling, mass and lump, left lower limb (Acute) Localized swelling of right lower extremity (Acute) 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 (Acute) Multiple drug allergies (Acute) GERD (gastroesophageal reflux disease) (Acute) Depression (Acute) Overactive bladder (Acute) Sjogrens syndrome (Acute) Samantha's thyroiditis (Acute) Obesity (Acute) Asthma (Acute) Trochanteric bursitis, right hip (Acute) Past Medical History Medical History (Updated 07/14/24 @ 14:07 by Christina Fontaine RN) Overactive bladder Sjogrens syndrome Samantha's thyroiditis Barretts esophagus Depression Asthma GERD (gastroesophageal reflux disease) History of ovarian cancer Family History Family History (Reviewed 08/27/23 @ 09:50 by Priyanka Overton [facility]) Mother Stomach cancer MALT lymphoma Paternal Aunt Pancreatitis Family/Other Colorectal cancer Surgical History Surgical History H/O bilateral oophorectomy History of thyroglossal duct cyst removal Hx of tonsillectomy History of tubal ligation History of cholecystectomy H/O esophagogastroduodenoscopy H/O colonoscopy Social History Social History Are you a primary insurance healthcare consultant to a significant other at home: No Do you presently have visiting nurse or other home services: No Patient Tobacco Use Status: Former Tobacco user Use of substances other than those prescribed or required for medical reasons: No Have you been hit, kicked, punched, or otherwise hurt by someone within the past year? 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 Allergies Allergy/AdvReac Type Severity Reaction Status Date / Time erythromycin base Allergy Severe Hives Verified 02/25/24 08:59 Sulfa (Sulfonamide Allergy Severe Hives Verified 02/25/24 08:59 Antibiotics) azithromycin Allergy Unknown redness, Verified 02/25/24 08:59 sensative cephalexin [From Keflex] Allergy Unknown Unknown Verified 02/25/24 08:59 clotrimazole Allergy Unknown sensativity Verified 02/25/24 08:59 codeine Allergy Unknown Hives Verified 02/25/24 08:59 esomeprazole [From Nexium] Allergy Unknown Unknown Verified 02/25/24 08:59 levofloxacin [From Levaquin] Allergy Unknown Unknown Verified 02/25/24 08:59 metronidazole Allergy Unknown sensativity Verified 02/25/24 08:59 omeprazole Allergy Unknown Unknown Verified 02/25/24 08:59 povidone-iodine [Betadine] Allergy Unknown sensitivity Verified 02/25/24 08:59 rabeprazole [From AcipHex] Allergy Unknown Unknown Verified 02/25/24 08:59 soap [Betadine] Allergy Unknown sensativity Verified 02/25/24 08:59 sucralfate [Carafate] Allergy Unknown sensativity Verified 02/25/24 08:59 tetracycline Allergy Unknown Unknown Verified 02/25/24 08:59 Home Medications ?Medication ?Instructions ?Recorded ?Confirmed ?Last Taken ?Type cetirizine 1 mg/mL oral solution 5 mg PO DAILY 08/27/23 Unknown History cholecalciferol (vitamin D3) 50 50 mcg PO DAILY 08/27/23 Unknown History mcg (2,000 unit) capsule multivitamin 1 tab PO DAILY 08/27/23 Unknown History turmeric root extract 150 tab PO 08/27/23 Unknown History mg-annita root extract 25 mg chewable tablet betamethasone, augmented 0.05 % 1 appl topical BID 01/21/24 Unknown History topical cream desoximetasone 0.05 % topical cream appl topical BID 01/21/24 Unknown History mupirocin 2 % topical ointment 1 appl topical BID-TID 01/21/24 Unknown History Exam Height,Weight and Vital Signs: Height 5 ft 5 in Weight 98.883 kg Assessment and Plan Assessment Anesthesia Assessment: Chart Reviewed Documented by User: Antwan Corona MD 07/18/24 09:55 [facility] Past Medical History Medical History (Updated 07/14/24 @ 14:07 by Christina Fontaine RN) Overactive bladder Sjogrens syndrome Samantha's thyroiditis Barretts esophagus Depression Asthma GERD (gastroesophageal reflux disease) History of ovarian cancer Family History Family History (Reviewed 08/27/23 @ 09:50 by Priyanka Overton [facility]) Mother Stomach cancer MALT lymphoma Paternal Aunt Pancreatitis Family/Other Colorectal cancer Family history of problems with anesthesia: No Surgical History Surgical History H/O bilateral oophorectomy History of thyroglossal duct cyst removal Hx of tonsillectomy History of tubal ligation History of cholecystectomy H/O esophagogastroduodenoscopy H/O colonoscopy History of Problems with Anesthesia: No Social History Social History Are you a primary insurance healthcare consultant to a significant other at home: No Do you presently have visiting nurse or other home services: No Patient Tobacco Use Status: Former Tobacco user Use of substances other than those prescribed or required for medical reasons: No Have you been hit, kicked, punched, or otherwise hurt by someone within the past year? 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 Allergies Allergy/AdvReac Type Severity Reaction Status Date / Time erythromycin base Allergy Severe Hives Verified 02/25/24 08:59 Sulfa (Sulfonamide Allergy Severe Hives Verified 02/25/24 08:59 Antibiotics) azithromycin Allergy Unknown redness, Verified 02/25/24 08:59 sensative cephalexin [From Keflex] Allergy Unknown Unknown Verified 02/25/24 08:59 clotrimazole Allergy Unknown sensativity Verified 02/25/24 08:59 codeine Allergy Unknown Hives Verified 02/25/24 08:59 esomeprazole [From Nexium] Allergy Unknown Unknown Verified 02/25/24 08:59 levofloxacin [From Levaquin] Allergy Unknown Unknown Verified 02/25/24 08:59 metronidazole Allergy Unknown sensativity Verified 02/25/24 08:59 omeprazole Allergy Unknown Unknown Verified 02/25/24 08:59 povidone-iodine [Betadine] Allergy Unknown sensitivity Verified 02/25/24 08:59 rabeprazole [From AcipHex] Allergy Unknown Unknown Verified 02/25/24 08:59 soap [Betadine] Allergy Unknown sensativity Verified 02/25/24 08:59 sucralfate [Carafate] Allergy Unknown sensativity Verified 02/25/24 08:59 tetracycline Allergy Unknown Unknown Verified 02/25/24 08:59 Home Medications ?Medication ?Instructions ?Recorded ?Confirmed ?Last Taken ?Type cetirizine 1 mg/mL oral solution 5 mg PO DAILY 08/27/23 Unknown History cholecalciferol (vitamin D3) 50 50 mcg PO DAILY 08/27/23 Unknown History mcg (2,000 unit) capsule multivitamin 1 tab PO DAILY 08/27/23 Unknown History turmeric root extract 150 tab PO 08/27/23 Unknown History mg-annita root extract 25 mg chewable tablet betamethasone, augmented 0.05 % 1 appl topical BID 01/21/24 Unknown History topical cream desoximetasone 0.05 % topical cream appl topical BID 01/21/24 Unknown History mupirocin 2 % topical ointment 1 appl topical BID-TID 01/21/24 Unknown History Exam Airway Mallampati Class: II TM Dist: <=3cm Neck ROM: Full Loose/Missing/Broken Teeth: No Heart: ok Lungs: ok Assessment and Plan Assessment Anesthesia Assessment: Anesthesia Plan Discussed Final Anesthetic Review Family History of Problems with Anesthesia: No History of Problems with Anesthesia: No NPO: Yes ASA Class: III Final Preanesthetic Review: No Changes in Pt Med Stat, Meds/Allgs Chart Reviewed, Consent Obtained/Reviewed and Anes Risks/Benef Reviewed Patient Risk: Intermediate Procedure Risk: Intermediate Anesthetic Plan Anesthetic Plan: Agree w/ Assess. and Plan and TIVA Disposition: Standard PACU
[2024-07-18 09:00] VITALS: BP 114/70; PULSE 83; RESP 14; TEMP 36.4; O2SAT 97; BMI 34.5
--- NOTE | 2024-07-18 09:00 | P.HPSUR_ITS ---
Pre-Procedural Eval Section A - 24 Hr Update-Section A only Date of Service: 07/18/24 Section B - Complete if H&P > 30 days Chief Complaint: Ventura's esophagus,gerd,hx malignant neoplasm Relevant Family History (Specify if Yes): Yes Relevant Social History: None Present Medications: see Short Stay Collaborative assessment Medical History: Significant History (Overactive bladder Sjogrens syndrome Sylvester niecy's thyroiditis Barretts esophagus Depression Asthma GERD (gastroesophageal reflux disease) History of ovarian cancer) History of Previous Operations: Relevant previous surgery/procedure and date(s) (H/O bilateral oophorectomy History of thyroglossal duct cyst removal Hx of tonsillectomy History of tubal ligation History of cholecystectomy H/O esophagogastroduodenoscopy H/O colonoscopy) Allergies: Allergies Allergy/AdvReac Type Severity Reaction Status Date / Time erythromycin base Allergy Severe Hives Verified 02/25/24 08:59 Sulfa (Sulfonamide Allergy Severe Hives Verified 02/25/24 08:59 Antibiotics) azithromycin Allergy Unknown redness, Verified 02/25/24 08:59 sensative cephalexin [From Keflex] Allergy Unknown Unknown Verified 02/25/24 08:59 clotrimazole Allergy Unknown sensativity Verified 02/25/24 08:59 codeine Allergy Unknown Hives Verified 02/25/24 08:59 esomeprazole [From Nexium] Allergy Unknown Unknown Verified 02/25/24 08:59 levofloxacin [From Levaquin] Allergy Unknown Unknown Verified 02/25/24 08:59 metronidazole Allergy Unknown sensativity Verified 02/25/24 08:59 omeprazole Allergy Unknown Unknown Verified 02/25/24 08:59 povidone-iodine [Betadine] Allergy Unknown sensitivity Verified 02/25/24 08:59 rabeprazole [From AcipHex] Allergy Unknown Unknown Verified 02/25/24 08:59 soap [Betadine] Allergy Unknown sensativity Verified 02/25/24 08:59 sucralfate [Carafate] Allergy Unknown sensativity Verified 02/25/24 08:59 tetracycline Allergy Unknown Unknown Verified 02/25/24 08:59 Review of Systems Sugical H&P ROS: Negative: Constitution, Cardiovascular, Respiratory, Neurological, Psychiatric, Hem-Onc, Allergic/Immunologic, Gastrointestinal, Genitourinary, Musculoskeletal, Integumentary, Endocrine and Eyes/Ears/Nose/Throat Exam Surgical H&P Exam: Normal: HEENT, Normal: Heart, Normal: Lungs, Normal: Extremities, Normal: Abdomen, Normal: Skin and Normal: Neurological Plan Diagnosis/Plan: Unchanged I have reviewed the history and physical and performed a pertinent physical examination on my patient. No changes have occurred unless specified. Time Spent With Patient Time: Total time managing care of this patient today ____ minutes.
--- NOTE | 2024-07-18 10:31 | HO.OPN-COLON ---
Colonoscopy Operative Note Operative Note Date of Service: 07/18/24 Narrative: Operative Information Procedure Description: EGD, Colonoscopy Indication: hx of barretts, colo screening Anesthesia: MAC FLEXIBLE TRANSORAL UPPER GASTROINTESTINAL ENDOSCOPY AND COLONOSCOPY PROCEDURE NOTE UPPER ENDOSCOPY Consent: Indications for the procedure and potential complications of bleeding, perforation, reaction to medications and missed diagnosis were discussed with the patient and informed consent was obtained. Instrument: Olympus GIF H 190 J mid size upper endoscope Monitoring: Vital signs and clinical assessment, continuous EKG monitoring, Pulse oximetry, Carbon Dioxide monitoring and blood pressure monitoring were done throughout the procedure. Procedure: The patient was placed in the left lateral decubitis position and pre-procedure medications were administered and a bite block was placed. The endoscope was inserted into the mouth and advanced under direct vision to the third part of duodenum. A careful inspection was made as the upper endoscope was withdrawn including a retroflexed examination of the proximal stomach; Findings and interventions are described below. Findings: Larynx:normal Esophagus: GE junction at 35 cm, diaphragm hiatus at 37 cm, consistent with 2 cm sliding hiatal hernia. short tongues of possible barretts 2 cm bx and brushings taken. Small ulcer noted in distal esophagus, bx taken, schatzki ring noted Stomach: Patchy erythema with fundic gland polyps. Biopsies were obtained. Grade 2 flap valve on retroflexed examination of the cardia. Duodenum: Patchy duodenitis, bx taken Intervention: Biopsies as noted above, brushings for WATS COLONOSCOPY Instrument: Olympus variable stiffness pediatric scope 190L Colonoscopy Monitoring: Vital signs and clinical assessment, continuous EKG monitoring, Pulse oximetry, Carbon Dioxide monitoring and blood pressure monitoring were done throughout the procedure. Colon withdrawal time was 13 minutes. Procedure: The patient was placed in the left lateral decubitis position and pre-procedure medications were administered. After a digital rectal examination of the ano-rectum, the video colonoscope was inserted into the rectum and advanced through the colon to the cecum/TI. The colonoscope was slowly withdrawn in a retrograde panoramic fashion and the colon mucosa was carefully examined including a retroflexed view of the rectum. Findings and interventions are described below. Procedure Difficulty:moderate Findings: Terminal Ileum-normal Cecum:4-5 mm sessiel polyp removed with cold forceps Ascending Colon: normal Transverse Colon -normal Descending Colon:normal Sigmoid Colon: 6-8 mm sessile polyp removed with cold snare Rectum: Retroflexion with small internal hemorrhoids, grade I Anorectum - normal Colon preparation: Meridian Bowel Preparation Scale Right colon; 2 Transverse colon: 2 Left colon; 2 (0 = Unprepared colon segment with mucosa not seen due to solid stool that cannot be cleared. 1 = Portion of mucosa of the colon segment seen, but other areas of the colon segment not well seen due to staining, residual stool and/or opaque liquid. 2 = Minor amount of residual staining, small fragments of stool and/or opaque liquid, but mucosa of colon segment seen well. 3 = Entire mucosa of colon segment seen well with no residual staining, small fragments of stool or opaque liquid) Impression and Post Procedure Diagnosis: Endoscopy Findings: barretts hiatal hernia schatzki ring gastritis duodenitis fundic gland polyps esophageal ulcer and esophagitis Colonoscopy Findings: colon polyps x 2 internal hemorrhoids Plan: Await Pathology results Repeat Colonoscopy in 5 years or earlier if clinically indicated High fiber diet leaflet avoid straining at stool, epsom salts and sitz bath, anusol supps or cream EGD repeat in 5 yrs if low risk on tissue cypher, and bx reassuring otherwise will do earlier Above findings were reviewed with the patient and relevant handouts were provided if indicated.
[2024-07-18 10:38] VITALS: BP 104/62; PULSE 75; RESP 18; TEMP 36.3; O2SAT 97
[2024-07-18 10:46] VITALS: BP 102/47; PULSE 75; RESP 16; TEMP 36.2; O2SAT 97
== END 2024-07-18 11:32 | disposition home or self-care (01) ==
PROVIDERS: PCP Internal Medicine; Visit Provider Internal Medicine Gastroenterology
PROC: (CPT 45385; principal; 2024-07-18 10:20)
DX: Z12.11 Encounter for screening for malignant neoplasm of colon (principal); Z80.0 Family history of malignant neoplasm of digestive organs; D12.0 Benign neoplasm of cecum; K63.5 Polyp of colon; K64.0 First degree hemorrhoids; K22.70 Barrett's esophagus without dysplasia; K31.7 Polyp of stomach and duodenum; K21.9 Gastro-esophageal reflux disease without esophagitis; K29.50 Unspecified chronic gastritis without bleeding; K22.2 Esophageal obstruction; K29.80 Duodenitis without bleeding; K44.9 Diaphragmatic hernia without obstruction or gangrene; E06.3 Autoimmune thyroiditis; M35.00 Sjogren syndrome, unspecified; J45.909 Unspecified asthma, uncomplicated; N32.81 Overactive bladder; F32.A Depression, unspecified; Z85.43 Personal history of malignant neoplasm of ovary; Z90.722 Acquired absence of ovaries, bilateral; Z79.899 Other long term (current) drug therapy; Z88.1 Allergy status to other antibiotic agents; Z88.2 Allergy status to sulfonamides; Z88.5 Allergy status to narcotic agent; Z88.8 Allergy status to other drugs, medicaments and biological substances; Z90.49 Acquired absence of other specified parts of digestive tract; Z87.891 Personal history of nicotine dependence
CPT/HCPCS: 45385; 45380; 43239; 88305; 88342; J2003; J2704; J3010

== ENCOUNTER → 2024-07-18 08:23 | Outpatient (BNV) | payer OTHER, SELFPAY | PROVIDERS: PCP Internal Medicine; Visit Provider Internal Medicine Gastroenterology | DX: K22.70 Barrett's esophagus without dysplasia (principal); K29.70 Gastritis, unspecified, without bleeding; K31.7 Polyp of stomach and duodenum; K29.80 Duodenitis without bleeding; D12.0 Benign neoplasm of cecum; D12.5 Benign neoplasm of sigmoid colon; K64.8 Other hemorrhoids | CPT/HCPCS: 43239; 45380; 45385 ==

== ENCOUNTER 2024-08-07 13:32 | Outpatient (AMB) | payer OTHER, SELFPAY ==
[2024-08-07 13:37] VITALS: BMI 34.4
--- NOTE | 2024-08-07 13:37 | A.OFFVIS_ITS ---
Vital Signs 08/07/24 13:37 Height 5 ft 5 in Weight 207 lb BMI 34.4 Intake Visit Reasons: OV- right hip pain Intake Note: Aliyah a 68 year old female who presents today for a follow up of right hip pain. Patient was previously given an injection on 08/09/23. Today she complains of pain in her groin area and a lump that is located near her groin area. Difficulty with sleeping on her right side. She has tenderness at the lateral aspect of hip and numbness that travels down her leg. She has attended physical therapy however this did not help. Allergies erythromycin base Allergy (Severe, Verified 08/07/24 14:05) Hives Sulfa (Sulfonamide Antibiotics) Allergy (Severe, Verified 08/07/24 14:05) Hives azithromycin Allergy (Unknown, Verified 08/07/24 14:05) redness, sensative cephalexin [From Keflex] Allergy (Unknown, Verified 08/07/24 14:05) Unknown clotrimazole Allergy (Unknown, Verified 08/07/24 14:05) sensativity codeine Allergy (Unknown, Verified 08/07/24 14:05) Hives esomeprazole [From Nexium] Allergy (Unknown, Verified 08/07/24 14:05) Unknown levofloxacin [From Levaquin] Allergy (Unknown, Verified 08/07/24 14:05) Unknown metronidazole Allergy (Unknown, Verified 08/07/24 14:05) sensativity omeprazole Allergy (Unknown, Verified 08/07/24 14:05) Unknown povidone-iodine [Betadine] Allergy (Unknown, Verified 08/07/24 14:05) sensitivity rabeprazole [From AcipHex] Allergy (Unknown, Verified 08/07/24 14:05) Unknown soap [Betadine] Allergy (Unknown, Verified 08/07/24 14:05) sensativity sucralfate [Carafate] Allergy (Unknown, Verified 08/07/24 14:05) sensativity tetracycline Allergy (Unknown, Verified 08/07/24 14:05) Unknown HPI HPI OV- right hip pain: Details: A 68-year-old female returns to the office today for concern of cystic like structure in the inguinal groin region on the right side. I previously saw her for right hip trochanteric bursitis and gave her an injection along with physical therapy which she states was somewhat helpful. She states she has been to her primary care provider who has ruled out condition such as a hernia. A CT scan of her abdomen pelvis were obtained which were negative for any abnormalities within the pelvic/abdominal region. She was referred back to our office for further evaluation. [facility] Medical History (Updated 07/14/24 @ 14:07 by Christina Fontaine RN) Overactive bladder Sjogrens syndrome Samantha's thyroiditis Barretts esophagus Depression Asthma GERD (gastroesophageal reflux disease) History of ovarian cancer Surgical History H/O bilateral oophorectomy History of thyroglossal duct cyst removal Hx of tonsillectomy History of tubal ligation History of cholecystectomy H/O esophagogastroduodenoscopy H/O colonoscopy Family History Mother Stomach cancer MALT lymphoma Paternal Aunt Pancreatitis Family/Other Colorectal cancer Social History Are you a primary respiratory care assistant to a significant other at home: No Do you presently have visiting nurse or other home services: No Patient Tobacco Use Status: Former Tobacco user Current occupational status: employed 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 She has a positive straight leg raise. No pain with hip flexion. She does have what appears to be a fibrous cystic area in the lower abdominal/inguinal area that is not significantly tender to palpation. It feels very superficial. Assessment & Plan Assessment & Plan (1) Trochanteric bursitis, right hip: Code(s): M70.61 - Trochanteric bursitis, right hip Category: Medical Plan: The patient states she does have an appointment with a urodynamic specialists to further assess this fibrocystic structure as she has a history of a bladder surgery that she feels may be contributing. I reassured her this does not appear to be anything orthopedic in the setting of muscle strain or arthritis. She also has an appointment with Rheumatology for further assessment. I did mention and evaluation with General surgery may be an option for her as they deal with more soft tissue masslike structures. She is content with this plan and will follow up as needed. Coding Level of Care Code Est Pt Level 3 (52738) Complex EM visit Add On G2211 Diagnoses Trochanteric bursitis, right hip M70.61
--- OUTSIDE RECORDS SUMMARY | 2024-08-07 14:41 | XMS_ITS | Continuity of Care Document ---
Author Organization [facility] Adult Address [address] [place] [address]- Care Team Providers Care Extrusion Die Template Maker Name Role Phone Parish HERRERA, Leonides Primary Care Physician [phone] Encounter [facility] Date(s): 07/03/24 - 08/02/[address] [address]- Encounter Type: Triage Allergies, Adverse Reactions, Alerts Substance Criticality Severity Reaction Reaction Severity Status codeine crawling feelin g Itching of skin Active doxycycline red face Headache Active Septra Red face 13-MAY-2013 07:18:10<$> Active Levaquin Night terror 13-MAY-2013 07:24:12<$> Active tetracycline red face Headache Active sulfa drugs Hives Active erythromycin Hives Active azithromycin Vomiting Active omeprazole heart palpitations Active clotrimazole hives Active Keflex Red face 13-MAY-2013 07:18:10<$> Active Betadine itch Active Adhesive Bandage redness to the skin Active Latex unknown Active Other Environmental Allergy 1, 2 Active metroNIDAZOLE neuropathy Motor peripheral neuropathy Active SARS-CoV-2 (COVID-19) mRNA-1273 vaccine 3 Moderna [...] virus vaccine, inactivated 12/22/13 Give n SARS-CoV-2(COVID-19)mRNA-LNP vac([id number]) 12/28/22 Recorded pneumococcal 20-valent conjugate vaccine 5 06/05/22 Given SARS-CoV-2 (COVID-19) mRNA-1273 vaccine 07/04/21 R ecorded SARS-CoV-2 (COVID-19) mRNA-1273 vaccine 01/11/21 R ecorded SARS-CoV-2 (COVID-19) mRNA-1273 vaccine 04/04/20 R ecorded SARS-CoV-2 (COVID-19) mRNA-1273 vaccine 03/07/20 R ecorded SARS-CoV-2 mRNA ([id number]) vax 04/04/20 Recorded Influenza Virus Vaccine (oldterm) 12/06/18 Recorde d tetanus-diphtheria toxoids (Td) 6 10/24/18 Given Zoster Vaccine Live 7 02/08/15 Given tetanus/diphtheria/pertussis, acel(Tdap) 8 03/08/09 Given 1Result Comment: [02/16/2018] done at work 2Result Comment: [12/04/2016] [facility] [id number] 3Result Comment: [04/30/2016] [facility] 4Result Comment: [01/07/2015] Given by employer 5Result Comment: [facility] [id number] 6Result Comment: [facility] [id number] 7Result Comment: [02/08/2015] consent signed. 8Admin Note: done at [facility] services Medications albuterol CFC free 90 mcg/inh inhalation aerosol 2, puffs, Inhalation, 4 times a day, PRN, # 18 Gm, Refills 0, Tot. Refills 0, Maintenance, 06/13/24 10:09:00 AM EDT, Aerosol, Route to Pharmacy Electronically, [id number], [facility], 164, cm, 06/13/24 9:50:00 EDT, Height, [...] Date: 01/10/24 Status: Ordered Repeat number: 1 Multivitamin 1 tab, By Mouth, Daily in AM, 0 Refills, Maintenance, 05/25/12 9:10:38 AM EDT Start Date: 05/25/12 Status: Ordered Repeat number: 1 mupirocin 2% topical ointment See Instructions, APPLY TOPICALLY TO AFFECTED AREA TWO TIMES A DAY FOR 14 DAYS, # 22 Gm, 0 Refills,Maintenance, 06/13/24 10:09:00 AM EDT, [facility] 3, APPLY TOPICALLY TO AFFECTED AREA TWOTIMES [...] Quantity: 10.6 Unit: g Repeat number: 1 Vitamin D3 Gummies By Mouth, Daily, 0 [...] esophagus Confirmed Active Samantha's thyroiditis Confirmed Active Hyperlipidemia, unspecified Confirmed Active Pulmonary nodule Confirmed Active Overactive bladder Confirmed Active Persistent depressive disorder with anxious distress, currently moderate Confirmed Active Severe obesity (BMI 35.0-39.9) with comorbidity Confirmed Active Sjogrens syndrome Confirmed Active Thyroid nodule Confirmed Active Social History Social History Type Response Tobacco Other: quit 1990. To bacco use times per day: Smoked 1 pack per week. Sex Sex Representation Female (finding) Patient Care team information Care Team Personnel Name: Patel BURNETT, Ramya Jensen Position: [facility] PCO Associate Professional Member Role: Lifetime Consulting Provider Address: [address] [place] [address] [place] [address]- Telecom: Name: Promise Marcum MD Position: [facility] ECONOMIC DEVELOPMENT COORDINATOR Member Role: Lifetime ECONOMIC DEVELOPMENT COORDINATOR Physician Address: [address] [place] [address] [place] [address]- Telecom: Name: Jeanie Giron MD Position: [facility] ECONOMIC DEVELOPMENT COORDINATOR Member Role: Lifetime ECONOMIC DEVELOPMENT COORDINATOR Physician Address: [address] [place] [address] [place] [address]- Telecom: Name: Leonides Lugo MD Position: [facility] Physician - Primary Care Member Role: PCP Address: [address] [place] [address]- Telecom: Care Team Related Persons Name: MARIAM REGAN Insurance Providers Guarantor name: MATIAS REGAN Health Plan Information #: 1 Payer: [facility] PPO Member Number: NA Policy Number: NA Group Number: NA
== END 2024-08-07 14:05 | disposition home or self-care (01) ==
LOC: HO.HOS 13:33
PROVIDERS: PCP Internal Medicine; Visit Provider Physician Assistant
DX: M70.61 Trochanteric bursitis, right hip (principal)
CPT/HCPCS: 99213

== ENCOUNTER 2024-08-11 08:49 | Outpatient (AMB) | payer OTHER, SELFPAY ==
--- NOTE | 2024-08-11 08:50 | MHC.OFFVIS ---
Vital Signs 08/11/24 08:52 Height 5 ft 5 in Weight 207 lb BMI 34.4 BP 126/58 L Blood Pressure Location Rt brachial Position Sitting Pulse 80 Pulse Source Pulse Oximeter Pulse Oximetry (%) 96 Oxygen Delivery Method Room Air Intake Visit Reasons: 6 mos GERD. S/P Duo Intake Note: Established patient for mgmt of GERD + s/p duo. CC; Pt would like to discuss potential alternatives to vonoprazan as it is expensive. Pt is hoping to discuss possible surgical intervention to correct the issue. Pt does report a drastic change since making dietary changes (soda + coffee) and has been doing much better overall. Reset Merchandiser Required: No Accompanied by: Self / Same As Patient Allergies erythromycin base Allergy (Severe, Verified 08/11/24 08:55) Hives Sulfa (Sulfonamide Antibiotics) Allergy (Severe, Verified 08/11/24 08:55) Hives azithromycin Allergy (Unknown, Verified 08/11/24 08:55) redness, sensative cephalexin [From Keflex] Allergy (Unknown, Verified 08/11/24 08:55) Unknown clotrimazole Allergy (Unknown, Verified 08/11/24 08:55) sensativity codeine Allergy (Unknown, Verified 08/11/24 08:55) Hives esomeprazole [From Nexium] Allergy (Unknown, Verified 08/11/24 08:55) Unknown levofloxacin [From Levaquin] Allergy (Unknown, Verified 08/11/24 08:55) Unknown metronidazole Allergy (Unknown, Verified 08/11/24 08:55) sensativity omeprazole Allergy (Unknown, Verified 08/11/24 08:55) Unknown povidone-iodine [Betadine] Allergy (Unknown, Verified 08/11/24 08:55) sensitivity rabeprazole [From AcipHex] Allergy (Unknown, Verified 08/11/24 08:55) Unknown soap [Betadine] Allergy (Unknown, Verified 08/11/24 08:55) sensativity sucralfate [Carafate] Allergy (Unknown, Verified 08/11/24 08:55) sensativity tetracycline Allergy (Unknown, Verified 08/11/24 08:55) Unknown HPI HPI 6 mos GERD. S/P Duo: Details: Assessment & Plan (1) 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: Comment: Focal area of 07/2022 scope resolved by 12/2022 scope Code(s): K22.70 - Ventura's esophagus without dysplasia Category: Medical (2) GERD (gastroesophageal reflux disease): Code(s): K21.9 - Gastro-esophageal reflux disease without esophagitis Category: Medical (3) Multiple drug allergies: Code(s): Z88.9 - Allergy status to unspecified drugs, medicaments and biological substances Category: Medical (4) Family history of colon cancer in mother: Code(s): Z80.0 - Family history of malignant neoplasm of digestive organs Category: Medical (5) Pre-op examination: Code(s): Z01.818 - Encounter for other preprocedural examination Category: Medical Plan She had COVID for the first time and since her stomach has been generally upset and her bowels very soft and frequent. We discuss a fiber supplement and she is doing pablito. We are limited r/t her multiple medication allergies. She had an EGD in 2022 and she says it was negative for SSBE. I see the report and it is okay. She is due for a colonoscopy. Her last was in 2019 and she has a FHX of crc in her mother and paternal grandfather. Her asthma is well controlled and she denies any cardiac problems. NO prior problems with anesthesia or sedation. No ID problems. She has a FHX of crc as noted and she has had polyps removed. Orders: Orders Colonoscopy - GI Use Only Today Z80.0 - Family history of malignant neoplasm of digestive organs Medications: New sodium,potassium,mag sulfates 17.5-3.13-1.6 gram (Suprep Bowel Prep Kit) 480 mL orally; FOR COLONOSCOPY PREP 354 mL 0RF EGS/COLONOSCOPY 07/18/24 Findings: Terminal Ileum-normal Cecum:4-5 mm sessiel polyp removed with cold forceps Ascending Colon: normal Transverse Colon -normal Descending Colon:normal Sigmoid Colon: 6-8 mm sessile polyp removed with cold snare Rectum: Retroflexion with small internal hemorrhoids, grade I Anorectum - normal Impression and Post Procedure Diagnosis: Endoscopy Findings: barretts hiatal hernia schatzki ring gastritis duodenitis fundic gland polyps esophageal ulcer and esophagitis Colonoscopy Findings: colon polyps x 2 internal hemorrhoids Plan: Await Pathology results Repeat Colonoscopy in 5 years or earlier if clinically indicated High fiber diet leaflet avoid straining at stool, epsom salts and sitz bath, anusol supps or cream EGD repeat in 5 yrs if low risk on tissue cypher, and bx reassuring otherwise will do earlier BIOPSY Received: 07/18/24 ADDENDUM REPORT Addendum Addendum #2 (C): TissueCypher results: Risk Class: Low Risk Score: 2.5 (range 0 ? 10) 5-year probability of progression: 1% See entire scanned report in EMR - report/pathology section (camera icon). Electronically Signed By: Alyson Horton 08/02/24 3440 Addendum #1 Immunostains for H. pylori on A and B are negative. Control stains appropriately. Additional deeper levels on F show polypoid colonic mucosa with prominent adipose tissue suggesting lipoma, and mild hyperplastic epithelial changes; no adenomatous dysplasia seen. Electronically Signed By: Alyson Horton 07/24/24 1336 Diagnosis A. Duodenum, biopsy: Duodenal mucosa with predominantly preserved villi and features of chronic/non- specific duodenitis. B. Stomach, biopsy: Gastric antral and body mucosa with minimal chronic inactive gastritis; negative for intestinal metaplasia and dysplasia. C. Esophagogastric junction, biopsy: Squamous mucosa with hyperplasia and few intraepithelial eosinophils (up to 2 per high-power field) consistent with esophagitis and columnar mucosa with mild chronic inflammation and focal intestinal metaplasia; negative for dysplasia. D. Esophagus, ulcer, biopsy: Squamous mucosa with no specific change; no ulcer identified; no columnar mucosa present. E. Colon, cecal polyp: Tubular adenoma; negative for high-grade dysplasia and carcinoma. Patient: Aliyah Crenshaw Age/Sex: 68/F MR#: [id number] Page 1 of 3 Surgical Pathology [id number] F. Colon, sigmoid, polyps: Colonic mucosa (1 piece) with minor crypt distortion on initial levels (see comment). Comment: (B): Immunostain for H. pylori pending; addendum to follow. (C): These findings are consistent with Ventura?s esophagus if the biopsies were taken from above the anatomic gastroesophageal junction. Clinical and endoscopic correlation is advised. TissueCypher testing pending; addendum to follow. (F): Additional deeper tissue levels pending; addendum to follow TISSUE PSYCH OR SHOWS LOW RISK FOR BARRETTS ESOPHAGUS TODAY'S VISIT She has multiple a/e to PPI's, she was rx'ed the new k+ acid inhalation therapy aide, but it would cost her $100 a bottle. She is using TUMS and she has cut back on coffee, sodas etc and she is feeling better. We also discuss possible pepcid use and baking soda 1/2t 2-3 times a day. With coffee cessation the pain in her right side resolved. Again she has multiple medication allergies that have limited her use of PPIs etc. in the past. Her stooling is rabbit pellets and she strains, so we revisit considering a fiber supplement as well as colace. She also likes Raisin Bran. She will start this and titrate, she also likes prunes. SHe is agreeable to a 5 year follow up. The procedure was well tolerated. The results were explained and the patient is agreeable to the follow-up interval as stated. The bowel pattern has returned to normal. Education was provided to tell any 1st degree relatives about their findings to be sure that they are screened by age 45. Educated that they will be put on a recall list when it is time for their repeat scope but should they move out of state or away from the hospital they will need to remember along with their primary to repeat the procedure in a timely fashion to avoid any adverse complications. [facility] Medical History (Updated 08/11/24 @ 14:06 by VALERY Kuamr) Pre-op examination Overactive bladder Sjogrens syndrome Samantha's thyroiditis Barretts esophagus Depression Asthma GERD (gastroesophageal reflux disease) History of ovarian cancer Surgical History H/O bilateral oophorectomy History of thyroglossal duct cyst removal Hx of tonsillectomy History of tubal ligation History of cholecystectomy H/O esophagogastroduodenoscopy H/O colonoscopy Family History Mother Stomach cancer MALT lymphoma Paternal Aunt Pancreatitis Family/Other Colorectal cancer Social History Are you a primary women's health care nurse practitioner to a significant other at home: No Do you presently have visiting nurse or other home services: No Patient Tobacco Use Status: Former Tobacco user Current occupational status: employed 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 Review of Systems Const Denies fatigue, Denies fever(s), Denies night sweats, Denies poor appetite and Denies weight loss Eyes Details: glasses Reports requires corrective lenses ENT Reports Normal hearing present, Denies dental pain, Denies dysphagia, Denies hearing loss, Denies mouth pain, Denies odynophagia, Denies throat swelling, Denies tongue swelling and Reports other (Dentition adequate) Card Reports no additional complaints Resp Reports no additional complaints GI Details: Denies abdominal pain, Denies melena, Denies bloating, Denies hematochezia, Reports constipation, Reports GI cramping, Denies dysphagia, Denies excessive flatus, Denies early satiety, Reports heartburn, Denies diarrhea, Denies nausea, Denies odynophagia, Denies vomiting and Denies hematemesis Skin/Breast Denies pruritus, Denies lesions, Denies rash and Denies jaundice Neuro Reports Normal hearing present and Denies Abnormal speech present Endo Denies fatigue Aller/Immun Denies throat swelling and Denies tongue swelling Physical Exam Vital Signs: Last Vital Signs Pulse 80 08/11/24 08:52 BP 126/58 L 08/11/24 08:52 Pulse Ox 96 08/11/24 08:52 Oxygen Delivery Method Room Air 08/11/24 08:52 BMI result Body Mass Index 34.4 Const General: cooperative, no acute distress, well developed and well groomed Nutritional Appearance: well nourished and obese Orientation/consciousness: oriented to person, oriented to place and oriented to time Limitations: No language barrier HEENT Head: Yes normocephalic and Yes atraumatic Eyes General: appearance normal, both eyes and all related structures Pupils: Equal, round and reactive pupils present Neck Neck: Yes normal visual inspection and Yes no lymphadenopathy Thyroid: Thyroid normal Resp Effort & Inspection: normal respiratory effort and able to speak in complete sentences Auscultation: clear to auscultation bilaterally Cardio Rate: regular rate Rhythm: regular rhythm Heart sounds: Normal, physiologic split S2 sound present Peripheral pulses: radial pulses present and posterior tibial pulses present GI Inspection: No distended, Yes Abdominal panniculus present and Yes obesity Palpation (GI): Soft to palpation, nontender, no guarding, not rigid and No hepatosplenomegaly present Percussion: Yes normal to percussion Auscultation: normal bowel sounds Rectal Exam - Female: deferred Skin General skin exam: no rashes or lesions noted, turgor normal, skin not dry, no jaundice, No spider nevi and no striae Rashes: no rashes Nails: normal Neuro General: oriented to person, oriented to place and oriented to time Cranial nerves: Yes Equal, round and reactive pupils present and Yes Normal hearing present Speech: No Abnormal speech present Extrem General: Yes normal to inspection, No clubbing, No cyanosis and No edema Psych Appearance: grossly normal and well kempt Mental Status: mental status grossly normal Speech and movement: Normal speech and movement present Affect: normal affect Attitude: cooperative Thought process: Normal thought process present and not confabulating Thought content: Normal thought content present Insight: Fair insight present (Psych) Judgement: Fair judgement present (Psych) Results Reviewed Results Reviewed: EGS/COLONOSCOPY 07/18/24 Findings: Terminal Ileum-normal Cecum:4-5 mm sessiel polyp removed with cold forceps Ascending Colon: normal Transverse Colon -normal Descending Colon:normal Sigmoid Colon: 6-8 mm sessile polyp removed with cold snare Rectum: Retroflexion with small internal hemorrhoids, grade I Anorectum - normal Impression and Post Procedure Diagnosis: Endoscopy Findings: barretts hiatal hernia schatzki ring gastritis duodenitis fundic gland polyps esophageal ulcer and esophagitis Colonoscopy Findings: colon polyps x 2 internal hemorrhoids Plan: Await Pathology results Repeat Colonoscopy in 5 years or earlier if clinically indicated High fiber diet leaflet avoid straining at stool, epsom salts and sitz bath, anusol supps or cream EGD repeat in 5 yrs if low risk on tissue cypher, and bx reassuring otherwise will do earlier BIOPSY Received: 07/18/24 ADDENDUM REPORT Addendum Addendum #2 (C): TissueCypher results: Risk Class: Low Risk Score: 2.5 (range 0 ? 10) 5-year probability of progression: 1% See entire scanned report in EMR - report/pathology section (camera icon). Electronically Signed By: Alyson Horton 08/02/24 6824 Addendum #1 Immunostains for H. pylori on A and B are negative. Control stains appropriately. Additional deeper levels on F show polypoid colonic mucosa with prominent adipose tissue suggesting lipoma, and mild hyperplastic epithelial changes; no adenomatous dysplasia seen. Electronically Signed By: Alyson Horton 07/24/24 8657 Diagnosis A. Duodenum, biopsy: Duodenal mucosa with predominantly preserved villi and features of chronic/non- specific duodenitis. B. Stomach, biopsy: Gastric antral and body mucosa with minimal chronic inactive gastritis; negative for intestinal metaplasia and dysplasia. C. Esophagogastric junction, biopsy: Squamous mucosa with hyperplasia and few intraepithelial eosinophils (up to 2 per high-power field) consistent with esophagitis and columnar mucosa with mild chronic inflammation and focal intestinal metaplasia; negative for dysplasia. D. Esophagus, ulcer, biopsy: Squamous mucosa with no specific change; no ulcer identified; no columnar mucosa present. E. Colon, cecal polyp: Tubular adenoma; negative for high-grade dysplasia and carcinoma. Patient: Aliyah Crenshaw Age/Sex: 68/F MR#: [id number] Page 1 of 3 Surgical Pathology [id number] F. Colon, sigmoid, polyps: Colonic mucosa (1 piece) with minor crypt distortion on initial levels (see comment). Comment: (B): Immunostain for H. pylori pending; addendum to follow. (C): These findings are consistent with Ventura?s esophagus if the biopsies were taken from above the anatomic gastroesophageal junction. Clinical and endoscopic correlation is advised. TissueCypher testing pending; addendum to follow. (F): Additional deeper tissue levels pending; addendum to follow TISSUE PSYCH OR SHOWS LOW RISK FOR BARRETTS ESOPHAGU Assessment & Plan Assessment & Plan (1) GERD (gastroesophageal reflux disease): Code(s): K21.9 - Gastro-esophageal reflux disease without esophagitis Category: Medical (2) Family history of colon cancer in mother: Comment: 2024 SCOPE= 1 TA REPEAT IN 5 YEARS Code(s): Z80.0 - Family history of malignant neoplasm of digestive organs Category: Medical (3) 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: Comment: Focal area of 07/2022 scope resolved by 12/2022 scope Code(s): K22.70 - Ventura's esophagus without dysplasia Category: Medical (4) Tubular adenoma of colon: Comment: 2024 SCOPE= 1 TA REPEAT IN 5 YEARS Code(s): D12.6 - Benign neoplasm of colon, unspecified Category: Medical Plan She has multiple a/e to PPI's, she was rx'ed the new k+ acid inhalation therapy aide, but it would cost her $100 a bottle. She is using TUMS and she has cut back on coffee, sodas etc and she is feeling better. We also discuss possible pepcid use and baking soda 1/2t 2-3 times a day. With coffee cessation the pain in her right side resolved. Again she has multiple medication allergies that have limited her use of PPIs etc. in the past. Her stooling is rabbit pellets and she strains, so we revisit considering a fiber supplement as well as colace. She also likes Raisin Bran. She will start this and titrate, she also likes prunes. SHe is agreeable to a 5 year follow up. The procedure was well tolerated. The results were explained and the patient is agreeable to the follow-up interval as stated. The bowel pattern has returned to normal. Education was provided to tell any 1st degree relatives about their findings to be sure that they are screened by age 45. Educated that they will be put on a recall list when it is time for their repeat scope but should they move out of state or away from the hospital they will need to remember along with their primary to repeat the procedure in a timely fashion to avoid any adverse complications. Coding Level of Care Code Est Pt Level 4 (37172) Diagnoses GERD (gastroesophageal reflux disease) K21.9 Family history of colon cancer in mother Z80.0 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 K22.70 Tubular adenoma of colon D12.6 Time Spent (min) 37
[2024-08-11 08:52] VITALS: BP 126/58; PULSE 80; O2SAT 96; BMI 34.4
== END 2024-08-11 09:50 | disposition home or self-care (01) ==
LOC: HO.HGI 08:49
PROVIDERS: PCP Internal Medicine; Visit Provider Nurse Practitioner
DX: K21.9 Gastro-esophageal reflux disease without esophagitis (principal); Z80.0 Family history of malignant neoplasm of digestive organs; K22.70 Barrett's esophagus without dysplasia; D12.6 Benign neoplasm of colon, unspecified
CPT/HCPCS: 99214

== ENCOUNTER → 2024-08-11 08:49 | Outpatient (BNVA) | payer OTHER, SELFPAY | PROVIDERS: PCP Internal Medicine; Visit Provider Nurse Practitioner ==

== ENCOUNTER 2024-09-07 08:47 | Outpatient (AMB) | payer OTHER, SELFPAY ==
[2024-09-07 08:55] VITALS: BP 110/70; PULSE 78; O2SAT 98; BMI 35.2
--- NOTE | 2024-09-07 08:55 | MHC.OFFVIS ---
Vital Signs 09/07/24 08:55 09/07/24 10:07 Height 5 ft 5 in Weight 211 lb 10.3 oz BMI 35.2 35.2 BP 110/70 Blood Pressure Location Lt brachial Position Sitting Pulse 78 Pulse Source Pulse Oximeter Pulse Oximetry (%) 98 Oxygen Delivery Method Room Air Intake Visit Reasons: OA Intake Note: Patient presents today for an OA follow up. Allergies erythromycin base Allergy (Severe, Verified 09/07/24 08:57) Hives Sulfa (Sulfonamide Antibiotics) Allergy (Severe, Verified 09/07/24 08:57) Hives azithromycin Allergy (Unknown, Verified 09/07/24 08:57) redness, sensative cephalexin (From Keflex) Allergy (Unknown, Verified 09/07/24 08:57) Unknown clotrimazole Allergy (Unknown, Verified 09/07/24 08:57) sensativity codeine Allergy (Unknown, Verified 09/07/24 08:57) Hives esomeprazole (From Nexium) Allergy (Unknown, Verified 09/07/24 08:57) Unknown levofloxacin (From Levaquin) Allergy (Unknown, Verified 09/07/24 08:57) Unknown metronidazole Allergy (Unknown, Verified 09/07/24 08:57) sensativity omeprazole Allergy (Unknown, Verified 09/07/24 08:57) Unknown povidone-iodine (Betadine) Allergy (Unknown, Verified 09/07/24 08:57) sensitivity rabeprazole (From AcipHex) Allergy (Unknown, Verified 09/07/24 08:57) Unknown soap (Betadine) Allergy (Unknown, Verified 09/07/24 08:57) sensativity sucralfate (Carafate) Allergy (Unknown, Verified 09/07/24 08:57) sensativity tetracycline Allergy (Unknown, Verified 09/07/24 08:57) Unknown HPI HPI OA: Details: Nausea every day in the morning. Hx GERD. EGD revealed victoria's esophagus. She was prescribed pepsid. In the past she had side effect from pepsid but had reaction that she cannot remember. She has also had a reaction to multiple other agents used to treat GERD in the past. She has dry eyes and dry mouth that are not controlled. She uses Biotene products and XyliMelts. She developed swelling of her right buttocks/thigh. She was concerned about lymph node enlargement in her right inguinal region. PCP ordered CT abdomen pelvis, which patient reports did not reveal in enlarged lymph node or any mass. [facility] Medical History Pre-op examination Overactive bladder Sjogrens syndrome Samantha's thyroiditis Barretts esophagus Depression Asthma GERD (gastroesophageal reflux disease) History of ovarian cancer Surgical History H/O bilateral oophorectomy History of thyroglossal duct cyst removal Hx of tonsillectomy History of tubal ligation History of cholecystectomy H/O esophagogastroduodenoscopy H/O colonoscopy Family History Mother Stomach cancer MALT lymphoma Paternal Aunt Pancreatitis Family/Other Colorectal cancer Social History Are you a primary animal care taker to a significant other at home: No Do you presently have visiting nurse or other home services: No Patient Tobacco Use Status: Former Tobacco user Current occupational status: employed 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 Good respiratory effort Skin: No lesions seen Lymph nodes: No cervical lymphadenopathy or inguinal lymphadenopathy appreciated. MSK: No tender joints. No synovitis. Normal range of motion of upper extremities and lower extremities. She has soft tissue swelling of right lateral thigh likely related to adipose tissue. No mass or nodule palpated. Assessment & Plan Assessment & Plan (1) Sjogrens syndrome: Comment: Sicca symptoms are uncontrolled. We discussed optimizing treatment for dry mouth with pilocarpine. Discussed benefits and side effects of pilocarpine. I am concerned that the nausea that she is experiencing in the morning is related to uncontrolled GERD (previously had reactions to multiple treatments). Soft tissue swelling right lateral thigh represents adipose tissue. I could not appreciate a mass. If she continues to have concerns for mass in right lateral thigh, dedicated ultrasound or MRI right hip could be performed for further evaluation. She will further discuss with PCP. Rheumatology history: Diagnosis of Sjogren syndrome seronegative (SSA/SSB negative, MIGUEL 1:160 with repeat negative. She also had positive double-stranded DNA by Crithidia negative.). Biopsy-proven. Code(s): M35.00 - Sjogren syndrome, unspecified Category: Medical Plan: Start pilocarpine 5mg TID Continue Biotene products and XyliMelts OTC for dry mouth management f/u with opthalmologist for dry eye management Disease monitoring labs ordered RTC 3 months Orders: Orders Complete Blood Count Man Dif 09/07/24 M35.00 - Sjogren syndrome, unspecified Alanine Aminotransferase 09/07/24 M35.00 - Sjogren syndrome, unspecified Aspartate Amino Transferase 09/07/24 M35.00 - Sjogren syndrome, unspecified Creatinine 09/07/24 M35.00 - Sjogren syndrome, unspecified C Reactive Protein 09/07/24 M35.00 - Sjogren syndrome, unspecified Complement C4 09/07/24 M35.00 - Sjogren syndrome, unspecified Erythrocyte Sedimentation Rate 09/07/24 M35.00 - Sjogren syndrome, unspecified Complement C3 09/07/24 M35.00 - Sjogren syndrome, unspecified Rheumatoid Factor 09/07/24 M35.00 - Sjogren syndrome, unspecified Protein Electrophoresis, Serum 09/07/24 M35.00 - Sjogren syndrome, unspecified Medications: New pilocarpine HCl 5 mg PO TID 90 tabs 11RF Coding Level of Care Code Est Pt Level 4 (03238) Complex EM visit Add On G2211 Diagnoses Sjogrens syndrome M35.00
--- OUTSIDE RECORDS SUMMARY | 2024-09-07 08:55 | XMS_ITS | Clinical Summary ---
Author Organization [facility] Address [address] [place] [address] Care Team Providers Care Edge Kitter Name Role Phone Leonides Lugo MD Primary Care Provider [phone]- [phone] Allergies Active Allergy Reactions Criticality Noted Date Comments Azithromycin GI Intolerance/Nausea /Vomiting Low 08/29/2024 Clotrimazole Hives,Unknown/Nesha ent and Family Unable to Define Medium 10/27/2018 Codeine Unknown/Patient and Family Unable to Define,Hives,Itchi ng Medium 02/07/2014 Covid-19 (Mrna) Vaccine Unknown/Patient and Family Unable to Define,Other (See Comments),Hives Medium 07/31/2021 Moderna Vaccine Erythromycin Hives,Unknown/Nesha ent and Family Unable to Define Medium 09/03/2004 erythromycin Latex Unknown/Patient and Family Unable to Define Medium 08/29/2024 Levofloxacin Unknown/Patient and Family Unable to Define Medium 10/27/2018 Metronidazole Unknown/Patient and Family Unable to Define,Other (See Comments) Medium 10/27/2018 Omeprazole Benign arrhythmia,Other (See Comments) Medium 07/31/2021 Povidone Iodine Itching,Other (See Comments) Low 02/07/2014 Sucralfate Unknown/Patient and Family Unable to Define Medium 10/27/2018 Sulfamethoxazole-Trime thoprim Hives,Other (See Comments) Medium 10/27/2018 Tetracycline Other (See Comments),Unknown/ Patient and Family Unable to Define Medium 09/03/2004 tetracycline hydrochloride Medications Voquezna 10 MG tablet 08/20/2024 Active cetirizine (ZyrTEC Allergy) 10 MG tablet Take 10 mg by mouth. 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 Overactive bladder 08/29/2024 Pulmonary nodule 08/29/2024 Persistent depressive disord er with anxious distress, currently moderate 08/29/2024 Thyroid nodule 08/29/2024 Sjogrens syndrome 08/29/2024 Severe obesity (BMI 35.0-39.9) with comorbidity 08/29/2024 Arthralgia of right knee 06/09/2024 Pain in left knee 06/09/2024 Inflammatory dermatosis 11/26/2023 Open wound of left ear 11/26/2023 Neoplasm of uncertain behavior of lip 06/15/2023 Nail dystrophy 06/15/2023 Non-scarring hair loss 06/15/2023 Eczema 02/10/2022 Hearing loss 02/10/2022 Partial thickness sunburn 02/10/2022 Nonthrombocytopenic purpura 08/11/2021 Disorder of pigmentation 02/18/2021 Hypertrophic condition of skin 02/18/2021 Atopic dermatitis 02/18/2021 Neoplasm of uncertain behavior of skin Tinea pedis 02/18/2021 Capillary disease 07/30/2020 Person with feared complaint in whom no diagnosi s is made 07/30/2020 Patellofemoral arthritis of left knee 07/26/2020 Xerosis cutis 02/19/2020 Impingement syndrome of right shoulder region Other psoriasis 06/16/2019 Knee stiffness, right 03/17/2019 Anxiety disorder 02/13/2019 Asthma 02/13/2019 Arthritis 02/13/2019 Hemangioma of skin and subcutaneous tissue 02/13 Gastroesophageal reflux disease 02/13/2019 Other melanin hyperpigmentation 02/13/2019 Melanocytic nevi of trunk 02/13/2019 Melanocytic nevi of right upper limb, including shoulder 02/13/2019 Melanocytic nevi of left upper limb, including s houlder 02/13/2019 Intrinsic (allergic) eczema 02/13/2019 Other seborrheic keratosis 02/13/2019 Right groin pain 12/20/2018 Arthritis of knee, right 10/27/2018 Other specified health status 06/30/2017 Personal history of other drug therapy 7 Senile hyperkeratosis 02/26/2015 Other rosacea 08/27/2014 Actinic keratosis 05/16/2014 Inflamed seborrheic keratosis 02/18/2014 Benign neoplasm of skin of trunk 02/07/2014 Encounters Date Type Department Care Team Description 08/29/2024 3:45 PM EDT Office Visit [facility] [address] [place] [address] Steve Looney MD Sialadenitis (Primary Dx); Neck swelling; Nasal pain from Last 3 Months Immunizations Immunization Administration Dates Next Due Influenza Virus Trivalent Sp lit Vaccine (MDV) IM 12/13/2023,12/07/2022,12/08/2021,2020,12/11/2019,01/20/2018,12/14/2017,0 12/04/2016,12/09/2015,12/26/2014, 014 Influenza Whole 12/06/2018 Pneumococcal Conjugate 20-Valent 06/05/2022 Td, Unspecified 10/24/2018 Tdap 03/08/2009 Zoster Vaccine Live/Attenuat ed (Zostavax) 02/08/2015 Social History Tobacco Use Types Packs/Day Years Used Date Smoking Tobacco: Never Assessed Comments Unknown Sex and Gender Information Value Date Recorded Sex Assigned at Female 08/22/2024 9:07 AM EDT Legal Sex Female 9:05 AM EDT Gender Identity Female 08/22/2024 9:07 AM EDT Sexual Orientation Heterosexual (straight) 08/22 9:07 AM EDT Plan of Treatment Health Maintenance Due Date Last Done Comments Hepatitis C Virus Screening 1955 Mammogram 1996 Colonoscopy 2001 Zoster (Shingles) Vaccine (2 of 3) 04/05/2015 02/08/2015 RSV Vaccine 60 years and older and Patients (1 - Risk 60-74 years 1-dose series) 2016 DXA Bone Density (Females,Ages 65 and older) 2021 COVID-19 Vaccine ( season) 2023 12/28/2022, 07/04/2021, 01/11/2021, Additional history exists Influenza Vaccine 10/06/2024 12/13/2023, , 12/08/2021, Additional history exists DTaP/Tdap/Td Vaccines (3 - Td or Tdap) 10/24/2028 10/24/2018, 03/08/2009 Pneumococcal Vaccines 50+ Completed 06/05/2022 Hepatitis B Vaccines Aged Out No long er eligible based on patient's age to complete this topic Insurance [facility] Care Teams Edge Kitter Relationship Specialty Start Date End Date Leonides Lugo MD [address] [place] [address] PCP - General Internal Medicine 08/30/24
--- OUTSIDE RECORDS SUMMARY | 2024-09-07 08:55 | XMS_ITS | Clinical Summary ---
Author Organization [facility] Address [address] [place] [id number] Care Team Providers Care Forklift Wheel Loader Name Role Phone Leonides Lugo MD Primary Care Provider [phone]- [phone] Allergies Active Allergy Reactions Criticality Noted Date [...] of 1 - PCV) 2021 Influenza Vaccine (Season Ended) 2024 01/20/2021, 12/11/2019, 01/20/2018, Additional history exists RSV Adult > 60+ Yrs or (1 - 1-dose 75+ series) 10/23/2031 Hepatitis B Vaccines Aged Out No long er eligible based on patient's age to complete this topic RSV Ped < 20 months Aged Out No longe r eligible based on patient's age to complete this topic Care Teams Forklift Wheel Loader Relationship Specialty Start Date End Date Leonides Lugo MD [address] [place] [address] PCP - General Internal Medicine 01/06/22
--- OUTSIDE RECORDS SUMMARY | 2024-09-07 08:55 | XMS_ITS | Data Portability ---
Author Organization [place] [facility] Sylvester Cosby [facility] [place] Address [address] [place] [address] Care Team Providers Care Packager And Strapper Name Role Phone AMBER DIETRICH Primary Care [...] findings at length with the patient today. We discussed the nature and etiology of this problem along with current treatment options. We discussed the expected course and outcomes and what to expect. We also discussed risks and benefits. All of their questions were answered today, and there was exhibited understanding and comprehension of all that was discussed. 10 minutes were spent reviewing previous imaging and charting. 10 minutes were spent obtaining patient history. 5 minutes were spent on physical exam. 5minutes were spent explaining diagnosis and assessment. Today's documentation was made using voice recognition software. This note may contain grammatical errors secondary to the software. Not available 06/18/2022 10:00:05 09/17/2022 09/17/2022 Pleasant 66-year-old female [id number] ant chief complaint left shoulder pain overuse [...] findings at length with the patient today. We discussed the nature and etiology of this problem along with current treatment options. We discussed the expected course and outcomes and what to expect. We also discussed risks and benefits. All of their questions were answered today, and there was exhibited understanding and comprehension of all that was discussed. Time Spent: 10 minutes were spent reviewing previous imaging and charting. 10 minutes were spent obtaining patient history. 5 minutes were spent on physical exam. 5minutes were spent explaining diagnosis and assessment. Today's [...] shoulder, 2 or more view [address] [facility], [address], [address], [place], [address], 3 15:22:14 XR, knee, 1 or 2 view - Left Knee Pain [address] [facility], [address], [place], [address], 3 13:02:37 XR, knee, 1 or 2 view - Right Knee Pain [address] [facility], [address], [place], [address], 3 13:02:37 XR, knee, weightbeari ng - Bilateral Knee Pain [address] [facility], [address], [place], [address], 3 13:02:37 Medication Orders Kenalog 40 mg/mL suspension for injection 2022 023 [email or web address] Not available 3 13:57:06 lidocaine (PF) 10 mg/mL (1 %) injection solution 2022 023 [email or web address] Not available 3 13:57:06 Kenalog 40 mg/mL suspension for injection 2022 023 [facility] 3, [address] [place], [address], 10:01:25 lidocaine (PF) 10 mg/mL (1 %) injection solution 2022 023 [facility] 3, [address] [place], [address], 10:01:24 Patient TargetsNo targets recorded. Patient Instructions Encounter Date Encounter Id Patient Instructions Last Modified By Organization Details Last Modified Time 06/18/2022 [id number] You have been provided with a cortisone [...] following the injection. This is called a flare . To help minimize the chances of [...] bony abnormality Not available 06/18/2022 10:01:18 09/17/2022 [id number] You have been provided with a cortisone [...] following the injection. This is called a flare . To help minimize the chances of [...] Time Impingement syndrome of left shoulder region [id number] 04 Active 2022 STORM GOODWIN PA-C [address], [place], [address], [place] [facility] 3 13:46:25 Osteoarthri tis of right knee joint [id number] 00 Active 2022 STORM GOODWIN PA-C [address], [place], [address], [place] [facility], P 09:58:36 Problem Notes None recorded. Procedures Surgical History Date Name Laterality Status Provider Name and Address Organization Details Recorded Time 09/18/19 23 Shoulder Joint/Bursa Asp & Inj completed STORM GOODWIN PA-C [address], [place], [address], [place] [facility] 09/17/2022 14:04:09 06/19/19 23 Knee Joint/Bursa Asp & Inj completed STORM GOODWIN PA-C [address], [place], [address], [place] [facility] 06/18/2022 09:58:04 cholecystectomy completed Jessica Pettit [place] [facility], P 06/18/2022 09:51:11 Hysterectomy completed Jessica Pettit [place] [facility], P 06/18/2022 09:51:19 Tonsillectomy/Adeno idectomy completed Jessicajeanie Pettit [facility] 06/18/2022 09:51:37 Imaging Results None recorded. Procedure Notes None recorded. Medical Equipment None Reported. Allergies Allergen ID Allergen Name Allergen Category Reaction Reaction Severity Criticality Documentation Date Start Date Code Code System Note Provider Name and Address Organization Details Recorded Time 2174 Carafate medicatio n Not available Not available Not available 06/18/2022 43539 3 RxNorm Jessica stuart, [place] [facility] 09:47:09 2176 clotrimaz ole medicatio n Not available Not available Not available 06/18/2022 2623 RxNorm Jessica stuart, [place] [facility], P 04/13/202 3 09:47:17 2177 codeine medicatio n Not available Not available Not available 06/18/2022 2670 RxNorm Jessicajeanie Pettit null, [place] [facility] 3 09:47:27 2178 SARS-CoV- 2 (COVID-19 ) vaccine, mRNA-1273 medicatio n Not available Not available Not available 06/18/2022 63354 32 RxNorm Jessica Bridgese null, [place] [facility] 3 09:47:43 2179 erythromy olegario medicatio n Not available Not available Not available 06/18/2022 4053 RxNorm Jessica Pettit null, [place] [facility] 3 09:47:55 2180 esomepraz ole Not available Not available Not available Not available 06/18/2022 94731 2 RxNorm Jessica Pettit null, [place] [facility] 3 09:48:05 2181 Keflex medicatio n Not available Not available Not available 06/18/2022 31722 7 RxNorm Jessicajeanie Bridgese null, [place] [facility] 3 09:48:13 2182 metronida zole medicatio n Not available Not available Not available 06/18/2022 6922 RxNorm Jessicajeanie Bridgese null, [place] [facility] 3 09:48:23 2185 omeprazol e medicatio n Not available Not available Not available 06/18/2022 7646 RxNorm Jessica Bridgese null, [place] [facility] 3 09:48:29 2186 povidone- iodine medicatio n Not available Not available Not available 06/18/2022 8611 RxNorm Jessica Bridgese null, [place] [facility] 3 09:48:39 2187 rabeprazo le medicatio n Not available Not available Not available 06/18/2022 52293 9 RxNorm Jessica Bridgese null, [place] [facility] 3 09:48:47 2189 sulfameth oxazole / trimethop rim medicatio n Not available Not available Not available 06/18/2022 56786 RxNorm Jessica stuart, [place] [facility] 3 09:49:04 2190 Levaquin medicatio n Not available Not available Not available 06/18/2022 01348 2 RxNorm Jessica stuart, [facility] 3 09:49:21 2192 tetracycl ine medicatio n Not available Not available Not available 06/18/2022 40477 RxNorm Jessica stuart, [facility], P 3 09:49:33 Medications Name Sig Start [...] Not Available No t Available amoxicillin 875 mg-last infante clavulanate 125 mg tablet TAKE 1 TABLET [...] Time Mother Family history of malignant neoplasm [email or web address] Not available 2022 09:50:08 Mother Heart disease [email or web address] Not available 2022 09:50:30 Sister Family history of malignant neoplasm [email or web address] Not available 2022 09:50:08 Father Heart disease [email or web address] Not available 2022 09:50:30 Brother Heart disease [email or web address] Not available 2022 09:50:30 Brother Diabetes mellitus [email or web address] Not available 2022 09:50:46 Brother Hypertensive disorder [email or web address] Not available 2022 09:50:59 Medical History No medical history recorded. Gynecological HistoryNo gynecological history recorded. Obstetrics History GPAL:G 0 P 0 0 0 0 Past Encounters Encounter ID Performer Location Encounter Start Date Encounter Closed Date Diagnosis/Indication Diagnosis SNOMED-CT Code Diagnosis ICD10 Code Diagnosis Note [id number] [address] [facility] [address] [place] [address] 06/18/2022 09:10:50 06/18/2022 09:59:35 Pain of left knee joint 3431378885 19406 M25.562 Pain of bi lateral knee joints 4048796332 52245 M25.561 Pain of ri ght knee joint 0780251266 66910 M25.561 Osteoarthr itis of right knee joint 7842126710 15619 M17.11 [id number] BERNARDO BA [facility] [address] [facility] [address] [place] [address] 09/17/2022 13:27:55 09/17/2022 14:02:18 Pain of left shoulder joint 2287605417 6990982 M25.512 Impingemen t syndrome of left shoulder region 8013396858 99920 M75.42 Health Concerns Section Related Observation LastModified by Organization Detai ls LastModified Time None Recorded Concern Status LastModified by Organization Details LastModified Time None Recorded Advance Directives Directive None Recorded Payers Insurance Date Sequence Insurance Name Policy Number Policy Jenkins Covered Member ID Jenkins Member ID Guarantor Name 10/31/2022 1 At The [place] [id number] Aliyha Crenshaw [id number] Aliyah Crenshaw Notes Date Note Type Note [...] fevers or chills. STORM GOODWIN PA-C [address] [facility],[address], [address], [place] [facility] 06/18/2022 10:02:36 09/17/2022 text/html Very pleasant 66-year-old female kjyia-wyek-dlhzurbh chief complaint left shoulder pain at today's visit she describes it is generalized in nature overlying her deltoid with some radiation down the lateral aspect. She denies any injury here for evaluation and treatment. She does states she has a longstanding history of what she describes as polyarthralgia she is seeing another provider for her neck symptoms. STORM GOODWIN PA-C [address] [facility] [address], [place], [address], [place] [facility] 09/17/2022 14:06:16 OBGyn Episode No OBEpisode recorded.
--- OUTSIDE RECORDS SUMMARY | 2024-09-07 08:55 | XMS_ITS | Patient Health Record ---
Author Organization [facility] beni Seym[place] Address [address] [place] [address] Care Team Providers Care Environmental Protection Inspector Name Role Phone Parish HERRERA, [facility] Primary Care Provider Kyleigh Jerry Strickland Unavailable [phone] Allergies Allergen (clinical drug ingredient) Drug/Non Drug [...] W/U Status Risk Notes Problem Interstitial myositis (37154409) Interstitial myositis of right foot (M60.171) Active confirmed Plan Of Treatment Pending Test Test Name Order Date X ray : Foot, right 3V 01/02/2020 X ray : Foot, right 3V 11/22/2020 X ray : Foot, right 3V 10/14/2022 Insurance Providers Payer Name Payer Address Payer Phone Subscriber Number Group Number Insured Name Patient Relationship to Insured Coverage Start Date Coverage End Date [facility] [address] [facility] [place] [phone] [id number] Aliyah Crenshaw Self - patient is [...]
--- OUTSIDE RECORDS SUMMARY | 2024-09-07 08:56 | XMS_ITS ---
Author Name [facility] Organization Unknown History of Medication Use Medication Directions Dispensed Refills Start Date End Date Stat us Voquezna 10 MG tablet 08/20/2024 active cetirizine (ZyrTEC Allergy) 10 MG tablet Take 10 mg by mouth. 01/28/2024 active Kenalog 40 mg/mL suspension for injection Take 1 mL by injection route. 06/18/2022 active econazole 1 % topical cream APPLY TOPICALLY TO AFFECTED AREAS ON FEET AND TOES TWO TIMES A DAY FOR 4 WEEKS OR NEEDED 08/25/2022 completed nystatin 100,000 unit/mL oral suspension TAKE 5 ML BY MOUTH THREE TIMES A DAY FOR 7 DAYS; RETAIN IN MOUTH LONG POSSIBLE BEFORE SWALLOWING 08/25/2022 completed amoxicillin 875 mg-potassium clavulanate 125 mg tablet TAKE 1 TABLET BY MOUTH EVERY 12 HOURS FOR 7 DAYS active Allergies Allergen Reaction Severity Comment Documented Date Source Status AZITHROMYCIN GI INTOLERANCE/ NAUSEA/VOMIT ING 08/29/2024 [facility] active LATEX UNKNOWN/[facility]I E[facility] AND FAMILY UNABLE TO DEFINE 08/29/2024 [facility] active COVID-19 (MRNA) VACCINE HIVES Moderna Vaccine 07/31/2021 [facility] active OMEPRAZOLE OTHER (SEE COMMENTS) 07/31/2021 [facility] active CLOTRIMAZOLE UNKNOWN/EVI E[facility] AND FAMILY UNABLE TO DEFINE 10/27/2018 [facility] active LEVOFLOXACIN UNKNOWN/EVI ENT AND FAMILY UNABLE TO DEFINE 10/27/2018 [facility] active METRONIDAZOLE OTHER (SEE COMMENTS) 10/27/2018 [facility] active SUCRALFATE UNKNOWN/EVI ENT AND FAMILY UNABLE TO DEFINE 10/27/2018 [facility] active SULFAMETHOXAZOLE- TRIMETHOPRIM OTHER (SEE COMMENTS) 10/27/2018 [facility] active CODEINE ITCHING 02/07/2014 [facility] active POVIDONE IODINE OTHER (SEE COMMENTS) 02/07/2014 [facility] active ERYTHROMYCIN UNKNOWN/EVI ENT AND FAMILY UNABLE TO DEFINE erythromycin 09/03/2004 [facility] active TETRACYCLINE UNKNOWN/EVI ENT AND FAMILY UNABLE TO DEFINE tetracycline hydrochloride 09/03/2004 [facility] active CARAFATE [facility] COVID-19 VACCINE, MRNA, [id number], LNP-S (MODERNA) ENS[facility] T ERYTHROMYCIN BASE EN S_AONEC T ESOMEPRAZOLE ENS_AON EC T KEFLEX ENS_AONEC T LEVAQUIN ENS_AONEC T POVIDONE-IODINE ENS_ AONEC T RABEPRAZOLE ENS_AONE C T SEPTRA ENS_AONEC T Problems Problem Status Onset Date Problem Type Date of Resolution Source Severe obesity (BMI 35.0-39.9) with comorbidity active 2024-08-07 4 [facility]Act [facility] Anxiety disorder active 9 ProblemAct [facility] Melanocytic nevi of left upper limb, including shoulder active 9 ProblemAct [facility] Capillary disease active 2020-07-07 5 ProblemAct [facility] Pulmonary nodule active 2024-08-07 4 ProblemAct [facility] Senile hyperkeratosis active 2015-02-06 2 ProblemAct [facility] Samantha's thyroiditis active 2024-08-07 4 ProblemAct [facility] Disorder of pigmentation active 2021-02-05 4 ProblemAct [facility] Overactive bladder active 2024-08-07 4 ProblemAct [facility] Persistent depressive disorder with anxious distress, currently moderate active 2024-08-07 4 ProblemAct [facility] Ventura's esophagus active 2024-08-07 4 ProblemAct [facility] Sjogrens syndrome active 2024-08-07 4 ProblemAct [facility] Gastroesophageal reflux disease active 9 ProblemAct [facility] Neoplasm of uncertain behavior of skin active 2021-02-05 4 ProblemAct [facility] Nasal pain active EncounterDiagnosisAct [facility] Nail dystrophy active 9 ProblemAct [facility] Other melanin hyperpigmentation active 9 ProblemAct [facility] Thyroid nodule active 2024-08-07 4 ProblemAct [facility] Arthritis of knee, right active 2018-10-07 2 ProblemAct [facility] Hemangioma of skin and subcutaneous tissue active 9 ProblemAct [facility] Nonthrombocytopenic purpura active 6 ProblemAct [facility] Asthma active 9 ProblemAct [facility] Melanocytic nevi of trunk active 9 ProblemAct [facility] Sialadenitis active EncounterDiagnosisAct [facility] Inflammatory dermatosis active 2023-11-08 0 ProblemAct [facility] Other psoriasis active 2019-06-07 0 ProblemAct [facility] Partial thickness sunburn active 6 ProblemAct [facility] Benign neoplasm of skin of trunk active 3 ProblemAct [facility] Intrinsic (allergic) eczema active 9 ProblemAct [facility] Interstitial myositis active 2024-08-07 4 ProblemAct [facility] Neoplasm of uncertain behavior of lip active 9 ProblemAct [facility] Inflamed seborrheic keratosis active 2014-02-05 4 ProblemAct [facility] Tinea pedis active 2021-02-05 4 ProblemAct [facility] Open wound of left ear active 2023-11-08 0 ProblemAct [facility] Atopic dermatitis active 2021-02-05 4 ProblemAct [facility] Hyperlipidemia, unspecified active 2024-08-07 4 ProblemAct [facility] Other rosacea active 2014-08-07 2 ProblemAct [facility] Eczema active 6 ProblemAct [facility] Person with feared complaint in whom no diagnosis is made active 2020-07-07 5 ProblemAct [facility] Patellofemoral arthritis of left knee active 2020-07-07 1 ProblemAct [facility] Neck swelling active EncounterDiagnosisAct [facility] Xerosis cutis active 2020-02-06 4 ProblemAct [facility] Arthralgia of right knee active 4 ProblemAct [facility] Hearing loss active 6 ProblemAct [facility] Melanocytic nevi of right upper limb, including shoulder active 9 ProblemAct [facility] Right groin pain active 2018-12-06 5 ProblemAct [facility] Non-scarring hair loss active 9 ProblemAct [facility] Personal history of other drug therapy active 3 ProblemAct [facility] Other specified health status active 2017-06-07 5 ProblemAct [facility] Arthritis active 9 ProblemAct [facility] Hypertrophic condition of skin active 2021-02-05 4 ProblemAct [facility] Knee stiffness, right active 2019-03-08 0 ProblemAct [facility] Other seborrheic keratosis active 9 ProblemAct [facility] Impingement syndrome of right shoulder region active 1 ProblemAct [facility] Pain in left knee active 4 ProblemAct [facility] Osteoarthritis of right knee joint active 2022-06-06 3 ProblemAct [facility] Impingement syndrome of left shoulder region active 2022-09-05 3 ProblemAct [facility] Immunizations Vaccine Date Source Lot Number Status Influenza Virus Trivalent Sp lit Vaccine (MDV) IM 12/13/2023 [facility] [id number] completed Influenza Virus Trivalent Sp lit Vaccine (MDV) IM 12/07/2022 [facility] [id number] completed Pneumococcal Conjugate 20-Valent 06/05/2022 [facility] [id number] completed Influenza Virus Trivalent Sp lit Vaccine (MDV) IM 12/08/2021 [facility] [id number] completed Influenza Virus Trivalent Sp lit Vaccine (MDV) IM 01/20/2021 [facility] [id number] completed Influenza Virus Trivalent Sp lit Vaccine (MDV) IM 12/11/2019 [facility] [id number] completed Influenza [facility] 12[facility]06[facility] completed Td, Unspecified 10/24/2018 [facility] [id number] completed Influenza Virus Trivalent Sp lit Vaccine (MDV) IM 01/20/2018 [facility] completed Influenza Virus Trivalent Sp lit Vaccine (MDV) IM 12/14/2017 [facility] [id number] completed Influenza Virus Trivalent Sp lit Vaccine (MDV) IM 12/04/2016 [facility] [id number] completed Influenza Virus Trivalent Sp lit Vaccine (MDV) IM 12/09/2015 [facility] completed Zoster Vaccine Live/Attenuated (Zostavax) 02/08/2015 [facility] [id number] completed Influenza Virus Trivalent Sp lit Vaccine (MDV) IM 12/26/2014 [facility] completed Influenza Virus Trivalent Sp lit Vaccine (MDV) IM 12/22/2013 [facility] [id number] completed Tdap 03/08/2009 [facility] UNK completed Encounters Encounter Type Encounter Reason Primary Diagnosis Location Date [facility] [place] 10/13/2022 Ambulatory [facility] [place] 10/13/2022 Ambulatory [facility] [place] 09/29/2022 Ambulatory [facility] [place] 09/18/2022 Ambulatory [facility] [place] 09/17/2022 Ambulatory [facility] [place] 08/07/2022 Ambulatory [facility] [place] 06/18/2022 Care Team Organization Name Specialty Phone Email Start Date End Da te [facility] 08/29/2024 [facility] 08/22/2024 [facility] [place] AMBER DIETRICH Primary Care 02/05/2022 10/25/2023
[2024-09-07 10:07] VITALS: BMI 35.2
--- NOTE | 2024-09-07 10:07 | A.OFFVIS_ITS ---
Vital Signs 09/07/24 08:55 09/07/24 10:07 Height 5 ft 5 in Weight 211 lb 10.3 oz BMI 35.2 35.2 BP 110/70 Blood Pressure Location Lt brachial Position Sitting Pulse 78 Pulse Source Pulse Oximeter Pulse Oximetry (%) 98 Oxygen Delivery Method Room Air Intake Visit Reasons: OA Allergies erythromycin base Allergy (Severe, Verified 09/07/24 08:57) Hives Sulfa (Sulfonamide Antibiotics) Allergy (Severe, Verified 09/07/24 08:57) Hives azithromycin Allergy (Unknown, Verified 09/07/24 08:57) redness, sensative cephalexin (From Keflex) Allergy (Unknown, Verified 09/07/24 08:57) Unknown clotrimazole Allergy (Unknown, Verified 09/07/24 08:57) sensativity codeine Allergy (Unknown, Verified 09/07/24 08:57) Hives esomeprazole (From Nexium) Allergy (Unknown, Verified 09/07/24 08:57) Unknown levofloxacin (From Levaquin) Allergy (Unknown, Verified 09/07/24 08:57) Unknown metronidazole Allergy (Unknown, Verified 09/07/24 08:57) sensativity omeprazole Allergy (Unknown, Verified 09/07/24 08:57) Unknown povidone-iodine (Betadine) Allergy (Unknown, Verified 09/07/24 08:57) sensitivity rabeprazole (From AcipHex) Allergy (Unknown, Verified 09/07/24 08:57) Unknown soap (Betadine) Allergy (Unknown, Verified 09/07/24 08:57) sensativity sucralfate (Carafate) Allergy (Unknown, Verified 09/07/24 08:57) sensativity tetracycline Allergy (Unknown, Verified 09/07/24 08:57) Unknown HPI HPI OA: Details: She is experiencing nausea in the morning. She had EGD and colonoscopy, which revealed Ventura's esophagus and diverticulosis. She has had swelling in right groin region and right lateral thigh. PCP ordered CT abdomen and pelvis to evaluate for lymph nodes, which patient reports was normal. She is experiencing dry mouth while using XyliMelts and Biotene products. She continues to have dry eyes. Physical Exam Vital Signs: Last Vital Signs Pulse 78 09/07/24 08:55 BP 110/70 09/07/24 08:55 Pulse Ox 98 07/03/25 08:55 Oxygen Delivery Method Room Air 09/07/24 08:55 BMI result Body Mass Index 35.2 Const Other: General: Comfortable CVS: RRR Respiratory: clear to auscultation bilaterally. Good respiratory effort Skin: No lesions seen Lymph nodes: No cervical lymphadenopathy or inguinal lymphadenopathy appreciated. MSK: No tender joints. No synovitis. Normal range of motion of upper extremities and lower extremities. She has soft tissue swelling of right lateral thigh likely related to adipose tissue. No mass or nodule palpated. [facility] Medical History Pre-op examination Overactive bladder Sjogrens syndrome Samantha's thyroiditis Barretts esophagus Depression Asthma GERD (gastroesophageal reflux disease) History of ovarian cancer Surgical History H/O bilateral oophorectomy History of thyroglossal duct cyst removal Hx of tonsillectomy History of tubal ligation History of cholecystectomy H/O esophagogastroduodenoscopy H/O colonoscopy Family History Mother Stomach cancer MALT lymphoma Paternal Aunt Pancreatitis Family/Other Colorectal cancer Social History Are you a primary primary care sales representative to a significant other at home: No Do you presently have visiting nurse or other home services: No Patient Tobacco Use Status: Former Tobacco user Current occupational status: employed 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 I am concerned that the nausea that she is experiencing in the morning is related to uncontrolled GERD (previously had reactions to multiple treatments). Rheumatology history: Diagnosis of Sjogren syndrome seronegative (SSA/SSB negative, MIGUEL 1:160 with repeat negative. She also had positive double-stranded DNA by Crithidia negative.). Biopsy-proven. Code(s): M35.00 - Sjogren syndrome, unspecified Category: Medical Qualifiers: Sjogren organ or system involvement: keratoconjunctivitis Qualified Code(s): M35.01 - Sjogren syndrome with keratoconjunctivitis Plan: Labs for disease monitoring ordered Start pilocarpine 5 mg t.i.d. Continue XyliMelts and Biotene products PRN dry mouth Follow up with jointer machine for dry eye management. Dry eyes are not controlled with current eyedrops. She failed Restasis. GERD management per PCP. She will trial famotidine. If she experiences a side effect from famotidine, she will contact PCP for further management. Return to clinic in 3 months Orders: Orders Complete Blood Count Man Dif Today M35.00 - Sjogren syndrome, unspecified Alanine Aminotransferase Today M35.00 - Sjogren syndrome, unspecified Aspartate Amino Transferase Today M35.00 - Sjogren syndrome, unspecified Creatinine Today M35.00 - Sjogren syndrome, unspecified C Reactive Protein Today M35.00 - Sjogren syndrome, unspecified Complement C4 Today M35.00 - Sjogren syndrome, unspecified Erythrocyte Sedimentation Rate Today M35.00 - Sjogren syndrome, unspecified Complement C3 Today M35.00 - Sjogren syndrome, unspecified Rheumatoid Factor Today M35.00 - Sjogren syndrome, unspecified Protein Electrophoresis, Serum Today M35.00 - Sjogren syndrome, unspecified Medications: New pilocarpine HCl 5 mg PO TID 90 tabs 11RF
== END 2024-09-07 09:44 | disposition home or self-care (01) ==
LOC: HO.RHES 08:48
PROVIDERS: PCP Internal Medicine; Visit Provider Internal Medicine Rheumatology
DX: M35.01 Sjogren syndrome with keratoconjunctivitis (principal)
CPT/HCPCS: 99214; 99499; G2211

== ENCOUNTER 2024-11-14 08:53 | Outpatient (AMB) | payer OTHER, SELFPAY ==
[2024-11-14 08:54] VITALS: BP 114/56; PULSE 85; BMI 35.1
--- NOTE | 2024-11-14 08:54 | MHC.OFFVIS ---
Vital Signs 11/14/24 08:54 Height 5 ft 5 in Weight 211 lb BMI 35.1 BP 114/56 L Blood Pressure Location Lt brachial Position Sitting Pulse 85 Intake Visit Reasons: 3 mo f/u IBS, Gerd Intake Note: Aliyah returns to in office follow up of IBS and GERD. CC: Patient states that she has been doing well but would like to discuss Carafate with provider. Frame Table Operator Helper Required: No Accompanied by: Self / Same As Patient Allergies erythromycin base Allergy (Severe, Verified 11/14/24 09:04) Hives Sulfa (Sulfonamide Antibiotics) Allergy (Severe, Verified 11/14/24 09:04) Hives azithromycin Allergy (Unknown, Verified 11/14/24 09:04) redness, sensative cephalexin (From Keflex) Allergy (Unknown, Verified 11/14/24 09:04) Unknown clotrimazole Allergy (Unknown, Verified 11/14/24 09:04) sensativity codeine Allergy (Unknown, Verified 11/14/24 09:04) Hives esomeprazole (From Nexium) Allergy (Unknown, Verified 11/14/24 09:04) Unknown levofloxacin (From Levaquin) Allergy (Unknown, Verified 11/14/24 09:04) Unknown metronidazole Allergy (Unknown, Verified 11/14/24 09:04) sensativity omeprazole Allergy (Unknown, Verified 11/14/24 09:04) Unknown povidone-iodine (Betadine) Allergy (Unknown, Verified 11/14/24 09:04) sensitivity rabeprazole (From AcipHex) Allergy (Unknown, Verified 11/14/24 09:04) Unknown soap (Betadine) Allergy (Unknown, Verified 11/14/24 09:04) sensitivity sucralfate (Carafate) Allergy (Unknown, Verified 11/14/24 09:04) sensitivity tetracycline Allergy (Unknown, Verified 11/14/24 09:04) Unknown HPI HPI 3 mo f/u IBS, Gerd: Details: Assessment & Plan (1) GERD (gastroesophageal reflux disease): Code(s): K21.9 - Gastro-esophageal reflux disease without esophagitis Category: Medical (2) Family history of colon cancer in mother: Comment: 2024 SCOPE= 1 TA REPEAT IN 5 YEARS Code(s): Z80.0 - Family history of malignant neoplasm of digestive organs Category: Medical (3) 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: Comment: Focal area of 07/2022 scope resolved by 12/2022 scope Code(s): K22.70 - Ventura's esophagus without dysplasia Category: Medical (4) Tubular adenoma of colon: Comment: 2024 SCOPE= 1 TA REPEAT IN 5 YEARS Code(s): D12.6 - Benign neoplasm of colon, unspecified Category: Medical Plan She has multiple a/e to PPI's, she was rx'ed the 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 She is using TUMS and she has cut back on coffee, sodas etc and she is feeling better. We also discuss possible pepcid use and baking soda 1/2t 2-3 times a day. With coffee cessation the pain in her right side resolved. Again she has multiple medication allergies that have limited her use of PPIs etc. in the past. Her stooling is rabbit pellets and she strains, so we revisit considering a fiber supplement as well as colace. She also likes Raisin Bran. She will start this and titrate, she also likes prunes. SHe is agreeable to a 5 year follow up. The procedure was well tolerated. The results were explained and the patient is agreeable to the follow-up interval as stated. The bowel pattern has returned to normal. Education was provided to tell any 1st degree relatives about their findings to be sure that they are screened by age 45. Educated that they will be put on a recall list when it is time for their repeat scope but should they move out of state or away from the hospital they will need to remember along with their primary to repeat the procedure in a timely fashion to avoid any adverse complications. 8 TODAYS VISIT [facility]LY [facility] Medical History Pre-op examination Overactive bladder Sjogrens syndrome Samantha's thyroiditis Barretts esophagus Depression Asthma GERD (gastroesophageal reflux disease) History of ovarian cancer Surgical History H/O bilateral oophorectomy History of thyroglossal duct cyst removal Hx of tonsillectomy History of tubal ligation History of cholecystectomy H/O esophagogastroduodenoscopy H/O colonoscopy Family History Mother Stomach cancer MALT lymphoma Paternal Aunt Pancreatitis Family/Other Colorectal cancer Social History Are you a primary healthcare economics manager to a significant other at home: No Do you presently have visiting nurse or other home services: No Patient Tobacco Use Status: Former Tobacco user Current occupational status: employed 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 Review of Systems Const Denies fatigue, Denies fever(s), Denies night sweats, Denies poor appetite and Denies weight loss Eyes Details: glasses Reports requires corrective lenses ENT Reports Normal hearing present, Denies dental pain, Denies dysphagia, Denies hearing loss, Denies mouth pain, Denies odynophagia, Denies throat swelling, Denies tongue swelling and Reports other (Dentition adequate) Card Reports no additional complaints Resp Reports no additional complaints GI Details: Denies abdominal pain, Denies melena, Denies bloating, Denies hematochezia, Denies constipation, Denies GI cramping, Denies dysphagia, Denies excessive flatus, Denies early satiety, Reports heartburn, Denies diarrhea, Denies nausea, Denies odynophagia, Denies vomiting and Denies hematemesis Skin/Breast Denies pruritus, Denies lesions, Denies rash and Denies jaundice Neuro Reports Normal hearing present and Denies Abnormal speech present Endo Denies fatigue Aller/Immun Denies throat swelling and Denies tongue swelling Physical Exam Vital Signs: Last Vital Signs Pulse 85 11/14/24 08:54 BP 114/56 L 11/14/24 08:54 BMI result Body Mass Index 35.1 Const General: cooperative, no acute distress, well developed and well groomed Nutritional Appearance: well nourished and obese Orientation/consciousness: oriented to person, oriented to place and oriented to time Limitations: No language barrier HEENT Head: Yes normocephalic and Yes atraumatic Eyes General: appearance normal, both eyes and all related structures Pupils: Equal, round and reactive pupils present Neck Neck: Yes normal visual inspection and Yes no lymphadenopathy Thyroid: Thyroid normal Resp Effort & Inspection: normal respiratory effort and able to speak in complete sentences Auscultation: clear to auscultation bilaterally Cardio Rate: regular rate Rhythm: regular rhythm Heart sounds: Normal, physiologic split S2 sound present Peripheral pulses: radial pulses present and posterior tibial pulses present GI Inspection: No distended, No Abdominal panniculus present and Yes obesity Palpation (GI): Soft to palpation, nontender, no guarding, not rigid and No hepatosplenomegaly present Percussion: Yes normal to percussion Auscultation: normal bowel sounds Rectal Exam - Female: deferred Skin General skin exam: no rashes or lesions noted, turgor normal, skin not dry, no jaundice, No spider nevi and no striae Rashes: no rashes Nails: normal Neuro General: oriented to person, oriented to place and oriented to time Cranial nerves: Yes Equal, round and reactive pupils present and Yes Normal hearing present Speech: No Abnormal speech present Extrem General: Yes normal to inspection, No clubbing, No cyanosis and No edema Psych Appearance: grossly normal and well kempt Mental Status: mental status grossly normal Speech and movement: Normal speech and movement present Affect: normal affect Attitude: cooperative Thought process: Normal thought process present and not confabulating Thought content: Normal thought content present Insight: Good insight present (Psych) Judgement: Good judgement present (Psych) Assessment & Plan Assessment & Plan (1) GERD (gastroesophageal reflux disease): Code(s): K21.9 - Gastro-esophageal reflux disease without esophagitis Category: Medical (2) 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: Comment: Focal area of 07/2022 scope resolved by 12/2022 scope Code(s): K22.70 - Ventura's esophagus without dysplasia Category: Medical (3) Tubular adenoma of colon: Comment: 2024 SCOPE= 1 TA REPEAT IN 5 YEARS Code(s): D12.6 - Benign neoplasm of colon, unspecified Category: Medical Plan She has been receiving phone calls, multiple, of accompanied trying to get her to ?sign away my rights? or be charged 5500 dollars for her tissue Cypher test. This was from her last EGD 07/2024 which did show a focal area of metaplasia without dysplasia. She has not been taking any acid reduction therapy for her Barretts esophagus she just tries to avoid foods like coffee and soda. She has had multiple adverse reactions to a variety of PPIs and H2 medications. At this time I remind her that treatment with baking soda, half a tsp in water 3 to 4 times a day, isn't accepted treatment. She is quite agreeable to trying this. ROV 6 mmos. Coding Level of Care Code Est Pt Level 3 (13754) Diagnoses GERD (gastroesophageal reflux disease) K21.9 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 K22.70 Tubular adenoma of colon D12.6
--- OUTSIDE RECORDS SUMMARY | 2024-11-14 10:03 | XMS_ITS | Clinical Summary ---
Author Organization [facility] Address [address] [facility] [address] [place] [address] Phone Care Team Providers Care Stewarding Supervisor Name Role Phone Destiney Givens MD Primary Care Provider Social History Tobacco Use Types Packs/Day Years Used Date Smoking Tobacco: Never Assessed Education Answer Date Recorded Are you interested in more education? Not on maría e 07/03/2022 Are you concerned about learning? Not on file 07/03/2022 No 07/03/2022 No 07/03/2022 Digital Access Answer Date Recorded No 08/03/2022 No 08/03/2022 Reliable internet access at home? Not on file 08/03/2022 Device with a working camera? Not on file Comments Unknown Sex and Gender Information Value Date Recorded Sex Assigned at Not on file Legal Sex Female 11:35 AM EDT Gender Identity Not on file Sexual Orientation Not on file Last Filed Vital Signs Vital Sign Reading Time Taken Comments Blood Pressure 112/59 10/29/2014 3:08 PM EDT Pulse 72 10/29/2014 3:08 PM EDT Temperature 36.9 C (98.5 F) 10/29/2014 3:08 PM EDT Respiratory Rate 16 10/29/2014 3:08 PM EDT Oxygen Saturation - - Inhaled Oxygen Concentration - - Weight 103.9 kg (229 lb) 10/29/2014 3:08 PM EDT Height 166.4 cm (5' 5.5 ) 09/14/2012 8:59 AM EDT Body Mass Index 37.53 09/14/2012 8:59 AM EDT Plan of Treatment Health Maintenance Due Date Last Done Comments Adult Td,Tdap Booster 1955 LIPID PANEL 1956 DEPRESSION SCREENING 1968 SMOKING Hx and SMOKELESS TOBACCO SCREENING 1969 HEPATITIS C SCREENING 1974 MAMMOGRAM 1996 COLOGUARD 2001 COLONOSCOPY 2001 COLORECTAL CANCER SCREENING 2001 FIT TEST 2001 FOBT 2001 SIGMOIDOSCOPY 2001 VIRTUAL COLONOSCOPY 2001 PNEUMOCOCCAL VACCINES (50+ years) (1 of 1 - PCV) 2006 ZOSTER VACCINES (1 of 2) 2006 OSTEOPOROSIS SCREENING INITI AL (ONE-TIME) 2021 COVID-19 VACCINE (3 - 2023-2 5 season) 2023 04/04/2020, 03/07/2020 INFLUENZA VACCINE (#1) 2024 0, 12/14/2017 RSV VACCINE (1 - 1-dose 75+ series) 10/23/2031 HEPATITIS A VACCINES Aged Out No long er eligible based on patient's age to complete this topic HIB VACCINES Aged Out No longer eligi ble based on patient's age to complete this topic MENINGOCOCCAL VACCINES (ACWY) Aged Out No longer eligible based on patient's age to complete this topic MENINGOCOCCAL VACCINES (B) Aged Out N o longer eligible based on patient's age to complete this topic Medical Devices Not on file Insurance [facility] PPO [facility] [place] [address] [place] [address] [address] [place] [address] [address] [place] [address] PPO PPO PPO [facility] PPO [facility] PPO Care Teams Stewarding Supervisor Relationship Specialty Start Date End Date Destiney Givens MD [address] [place] [id number] [email or web address] PCP - General Family Medicine 10/15/14 Additional Source Comments The information contained in this document represents components of the legal health record. It is not the complete legal health record.[facility]
--- OUTSIDE RECORDS SUMMARY | 2024-11-14 10:04 | XMS_ITS | Clinical Summary ---
Author Organization [facility] Address [address] [place] [address] Care Team Providers Care Desulfurizer Hand Name Role Phone Leonides Lugo MD Primary Care Provider [phone] Allergies Active Allergy Reactions Criticality Noted Date [...] Encounters Date Type Department Care Team Description 09/13/2024 Telephone [facility] [address], [place] [address] Steve Looney MD 08/29/2024 3:45 PM EDT Office Visit [facility] [address] [address] Steve Looney MD Sialadenitis (Primary Dx); [...] 08/22 9:07 AM EDT Plan of Treatment Upcoming Encounters Date Type Department Care Team (Late st Contact Info) Description 12/04/2024 12:45 PM EDT Office Visit [facility] [address], [place] [address] Steve Looney MD [address] [place] [address] Health Maintenance Due Date Last Done Comments Advance Care Planning 1955 Hepatitis C Virus Screening 1955 Mammogram 1996 [...] patient's age to complete this topic Insurance [facility] Care Teams Desulfurizer Hand Relationship Specialty Start Date End Date Leonides Lugo MD [address] [place] [address] PCP - General Internal Medicine 08/30/24
--- OUTSIDE RECORDS SUMMARY | 2024-11-14 10:04 | XMS_ITS | Clinical Summary ---
Author Organization [facility] Address [address] [place] [address] Care Team Providers Care Set Up Person Name Role Phone Leonides Lugo MD Primary Care Provider [phone] Allergies Active Allergy Reactions Criticality Noted Date [...] 1 - PCV) 2021 Influenza Vaccine (#1) 2024 , 12/11/2019, 01/20/2018, Additional history exists RSV Adult > 60+ Yrs or (1 - 1-dose 75+ series) 10/23/2031 Hepatitis B Vaccines Aged Out No long er eligible based on patient's age to complete this topic RSV Ped < 20 months Aged Out No longe r eligible based on patient's age to complete this topic Care Teams Set Up Person Relationship Specialty Start Date End Date Leonides Lugo MD [address] [place] [address] PCP - General Internal Medicine 01/06/22
--- OUTSIDE RECORDS SUMMARY | 2024-11-14 10:04 | XMS_ITS | Encounter Summary ---
Author Organization [facility] Address [address] [place] [address] [place] [address] Phone Care Team Providers Care Application Assistant Name Role Phone Destiney Givens MD Primary Care Provider Vicky Rascon MD Unavailable [phone] Aby Adair MD Unavailable [phone] Promise Marcum MD Unavailable [phone] Encounter Details Date Type Department Care Team (Late st Contact Info) Description 03/05/2017 Procedure Pass [facility] Endoscopy Admitting Dept Virtual Department [address] [place] [id number] Social History Tobacco Use Types Packs/Day Years Used Date Smoking Tobacco: Never Assessed Comments Unknown Sex and Gender Information Value Date Recorded Sex Assigned at Not on file Legal Sex Female 11:35 AM EDT Gender Identity Not on file Sexual Orientation Not on file documented as of this encounter Plan of Treatment Not on file documented as of this encounter Visit Diagnoses Not on filedocumented in this encounter Care Teams Application Assistant Relationship Specialty Start Date End Date Destiney Givens MD [address] [place] [address] [email or web address] PCP - General Family Medicine 10/15/14 Vicky Rascon MD [address] [facility], [facility] [place] [address] [email or web address] Historical LMR Provider 12/22/16 Aby Adair MD [facility] [address] Historical LMR Provider 12/22/16 2 Promise Marcum MD [place] [id number] [email or web address] Historical LMR Provider 12/22/16 03/15/21 documented as of this encounter Additional Source Comments The information contained in this document represents components of the legal health record. It is not the complete legal health record.[facility]
--- OUTSIDE RECORDS SUMMARY | 2024-11-14 10:04 | XMS_ITS | Patient Health Record ---
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
== END 2024-11-14 09:54 | disposition home or self-care (01) ==
LOC: HO.HGI 08:53
PROVIDERS: PCP Internal Medicine; Visit Provider Nurse Practitioner
DX: K21.9 Gastro-esophageal reflux disease without esophagitis (principal); K22.70 Barrett's esophagus without dysplasia; D12.6 Benign neoplasm of colon, unspecified
CPT/HCPCS: 99213